=== PATIENT | female | born 1940 | race Caucasian/White ===

== ENCOUNTER → 2020-04-12 15:45 | Outpatient (CLI) | payer MEDICARE, OTHER, SELFPAY ==
--- NOTE | 2020-04-12 | DI.MRI.S_ITS ---
PROCEDURE: MR LUMBAR SPINE WO CON INDICATIONS: low back pain TECHNIQUE: Noncontrast sagittal T1 spin echo and T2 fast echo, sagittal STIR, axial T1 and T2 fast spin echo through the lumbar spine. In cases with scoliosis, additional coronal T2 fast spin echo may be performed. COMPARISON: Prior lumbar spine plain film 03/24/20. FINDINGS: Image quality: Excellent. Alignment and Curvature: There is normal bony alignment. Bone Marrow: Marrow is of normal overall signal. No acute vertebral body compression fractures. Spinal Cord: Conus medullaris terminates at the L1 level. Visualized cord demonstrates normal signal and size. Paraspinous Soft Tissues: No paravertebral masses. There is an apparent complex cyst seen involving the anterior right kidney that measures 1.6 cm, as on series 6 image 9 and on series 5 image 9. This cannot be defined as a simple cyst. T12-L1: No significant abnormality is seen. L1-L2: The disc height is well-preserved. Loss of disc signal is seen at this level. Mild to moderate disc bulge is seen. No significant neural foraminal narrowing is seen. Mild central canal narrowing is seen. L2-L3: The disc height is well-preserved. Loss of disc signal is seen at this level. Moderate disc bulge is seen, which is eccentric to the right. Mild facet joint hypertrophy is seen. Mild bilateral neural foraminal narrowing is seen. Moderate central canal narrowing is seen. L3-L4: The disc height is well-preserved. Loss of disc signal is seen at this level. Moderate disc bulge is seen, with a mild central disc protrusion. Moderate facet joint hypertrophy is seen. Associated hypertrophy of the ligamentum flavum can be seen. There is mild to moderate right-sided and at least moderate left-sided neural foraminal narrowing seen at this level. At least moderate central canal narrowing is seen, as on series 5 image 22. L4-L5: Postoperative changes are seen at this level, with bilateral pedicle screws and vertical fixation rods. A disc spacer is seen. There is associated susceptibility artifact. Moderate bilateral neural foraminal narrowing is seen. Mild central canal narrowing is seen. L5-S1: The disc height is well-preserved. Loss of disc signal is seen at this level. Mild to moderate disc bulge is seen. There is mild right-sided and moderate left-sided facet hypertrophy seen. There is mild to moderate right-sided and at least moderate left-sided neural foraminal narrowing seen. There is a mild degree of compression seen upon the exiting right L5 nerve root. Mild to moderate central canal narrowing is seen. IMPRESSION: Unremarkable L4-L5 postoperative change. Multiple levels of degenerative change are seen, which are most prominent at L5-S1. There is a complex cyst seen involving the right kidney anteriorly that measures 1.6 cm. In the absence of outside prior studies demonstrating this to be a simple cyst, further workup would be recommended, beginning with a renal ultrasound. Dictated by: Magdaleno Rodríguez M.D. on 04/12/2020 at 17:03 Approved by: Magdaleno Rodríguez M.D. on 04/12/2020 at 17:10
== END ==
PROVIDERS: PCP Family Medicine; Referring Provider Orthopaedic Surgery; Visit Provider Orthopaedic Surgery
DX: M54.5 Low back pain (principal); M47.817 Spondylosis without myelopathy or radiculopathy, lumbosacral region; N28.1 Cyst of kidney, acquired; Z98.1 Arthrodesis status
CPT/HCPCS: 72148

== ENCOUNTER → 2020-06-15 16:40 | Outpatient (CLI) | payer MEDICARE, OTHER, SELFPAY ==
--- NOTE | 2020-06-15 | DI.US.S_ITS ---
PROCEDURE: US RENAL COMPLETE INDICATIONS: CYST OF KIDNEY TECHNIQUE: Real-time scanning was performed of the kidneys and bladder, with image documentation. COMPARISON: [facility], MR, MR LUMBAR SPINE WO CON, 04/12/2020, 16:29. FINDINGS: Kidneys: Kidneys are normal in size. Right kidney measures 9.6 cm long; left kidney measures 9.3 cm long. Right renal cortical thickness is 1.1 cm; left renal cortical thickness is 1.5 cm. The kidneys are mildly echogenic. No definite hydronephrosis is seen, although there is mild pelvocaliectasis seen on the left. No shadowing stones are seen. No suspicious solid mass lesions. Bilateral renal cysts are seen, with the largest cyst seen on the right measuring up to 1.8 cm. Cysts are seen involving the left kidney, which measure up to 9 mm. Bladder: There is a suprapubic stoma. The bladder volume is 59 cc. There is apparent mild bladder wall thickening. Please correlate with known patient history. Miscellaneous: No free pelvic fluid. There is a 9 mm hepatic cyst seen involving the right lobe of the liver. The liver demonstrates increased echogenicity. IMPRESSION: Simple appearing renal cysts are seen. A 9 mm right liver cyst is also seen. Mild left-sided pelvocaliectasis, without emanuel hydronephrosis. The kidneys demonstrate increased echogenicity, which is consistent with medical renal disease. Postoperative change of the bladder. The liver demonstrates increased echogenicity. This finding is nonspecific, yet it is most commonly attributed to fatty infiltration. Dictated by: Magdaleno Rodríguez M.D. on 06/16/2020 at 8:21 Approved by: Magdaleno Rodríguez M.D. on 06/16/2020 at 8:25
== END ==
PROVIDERS: PCP Family Medicine; Referring Provider Family Medicine; Visit Provider Family Medicine
DX: N28.1 Cyst of kidney, acquired (principal); K76.89 Other specified diseases of liver
CPT/HCPCS: 76770

== ENCOUNTER → 2020-06-20 10:12 | Outpatient (CLI) | payer MEDICARE, OTHER, SELFPAY ==
--- NOTE | 2020-06-20 | DI.CT.S_ITS ---
PROCEDURE: CT ABDOMEN PELVIS W CON INDICATIONS: FATIGUE TECHNIQUE: After the administration of oral and intravenous contrast, 5 mm thick sections acquired from the diaphragms to the symphysis. 5 mm thick coronal and sagittal reformats were performed. For radiation dose reduction, the following was used: automated exposure control, adjustment of mA and/or kV according to patient size. COMPARISON: None. FINDINGS: Image quality: Excellent. ABDOMEN: Lung bases: A 5 mm pulmonary nodule is present at the left lung base (series 5/image 2). The lung bases are otherwise clear. Solid organs: Liver is normal in size and diffusely hypodense. Focal fat is noted at the falciform ligament. A low-density subcentimeter cyst is present within the right hepatic lobe which likely represents a simple hepatic cyst but is incompletely characterized. Gallbladder is unremarkable . Biliary system is non-dilated. Pancreas enhances normally. Spleen is normal in size and enhancement. No adrenal nodules. Kidneys are normal in size and enhancement, without hydronephrosis. A low-density cystic lesion is present within the midpole of the right kidney. Peritoneum and bowel: Stomach, small bowel, and colon loops are normal in caliber and wall thickness. The appendix is not visualized; however surgical clips are present in the region of the cecum in the lower quadrant suggesting prior appendectomy. No free fluid or air. Nodes and vessels: No retroperitoneal or mesenteric adenopathy. Aorta and inferior vena cava are normal in caliber. There are scattered atheromatous calcifications within the aorta. Miscellaneous: No ventral hernias. PELVIS: Genitourinary: Postoperative changes noted around the decompressed bladder. The uterus is surgically absent. The ovaries are not definitely visualized and may be surgically absent as well. Miscellaneous: No inguinal hernias or adenopathy. Bones: No suspicious bony lesions. No vertebral body compression fractures. Posterior fixation is noted at the lumbosacral junction and appears grossly intact. IMPRESSION: 1. 5 mm left lower lobe pulmonary nodule. Please see follow-up guidelines below. In a high-risk patient, 12 month follow-up is recommended. 2. Hepatic steatosis. 3. No acute intra-abdominal findings or findings to explain patient's fatigue. Fleischner Society criteria for SOLID lung nodule followup. Nodule size (mm)Low-risk patientHigh-risk patient<6 (single or multiple)No routine followup.Optional CT at 12 months. 6-8 (single or multiple)CT at 6-12 months, then optional CT at 18-24 mo.CT at 6-12 months, then CT at 18-24 months. >8 (single)CT at 3 months, PET-CT, or biopsy. Same as for low-risk pts. >8 (multiple)CT at 3-6 months, then optional CT at 18-24 mo.CT at 3-6 months, then CT at 18-24 months. Fleischner Society criteria for SUB-SOLID lung nodule followup. Solitary pure ground-glass nodules<6 mm (ground glass or part solid)No followup needed. 6 mm or larger (ground glass)CT at 6-12 months to confirm persistence, then CT every 2 years until 5 years.6 mm or larger (part solid)CT at 3-6 months to confirm persistence, then annual CT until 5 years if unchanged and solid component remains <6 mm. Multiple sub-solid nodules<6 mmCT at 3-6 months, then CT consider at 2 & 4 years for high risk patients. [address] at 3-6 months. Subsequent management based on most suspicious lesions. Recommendations do not apply to lung cancer screening, patients with immunosuppression, or patients with known primary cancer. Dictated by: Henny Lehman M.D. on 06/20/2020 at 15:54 Approved by: Henny Lehman M.D. on 06/20/2020 at 15:59
[2020-06-20 11:10] LABS: BUN Creatinine Ratio 14.1 (6-22); Blood Urea Nitrogen 18 mg/dL (7-17); Estimated Glomerular Filt Rate 40.3 mL/min (>60)
== END ==
PROVIDERS: PCP Family Medicine; Referring Provider Family Medicine; Visit Provider Family Medicine
DX: R53.83 Other fatigue (principal); R91.1 Solitary pulmonary nodule; K76.0 Fatty (change of) liver, not elsewhere classified
CPT/HCPCS: 36415; 74177; 82565; 84520; Q9967

== ENCOUNTER → 2020-07-05 08:12 | Outpatient (CLI) | payer MEDICARE, OTHER, SELFPAY ==
--- NOTE | 2020-07-05 09:18 | DI.ECHO.S_ITS ---
Echocardiogram Report + + :Name: DOMENICO ONEILL Study Date: 07/05/2020 Height: 60 in : :[facility] Weight: 155 lb : : Gender: Female BSA: 1.7 m2 : :: 1940 Age: 79 yrs BP: 174/91 mmHg: :Reason For Study: FATIGUE : :Ordering Physician: ALMAZ, : :ASHLEIGH Higginbotham Performed By: Saba Moore : :Referring: ASHLEIGH MUSE : + + Interpretation Summary The left ventricle is normal in size and wall thickness. Left ventricular systolic function is normal without focal wall motion abnormalities. The ejection fraction is estimated to be 60-65%. Diastolic parameters suggest a relaxation abnormality of the left ventricle, consistent with probable normal filling pressures. The right ventricle is normal in size and function. Pulmonary artery pressures cannot be estimated because of the lack of a measurable TR jet velocity but the IVC suggests a CVP of around 3 mmHg. Both atria are normal in size. There is no significant valvular heart disease. The aortic root is normal size. Procedure: A two-dimensional transthoracic echocardiogram with color flow and Doppler was performed. The study quality was technically adequate. There is no prior echocardiogram noted for this patient. The patient was in sinus rhythm with heart rates between 58-62 bpm during the exam. Left Ventricle: The left ventricle is normal in size and wall thickness. Left ventricular systolic function is normal without focal wall motion abnormalities. The ejection fraction is estimated to be 60-65%. Diastolic parameters suggest a relaxation abnormality of the left ventricle, consistent with probable normal filling pressures. Right Ventricle: The right ventricle is normal in size and function. Atria: Both atria are normal in size. There is no Doppler evidence for an interatrial shunt. Mitral Valve: The mitral valve is normal in structure and function. There is trace mitral regurgitation. Aortic Valve: The aortic valve is trileaflet. The aortic valve opens well. There is no aortic valve stenosis. No aortic regurgitation is present. Tricuspid Valve: The tricuspid valve is normal in structure and function. Pulmonary artery pressures cannot be estimated because of the lack of a measurable TR jet velocity but the IVC suggests a CVP of around 3 mmHg. There is trace tricuspid regurgitation. Pulmonic Valve: The pulmonic valve is not well visualized. There is no pulmonic valvular regurgitation. There is no significant valvular heart disease. Great Vessels: The aortic root is normal size. The ascending aorta is normal in size. The IVC is of normal diameter and collapses greater than 50% with a sniff. This suggests a low right atrial pressure of 3 mm Hg. Pericardium/ Pleura There is no pericardial effusion. There is no pleural effusion. MMode/2D Measurements & Calculations LVIDd: 4.3 cm LVOT diam: 2.0 cm LVIDs: 2.9 cm Ao root diam: 2.9 cm FS: 32.4 % asc Aorta Diam: 3.0 cm EPSS: 0.72 cm Ao Arch Diam (Prox Trans): 1.9 cm IVSd: 0.77 cm LVPWd: 0.91 cm LV slade. diameter/BSA (cm/m^2): 2.6 LV sys. diameter/BSA (cm/m^2): 1.7 LA A2 area: 13.9 cm2 RA long axis: 4.5 cm LA A4 area: 15.4 cm2 RA area: 14.2 cm2 LA length (vol): 4.9 cm RA vol: 38.3 ml LA vol: 37.1 ml RA : 22.9 ml/m2 LA vol index: 22.1 ml/m2 IVC diam: 0.94 cm RVD1 (basal): 2.6 cm TAPSE: 1.8 cm Doppler Measurements & Calculations Ao V2 max: 139.4 cm/sec LVOT Max Yusef: 94.8 cm/sec Ao V2 mean: 98.6 cm/sec LV V1 max P.6 mmHg Ao max P.8 mmHg LV V1 VTI: 20.0 cm Ao mean P.3 mmHg ROCAEL(I,D): 1.9 cm2 Ao V2 VTI: 33.0 cm ROCAEL(V,D): 2.1 cm2 sev ratio: 0.60 ROCAEL indexed to BSA (cm^2/m^2): 1.1 MV E max yusef: 64.8 cm/sec PA V2 max: 62.6 cm/sec MV A max yusef: 98.4 cm/sec PA V2 mean: 37.1 cm/sec MV E/A: 0.66 PA mean P.71 mmHg Med Peak E' Yusef: 4.6 cm/sec E/E' med: 14.2 Lat Peak E' Yusef: 5.3 cm/sec E/E' lat: 12.2 E/e' average: 13.2 MV dec time: 0.30 sec SV(OT): 61.3 ml Reading Physician:03:31 PM
== END ==
PROVIDERS: PCP Family Medicine; Referring Provider Family Medicine; Visit Provider Family Medicine
DX: R53.83 Other fatigue (principal)
CPT/HCPCS: 93306

== ENCOUNTER → 2020-07-26 13:29 | Outpatient (CLI) | payer MEDICARE, OTHER, SELFPAY ==
--- NOTE | 2020-07-26 13:31 | DI.MRI.S_ITS ---
PROCEDURE: MR HEAD/BRAIN WO CON INDICATIONS: Personality change, word finding difficulty TECHNIQUE: Non-contrast axial T1 spin echo, axial T2 fast spin echo, sagittal and axial FLAIR, coronal T2 fast spin echo, axial gradient echo, axial diffusion and ADC through the brain. COMPARISON: None. FINDINGS: Image quality: Excellent. CSF spaces: Ventricles appear symmetric in size and shape. Basal cisterns are patent. No extra-axial fluid collections. Brain: No intracranial bleeds or mass effects. There is cerebral volume loss for age. There are periventricular and deep white matter chronic small vessel ischemic changes. Brainstem appears normal. Diffusion-weighted images show a punctate focus of subacute or acute ischemic injury at the posterior gyral margin of a left parietal portion of the cerebrum, seen on series 11, image 67. . No chronic ischemic insults. Normal intravascular flow voids are present. Skull and face: Calvarial bone marrow is normal in signal. Orbits are normal. Sinuses: Sinuses and mastoids are clear. IMPRESSION: 1.5 mm focus of restricted diffusion causing focal elevated signal at the posterior border of a left parietal gyrus. No significant microvascular atherosclerotic change is seen within the deep white matter of each hemisphere. No evidence of prior hemorrhage or mass is present. Dictated by: Murphy Álvarez M.D. on 07/26/2020 at 14:44 Approved by: Murphy Álvarez M.D. on 07/26/2020 at 14:47
== END ==
PROVIDERS: PCP Student in an Organized Health Care Education/Training Program; Referring Provider Student in an Organized Health Care Education/Training Program; Visit Provider Student in an Organized Health Care Education/Training Program
DX: F68.8 Other specified disorders of adult personality and behavior (principal); R47.89 Other speech disturbances; Z13.820 Encounter for screening for osteoporosis; M81.0 Age-related osteoporosis without current pathological fracture; Z78.0 Asymptomatic menopausal state; E07.9 Disorder of thyroid, unspecified; N28.9 Disorder of kidney and ureter, unspecified; Z90.722 Acquired absence of ovaries, bilateral; Z91.89 Other specified personal risk factors, not elsewhere classified
CPT/HCPCS: 70551; 77080

== ENCOUNTER → 2020-08-07 10:02 | Outpatient (CLI) | payer MEDICARE, OTHER, SELFPAY ==
--- NOTE | 2020-08-07 10:03 | DI.US.S_ITS ---
PROCEDURE: US CAROTID DOPPLER BI INDICATIONS: CVA TECHNIQUE: Color and pulse Doppler interrogation was performed of both carotid systems, with image documentation and velocity measurements. COMPARISON: None. FINDINGS: Stenosis calculations are based on SRU (Society of Radiologists in Ultrasound) criteria. Right side: Brachial blood pressure: 146/83 mm Hg. Common carotid artery peak systolic velocity: 79 cm/sec. Internal carotid artery peak systolic velocity: 64 cm/sec. Internal carotid artery end diastolic velocity: 21 cm/sec. External carotid artery peak systolic velocity: 71 cm/sec. ICA/CCA peak systolic ratio: 0.8 . Gallegos scale imaging description: Mild plaque at the bifurcation. Percent internal carotid artery stenosis: Less than 50%. Vertebral artery: Flow direction is antegrade. Left side: Brachial blood pressure: 144/74 mm Hg. Common carotid artery peak systolic velocity: 100 cm/sec. Internal carotid artery peak systolic velocity: 62 cm/sec. Internal carotid artery end diastolic velocity: 16 cm/sec. External carotid artery peak systolic velocity: 69 cm/sec. ICA/CCA peak systolic ratio: 0.6. Gallegos scale imaging description: Minimal plaque at the bifurcation. Percent internal carotid artery stenosis: Less than 50%. Vertebral artery: Flow direction is antegrade. IMPRESSION: Less than 50% stenosis of the internal carotid arteries bilaterally. Dictated by: Consuelo Nieto M.D. on 08/07/2020 at 14:48 Approved by: Consuelo Nieto M.D. on 08/07/2020 at 14:50
== END ==
PROVIDERS: PCP Student in an Organized Health Care Education/Training Program; Referring Provider Student in an Organized Health Care Education/Training Program; Visit Provider Student in an Organized Health Care Education/Training Program
DX: I63.9 Cerebral infarction, unspecified (principal); I65.23 Occlusion and stenosis of bilateral carotid arteries
CPT/HCPCS: 93880

== ENCOUNTER 2020-08-17 12:58 | Outpatient (RCR) | payer MEDICARE, OTHER, SELFPAY ==
--- NOTE | 2020-08-17 14:51 | ST.OPIE ---
Visit Care Team Role Provider Type Josh Feliciano MD Attending Provider Physician Primary Care Provider Referring Provider Specialty: Internal Medicine Address: [address] [place] [address], [address], [address] Email: [email or web address] Speech-Language Pathology Initial Evaluation TELECOM COORDINATOR Adult Cognitive Linguistic Eval Start: 08/17/20 13:42 Freq: Status: Active Protocol: Document 08/17/20 13:43 LNK (Rec: 08/17/20 14:46 LNK [id number]) Adult Cognitive Linguistic Evaluation Session Time Visit Start Time 13:30 Visit Stop Time 14:15 Total Visit Minutes 45 Visit Information Visit Number [address] 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 The results of an MRI noted an infarct at the posterior border of the left parietal gyrus. No evidence of prior hemorrhage or mass was present. Immediately following her stroke, Molly experienced word-finding difficulty, which she reports has improved significantly. Currently she states that she does not have any slurring of speech, difficulty expressing her thoughts or difficulty with word finding. She was accompanied by her sister-in- law. Occupation Status employed - back to work Hearing Hearing Level Normal Vision Vision Status Impaired Informal Assessment Receptive Language Normal Yes Receptive Language Impairment(s) Comprehension of conversation Expressive Language Normal Yes Expressive Language Impairment(s) Expression of complex thoughts /ideas,Written expression Pragmatic Language Normal Yes Formal Assessment Standardized Test/Screener Type [facility] Mental Status (UMS) Administration Complete Results [facility] Naming Test Short Version: the results of the BNT indicated the pt was able to name 15/15 items on the short form. One response required a written multiple choice cue (sphinx). THe SLUMS score indicated a score of 28/30, which is considered normal.Molly answered one of four questions wrong following a short paragraph read to her. Findings/Results Language Function Within functional limits Cognitive Function Within functional limits Findings Molly Thrasher presented with speech, language and cognitive abilities WFL. She reported that she has returned to work. She also reported that she feels tired and seems to cry easily. It was explained to her that these symptoms following a stroke are not unusual. She was encouraged to talk to Dr. Vazquez if she continues to experince these symptoms. No ST is indicated at this time. Prognosis Prognosis Good Based on Family support Plan of Care Speech-Language Treatment No Patient/Caregiver Education Described results of evaluation,Patient expressed understanding of evaluation, Family/caregivers expressed understanding of evaluation
--- NOTE | 2020-08-17 15:01 | ST.OPDS ---
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 The results of an MRI noted an infarct at the posterior border of the left parietal gyrus. No evidence of prior hemorrhage or mass was present. Immediately following her stroke, Molly experienced word-finding difficulty, which she reports has improved significantly. Currently she states that she does not have any slurring of speech, difficulty expressing her thoughts or difficulty with word finding. She was accompanied by her sister-in- law. [ End ] Subjective Observations/Patient Presentation Molly Thrasher presented with speech, language and cognitive abilities WFL. She reported that she has returned to work. She also reported that she feels tired and seems to cry easily. It was explained to her that these symptoms following a stroke are not unusual. She was encouraged to talk to Dr. Vazquez if she continues to experience these symptoms. No ST is indicated at this time. [ End ] Chief Complaint(s) Language,Cognitive Assessment Progress Towards Goals Appropriate for Discharge Plan Amount of Therapy Recommended No Further Therapy Frequency of Treatment No Further Therapy Therapy Recommendations Discharge from Speech Therapy
== END 2020-11-15 08:42 ==
LOC: SP 12:58
PROVIDERS: PCP Student in an Organized Health Care Education/Training Program; Referring Provider Student in an Organized Health Care Education/Training Program; Visit Provider Student in an Organized Health Care Education/Training Program
DX: R47.89 Other speech disturbances (principal); I63.9 Cerebral infarction, unspecified
CPT/HCPCS: 92523

== ENCOUNTER → 2022-01-01 11:42 | Outpatient (CLI) | payer MEDICARE, OTHER, SELFPAY ==
[2022-01-01 14:28] LABS: BUN Creatinine Ratio 11.8 (6-22); Blood Urea Nitrogen 15 mg/dL (7-17); Calcium 9.6 mg/dL (8.4-10.2); Carbon Dioxide 23 mmol/L (22-32); Chloride 100 mmol/L (98-107); Estimated Glomerular Filt Rate 40.5 mL/min (>60); Glucose 95 mg/dL (80-110); Sodium 133 mmol/L (137-145)
[2022-01-01 14:55] LABS: HEMOLYSIS 107 (0-50)
[2022-01-01 14:56] LABS: Potassium 4.4 mmol/L (3.4-5.1)
== END ==
PROVIDERS: PCP Student in an Organized Health Care Education/Training Program; Referring Provider Student in an Organized Health Care Education/Training Program; Visit Provider Student in an Organized Health Care Education/Training Program
DX: I10 Essential (primary) hypertension (principal); E03.9 Hypothyroidism, unspecified; N18.31 Chronic kidney disease, stage 3a
CPT/HCPCS: 36415; 80048; 84443

== ENCOUNTER → 2022-01-09 13:30 | Outpatient (CLI) | payer MEDICARE, OTHER, SELFPAY ==
--- NOTE | 2022-01-09 13:31 | DI.CT.S_ITS ---
PROCEDURE: CT SINUS SCREEN WO CON INDICATIONS: Recurrent sinusitis TECHNIQUE: Noncontrast 3.0 mm axial images acquired from the frontal sinuses to the mid-sella, with coronal and sagittal reformats. For radiation dose reduction, the following was used: automated exposure control, adjustment of mA and/or kV according to patient size. COMPARISON: [facility], CT, SINUS SCREEN, 04/05/2010, 11:27. FINDINGS: Image quality: Excellent. Maxillary Sinuses: No bony remodeling or destruction. Sinuses are clear. Ethmoid Air Cells: No bony remodeling or destruction. Sinuses are clear. Sphenoid Sinuses: No bony remodeling or destruction. Sinuses are clear. Frontal Sinuses: No bony remodeling or destruction. Sinuses are clear. Ostiomeatal Complexes: Ostiomeatal complexes are patent, yet they are constitutionally narrowed. Right-sided Dorita air cells can be seen. Miscellaneous: Visualized intra-orbital contents are normal. No paulo bullosa or paradoxical turbinate curvature. No nasal septal deviation. IMPRESSION: No significant active paranasal sinus disease is seen. Constitutionally narrowed right ostiomeatal complex, with Dorita cells. Dictated by: Magdaleno Rodríguez M.D. on 01/09/2022 at 12:52 Approved by: Magdaleno Rodríguez M.D. on 01/09/2022 at 12:53
== END ==
PROVIDERS: PCP Student in an Organized Health Care Education/Training Program; Referring Provider Student in an Organized Health Care Education/Training Program; Visit Provider Student in an Organized Health Care Education/Training Program
DX: J32.9 Chronic sinusitis, unspecified (principal); R51.9 Headache, unspecified
CPT/HCPCS: 70486

== ENCOUNTER → 2022-01-23 08:23 | Outpatient (CLI) | payer MEDICARE, OTHER, SELFPAY ==
--- NOTE | 2022-01-23 08:26 | DI.NM.S_ITS ---
PROCEDURE: NM DEBORAH PERF SPECT REST & STR Rest and exercise myocardial perfusion SPECT with gated imaging and ejection fraction RADIOPHARMACEUTICAL: 25.3 mCi Tc-99m sestamibi IV at rest and 26.0 mCi Tc-99m sestamibi IV at peak exercise. A 6-dcm-mrtrrzdy was performed. INDICATIONS: Angina TECHNIQUE: Radiopharmaceutical was injected at peak stress test, and also at rest. SPECT images were obtained. SPECT myocardial perfusion images were displayed in short axis, horizontal long axis, and vertical long axis views. Gated images were reviewed using [employer] software. COMPARISON: None. CARDIAC STRESS: A modified Kemal treadmill exercise tolerance test was performed by the patient under the supervision of an attending staff. The patient exercised for 3 minutes and 31 seconds; 4.6 METS. Hemodynamic data: There is normal blood pressure and heart rate response to exercise stress. Patient achieved 116% of maximum predicted heart rate at peak exercise at at 163 bpm. Peak blood pressure 160/80. Symptoms: Patient denied chest pain during exercise. EKG: Sinus tachycardia, 1.5-[address] horizontal downsloping segment depressions inferior leads. FINDINGS: Raw data: There is good myocardial labeling by radiotracer. No significant motion artifacts. Skdx-ta-hrcfy ratio is 0.24 (normal is less than 0.38 for sestamibi tracer, and less than 0.50 for thallium tracer). Left ventricle function: Gated images demonstrate normal left ventricle wall thickening. No segmental wall motion abnormality. No transient ischemic dilation; TID is 1.53 (normal less than 1.3). The left ventricle resting end-diastolic volume is 47 mL. Left ventricle stress ejection fraction is >75%; normal values are above 45%. Myocardial perfusion: There is a small size, mild intensity reversible apical defect. IMPRESSION: 1. Abnormal stress test with evidence of apical ischemia on perfusion imaging and inferior ST segment depressions on exercise ECG. 2. Limited exercise capacity. 3. Normal blood pressure response to exercise. Results discussed with Dr. Feliciano. Dictated by: Roxana Carty D.O. on 01/24/2022 at 16:39 Approved by: Roxana Carty M.D. on 01/24/2022 at 16:59
--- NOTE | 2022-01-24 09:07 | P.PCN_ITS ---
Cardiac Stress Test Report Referral & Results Date Patient Seen: 01/24/22 Time Patient Seen: 08:45 Requesting provider: Josh Feliciano Indication: Angina Rest ECG: NSR Procedure Note: Today following both written and verbal informed consent the patient was exercised on Kemal protocol stage 1. Patient went for a total of 3 minutes 31 seconds achieving a maximum heart rate of 163 maximum systolic blood pressure of 160. This is approximately 4.6 METs. Exercise was terminated at this point because of fatigue and chest pressure Patient was also given Cardiolite through a previously started Hep-Lock IV by the nuclear supervising operator approximately 1 minute prior to the cessation of exercise. Exaggerated hemodynamic response to exercise. Marked impairment of exercise capacity (unable to report formal FA I estimate due to modified Kemal protocol). Complained of retrosternal chest pain (5/10) with peak exercise that improved with rest. [address] deviations in inferior leads that resolved slowly with rest. No other EKG changes. Impression: High probability for ischemia. Perfusion imaging pending. Cardiology consultation recommended. Please note: Actual ECG tracings can be found in the PACS system.
== END ==
PROVIDERS: PCP Student in an Organized Health Care Education/Training Program; Referring Provider Student in an Organized Health Care Education/Training Program; Visit Provider Student in an Organized Health Care Education/Training Program
DX: I20.8 Other forms of angina pectoris (principal); R94.39 Abnormal result of other cardiovascular function study
CPT/HCPCS: 78452; 93016; 93017; 93018; A9502

== ENCOUNTER → 2022-01-23 10:16 | Outpatient (CLI) | payer MEDICARE, OTHER, SELFPAY ==
[2022-01-23 12:53] LABS: COVID19 -Nasal RAPID Negative (Negative)
== END ==
PROVIDERS: PCP Student in an Organized Health Care Education/Training Program; Visit Provider Family Medicine Sleep Medicine
DX: Z20.822 Contact with and (suspected) exposure to COVID-19 (principal)
CPT/HCPCS: 87635; C9803

== ENCOUNTER → 2022-02-20 13:44 | Outpatient (CLI) | payer MEDICARE, OTHER, SELFPAY ==
[2022-02-20 14:32] LABS: Reticulocyte Count, Percent 2.2 % (1.1-2.6)
[2022-02-20 14:33] LABS: Hematocrit 31.7 % (36-46); Hemoglobin 10.3 g/dL (12.0-16.0); Mean Corpuscular HGB Conc 32.5 % (30-36); Mean Corpuscular Volume 77.1 fL (80-100); Platelet Count 288 X10^3/uL (150-400); Red Blood Cell Count 4.12 X10^6/uL (4.0-5.2); White Blood Cell Count 9.7 X10^3/uL (4.5-11.0)
[2022-02-20 14:36] LABS: Lactate Dehydrogenase 357 U/L (313-618)
[2022-02-20 14:59] LABS: HEMOLYSIS < 15 (0-50); Iron 64 ug/dL (37-170)
[2022-02-20 15:10] LABS: Percent Iron Saturation 13 % (15-50); Total Iron Binding Capacity 507 ug/dL (265-497); Transferrin 378 mg/dL (206-381)
[2022-02-20 15:11] LABS: Ferritin 9 ng/mL (11-264)
[2022-02-20 15:43] LABS: Folate 6.2 ng/mL (2.76-20.0); Vitamin B12 665 pg/mL (239-931)
[2022-02-21 10:17] LABS: Occult Blood 1 Negative (Negative); Occult Blood 2 Negative (Negative); Occult Blood 3 Negative (Negative); Sample 1 Time 1017
== END ==
PROVIDERS: PCP Student in an Organized Health Care Education/Training Program; Referring Provider Student in an Organized Health Care Education/Training Program; Visit Provider Student in an Organized Health Care Education/Training Program
DX: D64.9 Anemia, unspecified (principal); N18.32 Chronic kidney disease, stage 3b
CPT/HCPCS: 36415; 82270; 82607; 82728; 82746; 83540; 83550; 83615; 85027; 85045

== ENCOUNTER 2022-02-28 11:31 | Inpatient (IN) | payer MEDICARE, OTHER, SELFPAY ==
[2022-02-28] VITALS (17 sets, daily range): BP systolic 135–195; BP diastolic 46–79; PULSE 57–72; RESP 11–21; TEMP 36.3–36.8; O2SAT 96–100; BMI 29.7
--- NOTE | 2022-02-28 11:43 | DI.CT.S_ITS ---
PROCEDURE: CT ANGIO HEAD AND NECK INDICATIONS: severe headache visual changes TECHNIQUE: After the administration of intravenous contrast, 1 mm thick sections acquired from the aortic arch through the [place]. Post-contrast 4.5 mm thick sections then re-acquired from the foramen magnum to the vertex. 3-dimensional whuzfsh-acwxcsrtd-plcrzrsquq (MIP) and/or volume rendering reformats were acquired of the central intracranial vasculature and neck separately. For radiation dose reduction, the following was used: automated exposure control, adjustment of mA and/or kV according to patient size. COMPARISON: [facility], CT, CT STROKE, 02/28/2022, 11:49. FINDINGS: Image quality: Excellent. BRAIN: CSF spaces: Ventricles are normal in size and shape. Basal cisterns are patent. No extra-axial fluid collections. Brain: No midline shift. No intracranial bleeds or masses. Gallegos-white matter interface appears intact. Skull and face: Calvarium and facial bones appear intact, without suspicious lesions. Orbits appear normal. Sinuses: Sinuses and mastoids are clear. HEAD CT ANGIOGRAPHY: Anterior circulation: Intracranial internal carotid arteries are normal in size and flow. The flow within the paired anterior cerebral arteries is normal and symmetric. The flow within the middle cerebral arteries is normal and symmetric. The anterior communicating artery is seen. No aneurysms are seen. Posterior circulation: Visualized portions of the vertebral arteries demonstrate normal caliber, and join to form a normal appearing basilar artery. Flow within the posterior cerebral arteries is normal and symmetric. No aneurysms are seen. NECK CT ANGIOGRAPHY: Carotid system: The great vessels demonstrate a normal variant anatomy as they arise from the aortic arch. The left vertebral artery arises off the aortic arch, an incidental finding. The origins of the common carotid arteries appear patent. The common carotid arteries demonstrate normal caliber and courses. The bifurcation regions are both widely patent. The internal carotid arteries demonstrate mild origin disease without significant stenosis. Posterior circulation: The origins of the vertebral arteries both appear widely patent. The more superior extracranial portions of both vertebral arteries also demonstrate normal courses and calibers. The right vertebral artery is dominant. The left vertebral artery is somewhat diminutive. They join to form a normal appearing basilar artery. Soft tissues: Question superficial left pharyngeal mass obliterating the left puriform sinus. Reference image 91/12. Bones: No suspicious bony lesions. Visualized cervical spine appears normally aligned. Cervical spondylitic change. Likely canal stenosis at C3-C4 and C4-C5. IMPRESSION: 1. No evidence acute stroke, hemorrhage, or intracranial mass. 2. Unremarkable CTA head. No stenosis, aneurysm, occlusion, or focal filling defect. 3. Normal variant origin of the left vertebral artery off the aortic arch. 4. Mild bilateral internal carotid stenotic disease, non flow limiting. 5. Question left pharyngeal mass effacing the left piriformis sinus. 6. Cervical canal stenosis incidentally noted. Comment: Recommend direct visualization to exclude a left pharyngeal mass. Comment: Findings were discussed with Dr. Chanel on 02/28/2022 at 1221 hours Any quantitative measurements of stenosis were performed using NASCET criteria. Dictated by: Narayan Marvin M.D. on 02/28/2022 at 12:07 Approved by: Narayan Marvin M.D. on 02/28/2022 at 12:22
--- NOTE | 2022-02-28 11:43 | DI.CT.S_ITS ---
PROCEDURE: CT STROKE INDICATIONS: severe headache visual changes TECHNIQUE: Noncontrast 4.5 mm thick angled axial sections acquired from the foramen magnum to the vertex, with coronal reformats. For radiation dose reduction, the following was used: automated exposure control, adjustment of mA and/or kV according to patient size. COMPARISON: None. FINDINGS: Image quality: Excellent. CSF spaces: Basal cisterns are patent. No extra-axial fluid collections. The ventricles are symmetric in size and shape. Brain: No intracranial bleeds or masses. There is cerebral volume loss for age, with resultant ventricular and sulcal prominence. There are periventricular and deep white matter chronic small vessel ischemic changes. There is intracranial internal carotid artery atherosclerosis. Skull and face: Calvarium and visualized facial bones appear intact, without suspicious lesions. Sinuses: Visualized sinuses and mastoids are clear. IMPRESSION: 1. No acute intracranial abnormalities. 2. Cerebral volume loss and chronic microvascular ischemic changes. The result was discussed with Dr. Chanel. This study fulfills neurological imaging criteria for inclusion or exclusion of acute stroke therapies based on available published neurological guidelines. Dictated by: Tex Nichols M.D. on 02/28/2022 at 11:58 Approved by: Tex Nichols M.D. on 02/28/2022 at 12:00
[2022-02-28 11:58] LABS: Add Manual Diff / Slide Review NO; Basophils Absolute Auto 0 /uL (0-100); Basophils Percent Auto 0.5 % (0-2); Eosinophils Absolute Auto 100 /uL (0-450); Eosinophils Percent Auto 1.5 % (2-4); Hemoglobin 9.8 g/dL (12.0-16.0); Lymphocytes Absolute Auto 2500 /uL (1100-4500); Lymphocytes Percent Auto 33.1 % (25-40); Mean Corpuscular HGB Conc 32.8 % (30-36); Mean Corpuscular Hemoglobin 25.7 PG (26-34); Mean Corpuscular Volume 78.2 fL (80-100); Monocytes Absolute Auto 500 /uL (0-900); Monocytes Percent Auto 6.9 % (3-14); Neutrophils Absolute Auto 4400 /uL (1500-7000); Platelet Count 248 X10^3/uL (150-400); Red Blood Cell Count 3.83 X10^6/uL (4.0-5.2); Red Cell Distribution Width 17.2 % (11.6-14.8); White Blood Cell Count 7.6 X10^3/uL (4.5-11.0)
[2022-02-28 12:00] LABS: Prothrombin Time 11.8 SECONDS (10.1-12.7)
[2022-02-28 12:02] LABS: PTT Partial Thromboplastin Tim 33 SECONDS (26.4-36.2)
[2022-02-28 12:04] LABS: Alanine Aminotransferase 17 IU/L (<35); Albumin 4.3 g/dL (3.5-5.0); Albumin Globulin Ratio 1.3 (1.0-2.8); Alkaline Phosphatase 84 U/L (38-126); Aspartate Aminotransferase 25 IU/L (14-36); BUN Creatinine Ratio 13.6 (6-22); Bilirubin Total 0.3 mg/dL (0.2-1.3); Blood Urea Nitrogen 21 mg/dL (7-17); Carbon Dioxide 23 mmol/L (22-32); Chloride 97 mmol/L (98-107); Creatine Kinase 45 U/L (30-135); Estimated Glomerular Filt Rate 34 mL/min (>60); Globulin 3.3 g/dL (1.7-4.1); Glucose 121 mg/dL (80-110); HEMOLYSIS < 15 (0-50); Potassium 4.2 mmol/L (3.4-5.1); Sodium 130 mmol/L (137-145); Total Protein 7.6 g/dL (6.3-8.2)
--- NOTE | 2022-02-28 12:21 | ED_ITS ---
HPI - Neuro Symptoms/Deficit General Chief Complaint: Neuro Symptoms/Deficit Stated Complaint: Headaches/confusion/low motorfunction- heart cath Time Seen by Provider: 02/28/22 11:42 Source: patient Mode of arrival: Wheelchair History of Present Illness HPI Narrative: The patient is a 81-year-old female who presents as a code stroke with last known well at 7:00 p.m.. Has history of coronary artery disease with a recent heart catheterization 4 days ago. Presenting today with increasing headache difficulty speaking and right arm weakness. She actually had heart catheterization through her right arm. Since then she has had ongoing headache. She does not typically get headaches. She also self catheterize secondary to vaginal cancer is for multiple years. This morning she had difficulty using her right hand to self-catheterize. also noticed at breakfast she had difficulty feeding herself and holding silverware. She had a hard time getting appropriate words out as well. Headache also seem to be getting worse this morning. Symptoms do seem to be improving she is able to move her right arm and hand. She denies any chest pain or palpitations. No fever or chills. On Anticoagulants: Yes (plavix) Related Data Home Medications Medication Instructions Recorded Confirmed Vitamin D + Calcium 1 tab PO DAILY 08/01/21 01/01/22 aspirin 81 mg tablet,delayed 81 mg PO DAILY 08/01/21 01/01/22 release (Adult Low Dose Aspirin) cetirizine 10 mg tablet 10 mg PO DAILY PRN tab 08/01/21 01/01/22 Previous Rx's Medication Instructions Recorded meclizine 25 mg tablet 25 mg PO DAILY PRN #90 tab 05/30/21 levothyroxine 50 mcg capsule 50 mcg PO DAILY #90 cap 06/15/21 dimenhydrinate 50 mg tablet 50 mg PO Q4-6H PRN #30 tab 08/01/21 (Dramamine) ondansetron 4 mg disintegrating 4 mg PO Q8H PRN #14 tab 08/01/21 tablet triamterene 37.5 1 tab PO DAILY #90 tab 10/13/21 mg-hydrochlorothiazide 25 mg tablet clopidogrel 75 mg tablet 75 mg PO DAILY #90 tab 11/01/21 metoprolol tartrate 50 mg tablet 50 mg PO DAILY #90 tab 11/06/21 pravastatin 20 mg tablet 20 mg PO BEDTIME #90 tab 11/29/21 benzonatate 200 mg capsule 200 mg PO BEDTIME PRN #30 cap 01/01/22 pantoprazole 40 mg tablet,delayed 40 mg PO DAILY #90 tab 01/02/22 release allopurinol 100 mg tablet 100 mg PO DAILY #90 tab 02/01/22 Allergies Allergy/AdvReac Type Severity Reaction Status Date / Time amoxicillin [From Augmentin] Allergy Intermediate nausea/vomi Verified 02/28/22 11:40 ting clavulanic acid Allergy Intermediate nausea/vomi Verified 02/28/22 11:40 [From Augmentin] ting Review of Systems Review of Systems Narrative: GENERAL: Denies chills, fatigue, malaise, fever, sweats, travel HEENT: Denies sinus pain, ear pain, sore throat, difficulty swallowing, neck pain RESPIRATORY: Denies dyspnea, cough, wheezing, hemoptysis, sputum. CARDIOVASCULAR: Denies chest pain, palpitations, orthopnea, edema GASTROINTESTINAL: Denies nausea, vomiting, abdominal pain, diarrhea, constipation, melena. : Denies dysuria, frequency, incontinence, hematuria, urinary retention, flank pain. MUSCULOSKELETAL: Denies weakness, joint pain, or bony pain SKIN: No rash, no erythema, no pruritus NEUROLOGIC: See HPI PSYCHIATRIC: No concerning psychosocial issues. 12 point review of systems is negative except for those stated above and HPI Hematologic/Lymphatic On Anticoagulants: Yes (plavix) Patient History Medical History CVA (cerebral vascular accident) Obstructive sleep apnea Personality change Presbyacusia Vaginal melanoma Word finding difficulty Surgical History H/O cardiac catheterization Family History (Updated 02/28/22 @ 16:26 by Angelo Romero DO) Father CVA (cerebral vascular accident) CAD (coronary artery disease) Mother Congestive heart failure Social History household members: children Smoking Status: Never smoker alcohol intake: current Smoking Status: Never smoker alcohol intake frequency: holidays/special occasions only Substance Use Type: does not use Exam Initial Vital Signs Initial Vital Signs: Vital Signs Temperature 98.2 F 02/28/22 11:32 Pulse Rate 72 02/28/22 11:32 Respiratory Rate 15 02/28/22 11:32 Blood Pressure 195/78 H 02/28/22 11:32 Pulse Oximetry 98 02/28/22 11:32 GENERAL: Alert 81-year-old female appears uncomfortable and in pain HEENT: Head atraumatic,EOMI, pupils reactive, face symmetric, moist mucous membranes CARDIOVASCULAR: Regular rate and rhythm without murmurs, rubs or gallops. RESPIRATORY: Breath sounds equal bilaterally, no wheezes rales or rhonchi. ABDOMEN: Soft, nontender. Normoactive bowel sounds all 4 quadrants. No guarding or rebound. EXTREMITIES: Normal range of motion, no clubbing or edema. Neurovascularly intact. Peripheral pulses all intact slight contusion noted and right wrist but radial pulses felt NEUROLOGICAL: Alert and oriented x4.Normal gait and speech. Cranial nerves II through XII grossly intact. Good [id number], bilateral lower extremity weakness unable to do heel to love, strength equal bilaterally, difficulty with word finding but no slurring of speech sensation in tact to soft touch bilaterally, no visual changes, no facial droop SKIN: Warm, dry, no laceration, no petechiae, no rashes or lesions. Scores NIH Stroke Scale Level of Conciousness: Alert, keenly responsive Ask month/age: Answers both questions correctly. Open/close eyes, close hand: Performs both tasks correctly Best gaze horizontal: Normal Visual kaye: No visual loss Facial palsy: Normal symetrical movement Left arm drift: No drift for full 10 sec Right arm drift: No drift for full 10 sec Left leg drift: No drift for full 5 sec Right leg drift: No drift for full 5 sec Limb ataxia: Absent Sensory on face/arms/legs: Normal, no sensory loss Best language: Mild to moderate, slurs some words Dysarthria: Normal Extinction or inattention: No abnormality Total NIH Stroke scale score: 1 Course Orders Ordered: ED Orders 02/28/22 11:40 CBC Auto Diff [Complete Blood Count AUTO DIFF] Stat CMP [Comprehensive Metabolic Panel] Stat PT [Prothrombin Time INR] Stat PTT [Partial Thromboplastin Time] Stat Troponin & CK Cardiac Panel Stat 02/28/22 11:[address] angio head and neck Stat 02/28/22 11:45 EKG-12 Lead Stat 02/28/22 12:47 COVID19 -Nasal RAPID/Pre-Proc Stat 02/28/22 12:57 MR head/brain wo/w con Stat 03/01/22 05:00 Basic Metabolic Panel DAILY Complete Blood Count AUTO DIFF DAILY Magnesium DAILY 03/02/22 05:00 Basic Metabolic Panel DAILY Complete Blood Count AUTO DIFF DAILY Magnesium DAILY 03/03/22 05:00 Basic Metabolic Panel DAILY Complete Blood Count AUTO DIFF DAILY Magnesium DAILY Acetaminophen (Acetaminophen 325 Mg Tablet) 975 mg PO Q8HR PRN PRN Reason: Pain, Mild (1-3) Acetaminophen/Butalbital/Caffeine (Butalb/Apap/Caffeine 50/325/40 Tablet) 1 each PO Q6HR PRN PRN Reason: Headache Last Admin: 02/28/22 16:33 Dose: 1 each Documented by: MIGUEL Aspirin (Aspirin Ec 81 Mg Tablet) 81 mg PO DAILY [facility] Atorvastatin Calcium (Atorvastatin 20 Mg Tablet) 80 mg PO BEDTIME ELSY Last Admin: 02/28/22 20:08 Dose: 80 mg Documented by: IFRAH Clopidogrel Bisulfate (Clopidogrel 75 Mg Tablet) 75 mg PO DAILY [facility] Enoxaparin Sodium (Enoxaparin 30 Mg/0.3 Ml Syringe) 30 mg SUBCUT DAILY [facility] Naloxone HCl (Naloxone 0.4 Mg/Ml Vial) 0.2 mg IV Q2MIN PRN PRN Reason: Opiate Reversal Ondansetron HCl (Ondansetron 4 Mg Odt) 4 mg PO Q8HR PRN PRN Reason: Nausea And Vomiting Last Admin: 02/28/22 20:08 Dose: 4 mg Documented by: IFRAH Discontinued Medications Acetaminophen (Acetaminophen 325 Mg Tablet) 975 mg PO NOW ONE Stop: 02/28/22 14:01 Last Admin: 02/28/22 14:13 Dose: 975 mg Documented by: USHA Vital Signs Vital signs: Vital Signs - 8 hr 02/28/22 12:30 02/28/22 12:31 02/28/22 13:00 Pulse Rate 61 60 57 L Respiratory Rate 14 13 17 Blood Pressure 135/61 Pulse Oximetry 99 98 02/28/22 13:56 02/28/22 13:59 02/28/22 14:00 Pulse Rate 69 66 65 Respiratory Rate 21 14 Blood Pressure 152/74 H 157/78 H Pulse Oximetry 98 100 99 MDM - Neuro Symptoms/Deficit Lab Data Result diagrams: 02/28/22 11:40 05/05/22 11:40 Labs: Lab Results 02/28/22 02/28/22 02/28/22 Range/Units 11:40 11:40 11:40 WBC 7.6 (4.5-11.0) X10^3/uL RBC 3.83 L (4.0-5.2) X10^6/uL Hgb 9.8 L (12.0-16.0) g/dL Hct 30.0 L (36-46) % MCV 78.2 L (80-100) fL MCH 25.7 L (26-34) PG MCHC 32.8 (30-36) % RDW 17.2 H (11.6-14.8) % Plt Count 248 (150-400) X10^3/uL Neut % (Auto) 58.0 (50-75) % Lymph % (Auto) 33.1 (25-40) % [place] % (Auto) 6.9 (3-14) % Eos % (Auto) 1.5 L (2-4) % Baso % (Auto) 0.5 (0-2) % Neut # (Auto) 4400 (5269-0292) /uL Lymph # (Auto) 2500 (2365-8978) /uL [place] # (Auto) 500 (0-900) /uL Eos # (Auto) 100 (0-450) /uL Baso # (Auto) 0 (0-100) /uL PT 11.8 (10.1-12.7) SECONDS INR 1.0 (0.9-1.3) APTT 33 (26.4-36.2) SECONDS Sodium 130 L (137-145) mmol/L Potassium 4.2 (3.4-5.1) mmol/L Chloride 97 L (98-107) mmol/L Carbon Dioxide 23 (22-32) mmol/L BUN 21 H (7-17) mg/dL Creatinine 1.54 H (0.52-1.04) mg/dL Estimated GFR 34 L (>60) mL/min BUN/Creatinine Ratio 13.6 (6-22) Glucose 121 H (80-110) mg/dL Calcium 9.0 (8.4-10.2) mg/dL Total Bilirubin 0.3 (0.2-1.3) mg/dL AST 25 (14-36) IU/L ALT 17 (<35) IU/L Alkaline Phosphatase 84 (38-126) U/L Total Creatine Kinase 45 (30-135) U/L CK-MB (CK-2) TNP CK-MB (CK-2) Rel Index TNP Troponin I 0.040 H (0.01-0.034) ng/mL Total Protein 7.6 (6.3-8.2) g/dL Albumin 4.3 (3.5-5.0) g/dL Globulin 3.3 (1.7-4.1) g/dL Albumin/Globulin Ratio 1.3 (1.0-2.8) SARS-CoV-2 (PCR) (Negative) 02/28/22 Range/Units 12:47 WBC (4.5-11.0) X10^3/uL RBC (4.0-5.2) X10^6/uL Hgb (12.0-16.0) g/dL Hct (36-46) % MCV (80-100) fL MCH (26-34) PG MCHC (30-36) % RDW (11.6-14.8) % Plt Count (150-400) X10^3/uL Neut % (Auto) (50-75) % Lymph % (Auto) (25-40) % [place] % (Auto) (3-14) % Eos % (Auto) (2-4) % Baso % (Auto) (0-2) % Neut # (Auto) (8155-5919) /uL Lymph # (Auto) (9203-1261) /uL [place] # (Auto) (0-900) /uL Eos # (Auto) (0-450) /uL Baso # (Auto) (0-100) /uL PT (10.1-12.7) SECONDS INR (0.9-1.3) APTT (26.4-36.2) SECONDS Sodium (137-145) mmol/L Potassium (3.4-5.1) mmol/L Chloride (98-107) mmol/L Carbon Dioxide (22-32) mmol/L BUN (7-17) mg/dL Creatinine (0.52-1.04) mg/dL Estimated GFR (>60) mL/min BUN/Creatinine Ratio (6-22) Glucose (80-110) mg/dL Calcium (8.4-10.2) mg/dL Total Bilirubin (0.2-1.3) mg/dL AST (14-36) IU/L ALT (<35) IU/L Alkaline Phosphatase (38-126) U/L Total Creatine Kinase (30-135) U/L CK-MB (CK-2) CK-MB (CK-2) Rel Index Troponin I (0.01-0.034) ng/mL Total Protein (6.3-8.2) g/dL Albumin (3.5-5.0) g/dL Globulin (1.7-4.1) g/dL Albumin/Globulin Ratio (1.0-2.8) SARS-CoV-2 (PCR) Negative (Negative) Point of Care Testing Glucose POC [address] scan - head: Radiologist's Impression: ?Molly Thrasher MR#: [id number] : 1940 Acct:[id number] Age/Sex: 81 / F Date of Service: 02/28/22 Loc: ED Accession Number: [id number] ?? Procedure: CT Stroke Ordering Provider: Lucia Chanel D.O. PROCEDURE:? CT STROKE ? INDICATIONS:? severe headache visual changes ? TECHNIQUE:? Noncontrast 4.5 mm thick angled axial sections acquired from the foramen magnum to the vertex, with coronal reformats.? For radiation dose reduction, the following was used:? automated exposure control, adjustment of mA and/or kV according to patient size.? ? COMPARISON:? None. ? FINDINGS:? Image quality:? Excellent.? ? CSF spaces:? Basal cisterns are patent.? No extra-axial fluid collections.? The ventricles are symmetric in size and shape.? ? Brain:? No intracranial bleeds or masses.? There is cerebral volume loss for age, with resultant ventricular and sulcal prominence.? There are periventricular and deep white matter chronic small vessel ischemic changes.? There is intracranial internal carotid artery atherosclerosis.? ? Skull and face:? Calvarium and visualized facial bones appear intact, without suspicious lesions.? ? Sinuses:? Visualized sinuses and mastoids are clear.? ? IMPRESSION:? ? 1. No acute intracranial abnormalities. ? 2. Cerebral volume loss and chronic microvascular ischemic changes. ? The result was discussed with Dr. Chanel. ? This study fulfills neurological imaging criteria for inclusion or exclusion of acute stroke therapies based on available published neurological guidelines.? ? ? Dictated by: Tex Nichols M.D. on 02/28/2022 at 11:58 ? ? Approved by: Tex Nichols M.D. on 02/28/2022 at 12:00 ? CTA - brain/neck: Radiologist's Impression: Signed Patient: Molly Thrasher MR#: [id number] : 1940 Acct:[id number] Age/Sex: 81 / F Date of Service: 02/28/22 Loc: ED Accession Number: [id number] ?? Procedure: CT angio head and neck Ordering Provider: Lucia Chanel D.O. PROCEDURE:? CT ANGIO HEAD AND NECK ? INDICATIONS:? severe headache visual changes ? TECHNIQUE:? After the administration of intravenous contrast, 1 mm thick sections acquired from the aortic arch through the [place].? Post-contrast 4.5 mm thick sections then re-acquired from the foramen magnum to the vertex.? 3-dimensional tbtmogx-usgimphmb-knnpanqeiu (MIP) and/or volume rendering reformats were acquired of the central intracranial vasculature and neck separately. For radiation dose reduction, the following was used:? automated exposure control, adjustment of mA and/or kV according to patient size.? ? COMPARISON:? [facility], CT, CT STROKE, 02/28/2022, 11:49. ? FINDINGS:? Image quality:? Excellent.? ? BRAIN:? CSF spaces:? Ventricles are normal in size and shape.? Basal cisterns are patent.? No extra-axial fluid collections.? ? Brain:? No midline shift.? No intracranial bleeds or masses.? [place]-white matter interface appears intact.? ? Skull and face:? Calvarium and facial bones appear intact, without suspicious lesions.? Orbits appear normal.? ? Sinuses:? Sinuses and mastoids are clear.? ? HEAD CT ANGIOGRAPHY:? Anterior circulation:? Intracranial internal carotid arteries are normal in size and flow.? The flow within the paired anterior cerebral arteries is normal and symmetric.? The flow within the middle cerebral arteries is normal and symmetric.? The anterior communicating artery is seen.? No aneurysms are seen.? ? Posterior circulation:? Visualized portions of the vertebral arteries de monstrate normal caliber, and join to form a normal appearing basilar artery.? Flow within the posterior cerebral arteries is normal and symmetric.? No aneurysms are seen.? ? NECK CT ANGIOGRAPHY:? Carotid system:? The great vessels demonstrate a normal variant anatomy as they arise from the aortic arch.? The left vertebral artery arises off the aortic arch, an incidental finding.? The origins of the common carotid arteries appear patent.? The common carotid arteries demonstrate normal caliber and courses.? The bifurcation regions are both widely patent.? The internal carotid arteries demonstrate mild origin disease without significant stenosis. ? Posterior circulation:? The origins of the vertebral arteries both appear widely patent.? The more superior extracranial portions of both vertebral arteries also demonstrate normal courses and calibers.? The right vertebral artery is dominant.? The left vertebral artery is somewhat diminutive.? They join to form a normal appearing basilar artery.? ? Soft tissues:? Question superficial left pharyngeal mass obliterating the left puriform sinus.? Reference image 91/12. ? Bones:? No suspicious bony lesions.? Visualized cervical spine appears normally aligned.? Cervical spondylitic change.? Likely canal stenosis at C3-C4 and C4-C5. ? ? IMPRESSION:? ? 1. No evidence acute stroke, hemorrhage, or intracranial mass. ? 2. Unremarkable CTA head.? No stenosis, aneurysm, occlusion, or focal filling defect. ? 3. Normal variant origin of the left vertebral artery off the aortic arch.? ? 4. Mild bilateral internal carotid stenotic disease, non flow limiting. ? 5. Question left pharyngeal mass effacing the left piriformis sinus. ? 6. Cervical canal stenosis incidentally noted. ? Comment:? Recommend direct visualization to exclude a left pharyngeal mass. ? Comment: Findings were discussed with Dr. Chanel on? 02/28/2022 at 1221 hours ? Any quantitative measurements of stenosis were performed using NASCET criteria.? ? ? Dictated by: Narayan Marvin M.D. on 02/28/2022 at 12:07 ? ? Approved by: Narayan Marvin M.D. on 02/28/2022 at 12:22 ? MR stroke: Radiologist's Impression: tient: Molly Thrasher MR#: [id number] : 1940 Acct:[id number] Age/Sex: 81 / F Date of Service: 02/28/22 Loc: ED Accession Number: [id number] ?? Procedure: MR head/brain wo/w con Ordering Provider: Lucia Chanel D.O. PROCEDURE:? MR HEAD/BRAIN WO/W CON ? INDICATIONS:? tia right sided weakness, and speech ? TECHNIQUE:? Noncontrast axial T1 spin echo, axial T2 fast spin echo, sagittal and axial FLAIR, coronal T2 fast spin echo, axial gradient echo, axial diffusion and ADC through the brain.? After the administration of contrast, axial and coronal 3D VIBE or T1 s pin echo with fat saturation through the brain.? ? COMPARISON:? None. ? FINDINGS:? Image quality:? Excellent.? ? CSF Spaces:? Basal cisterns are patent.? No extra-axial fluid collections.? Ventricles are normal in size and shape.? ? Brain:? Small focus of restricted diffusion in the high left parietal lobe (series 11, image 68 and 67).? No other restricted diffusion.? The major intracranial vascul ar flow-related signal voids are maintained.? No unexpected intracranial susceptibility.? Mild global cerebral volume loss and chronic microvascular ischemic changes. ? Skull and face:? Calvarial marrow is normal in signal.? Orbits appear normal.? ? Sinuses:? Sinuses and mastoids appear clear.? ? IMPRESSION:? Small acute left parietal infarct. ? ? Dictated by: Oscar Edmondson M.D. on 02/28/2022 at 13:51 ? ? ECG Data Interpretation: Normal sinus rhythm rate 61 PA interval 202 QRS [address] changes T-wave inversion noted in lead 3 only no priors to compare MDM Narrative Medical decision making narrative: Patient not a tPA candidate last known well was 7:00 p.m. last evening. Also symptoms of right arm weakness are improving. But she still is having some more trouble in the emergency department. Blood pressure has come down without any intervention. MRI confirms CVA. Patient has good strong peripheral pulses in all extremities. Dr. Romero accepts patient Discharge Plan Departure Patient Disposition: Admitted as Observation Clinical Impression: CVA (cerebral vascular accident) Admit Date/Time: 02/28/22 14:12 Admit Provider: Angelo Romero
--- NOTE | 2022-02-28 12:57 | DI.MRI.S_ITS ---
PROCEDURE: MR HEAD/BRAIN WO/W CON INDICATIONS: tia right sided weakness, and speech TECHNIQUE: Noncontrast axial T1 spin echo, axial T2 fast spin echo, sagittal and axial FLAIR, coronal T2 fast spin echo, axial gradient echo, axial diffusion and ADC through the brain. After the administration of contrast, axial and coronal 3D VIBE or T1 spin echo with fat saturation through the brain. COMPARISON: None. FINDINGS: Image quality: Excellent. CSF Spaces: Basal cisterns are patent. No extra-axial fluid collections. Ventricles are normal in size and shape. Brain: Small focus of restricted diffusion in the high left parietal lobe (series 11, image 68 and 67). No other restricted diffusion. The major intracranial vascular flow-related signal voids are maintained. No unexpected intracranial susceptibility. Mild global cerebral volume loss and chronic microvascular ischemic changes. Skull and face: Calvarial marrow is normal in signal. Orbits appear normal. Sinuses: Sinuses and mastoids appear clear. IMPRESSION: Small acute left parietal infarct. Dictated by: Oscar Edmondson M.D. on 02/28/2022 at 13:51 Approved by: Oscar Edmondson M.D. on 02/28/2022 at 13:53
[2022-02-28 13:13] LABS: COVID19 -Nasal RAPID Negative (Negative)
[2022-02-28] MEDS: ACETAMINOPHEN 325 MG TABLET 975 MG PO (14:13)
--- NOTE | 2022-02-28 16:01 | PT.IIE ---
Medical History (Last Reviewed 02/28/22 @ 16:26 by Angelo Romero DO) CVA (cerebral vascular accident) Obstructive sleep apnea Personality change Presbyacusia Vaginal melanoma Word finding difficulty Physical Therapy Inpatient Evaluation/Re-Eval M1 PT/OT-IP Prior Functional Status Start: 02/28/22 16:36 Freq: NEEDED Status: Active Protocol: Document 02/28/22 16:01 AB (Rec: 02/28/22 16:54 AB [id number]) Medical Review Prior Functional Status Medical History Reviewed Yes Communication able to make needs known Mobility and Gait pt stated that she is independent with all mobilities and ambulation without AD Social History Household Members children Living Arrangements House Number of Floors (Floors) One Floor Number of Stairs To Enter/Railing? no steps to enter Home Environment Standard Height Toilet,Tub/ Shower Home Equipment Four Wheel Walker,Shower Seat without Backrest,Grab Bars In Shower Additional Social History Comment pt's son lives at the back lot on pt's house and can assist pt M2 PT-IP Current Condition Start: 02/28/22 16:36 Freq: NEEDED Status: Active Protocol: Document 02/28/22 16:01 AB (Rec: 02/28/22 16:54 AB [id number]) Physical Therapy Current Condition Current Condition Evaluation Date 02/28/22 Treatment Diagnosis L CVA; difficulty in walking Onset Date 02/28/22 M3 PT-IP Subjective Start: 02/28/22 16:36 Freq: NEEDED Status: Active Protocol: Document 02/28/22 16:01 AB (Rec: 02/28/22 16:54 [email or web address] Subjective Physical Therapy Visit Type Type Initial Evaluation Visit Start Time 16:01 Visit Stop Time 16:31 Total Visit Minutes 30 Number of PHOTOGRAPHIC TECHNICIAN Visits 0 Physical Therapy Visit Comments Patient Comments c/o feeling tired but agreed to move with PT Therapy Pain Assessment Pain When Pain Assessed At Rest Pain Present Pain Present Pain Reported Location head Intensity 6 Scale Used Numeric (0 - 10) Pain Management Techniques Modification of Treatment,Re- positioning,Timing of Activity with Medications M4 PT-IP Mobility and Gait Start: 02/28/22 16:36 Freq: NEEDED Status: Active Protocol: Document 02/28/22 16:01 AB (Rec: 02/28/22 16:54 AB [id number]) PT-Bed Mobility Assessment Supine to Sit Supine to Sit Independent Sit to Supine Sit to Supine Independent PT-Transfer Assessment Sit to and From Stand Sit to and from Stand Standby Assistance Equipment Transfer Assistive Device None,Gait Belt Orthotic/Prosthetic Devices or Brace: No Transfers Transfer Destination Toilet Transfer Technique ambulated Transfer Ability Level of Assist Standby Assistance,Contact Guard Assistance,1 Person Assistance,Use of Upper Extremities Comments Mobility Comments BP: 155/70 . completed bed mobility mod I. pt requested to use the toilet. completed sit to stand SBA and ambulated to the toilet SBA to CGA. managed hygiene care and brief without assistance. ambulated to the sink without AD SBA to CGA and able to maintain standing leaning on counter SBA. ambulated more in room without AD SBA to CGA ~ 40 ft. pt presents with shuffling gait. pt stated that she is tired. pt went back to bed. mod I with bed mobility. positioned in bed. call light and table placed within reach. Gait Assessment Gait Gait Assistance Required: Standby Assistance,Contact Guard Assist,1 Person Assist Distance (Feet) 40 Able to Maintain Weight Bearing Status Yes During Gait Assistive Devices Assistive Device None,Gait Belt Orthotic/Prosthetic Devices or Brace: No Gait Deviations General Gait Pattern Decreased Stride Length, Decreased Feet Clearance Factors Limiting Gait Function Factors Limiting Gait Function Decreased Activity Tolerance, Decreased Strength,Pain,Poor Balance PT-Balance Assessment Sitting Balance and Reactions Static Sitting Balance Ability Normal Dynamic Sitting Balance Ability Normal Standing Balance and Reactions Static Standing Balance Ability Good Dynamic Standing Balance Ability Fair Device Used without AD Comments Other Balance Tests/Deviations/Treatment standing with EC: steady : standing with perturbation: steady standing with NBOS: steady M5 PT-IP Objective Assessments Start: 02/28/22 16:36 Freq: NEEDED Status: Active Protocol: Document 02/28/22 16:01 AB (Rec: 02/28/22 16:54 AB [id number]) Orientation Orientation/Cognition Level of Alertness Alert Orientation Name,Age,Birthday,Month,Date, Year,Day of Week,Place, Situation Language Function Ability No Deficits Noted Safety Awareness Understands Safety Issues Memory Description No Deficits Noted Gross Range of Motion Lower Extremity ROM Assessment Within Functional Limits Strength Lower Extremity Strength Assessment Within Functional Limits Coordination Assessment Gross Coordination Gross Coordination WNL Sensation Assessment Sensation Gross Sensation WNL Muscle Tone Muscle Tone WNL Yes M6 PT-IP Treatment Start: 02/28/22 16:36 Freq: NEEDED Status: Active Protocol: Document 02/28/22 16:01 AB (Rec: 02/28/22 16:54 AB [id number]) Physical Therapy Treatment Education Education Provided Safety M7 PT-IP Assessment and Plan Start: 02/28/22 16:36 Freq: NEEDED Status: Active Protocol: Document 02/28/22 16:01 AB (Rec: 02/28/22 16:54 AB [id number]) PT Summary Assessment and Plan Potential Rehabilitation Potential Good Status of Condition at Evaluation Stable Summary Impairments Pain,ROM,Strength,Balance, Coordination,Sensation,Tone, Cognition,Bed Mobility, Transfers,Gait,Activity Tolerance Assessment Summary pt requiring SBA to CGA with mobility without AD. pt c/o feeling tired. will continue to assess progress. pt will have her son to assist her at home. Goals Transfer Goal Independent Gait Goal Independent Gait Distance 300 Days to Meet Goals 3 Frequency of Treatment Frequency Of Treatment Once a Day Treatment Plan Physical Therapy Treatment Plan Bed Mobility Training,Transfer Training,Gait Training, Therapeutic Exercise,Balance Retraining,Discharge Planning, Hot or Cold Pack,Neuromuscular Re-ed,Coordination Retraining Recommendations To Nursing Amount of Assist Needed 1 Person Assist Discharge Recommendations PT Discharge Recommendations Home with Assistance Transportation Needs at Discharge Private Vehicle
--- NOTE | 2022-02-28 16:14 | PM.HP.1 ---
History of Present Illness History of Present Illness Date Patient Seen: 02/28/22 Time Patient Seen: 16:14 Chief complaint: Headaches/confusion/low motorfunction- heart cath Narrative: 81 year old female with PMH of prior CVA, CAD with recent stenting on 02/25/22 at [facility], presents with word finding difficulties and right arm weakness that started this morning at approximately 10:30 a.m. patient states that since her left heart catheterization on Friday, she has been having intermittent headaches which are severe. She is mildly nauseous but has had no vomiting with these headaches. They had been doing better until it returned again this morning, at the same time she was about to eat breakfast and could not use her right hand, and was having a hard time speaking according to the . He noticed no lower extremity weakness, or facial droop. She denies any numbness, fevers, chills, palpitations. She states the right side of her vision is blurry or than the left, though it is slightly improving now. She currently still has a headache but denies any nausea or vomiting. She has had no abdominal pain, diarrhea, constipation, dysuria, or urinary frequency. She denies any lower extremity edema or rash. In the emergency room, the patient was mildly hypertensive but the remainder of her vital signs are unremarkable. Laboratory evaluation showed a stable anemia from her most recent labs with a hemoglobin of 9.8. Coagulation studies were unremarkable. Chemistries revealed a mild hyponatremia with a sodium of 130. Creatinine was 1.54, her baseline is unknown. Troponin was mildly elevated at 0.040. 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 MRI has already been performed and did show a left-sided acute infarct. Patient History Medical History CVA (cerebral vascular accident) Obstructive sleep apnea Personality change Presbyacusia Vaginal melanoma Word finding difficulty Surgical History H/O cardiac catheterization Family & Social History Family History (Updated 02/28/22 @ 16:26 by Angelo Romero DO) Father CVA (cerebral vascular accident) CAD (coronary artery disease) Mother Congestive heart failure Social History: household members children Prior Living Arrangements House Safety & Behavioral: Feels Safe in Current Yes Environment Been Physically Hurt or No Threatened By a Person Tobacco & Substance use: Smoking Status Never smoker alcohol intake current alcohol intake frequency holiday/special occasion Substance Use Type does not use Meds Home Medications and Allergies Home Medications Medication Instructions Recorded Confirmed Type meclizine 25 mg tablet 25 mg PO DAILY PRN #90 tab 05/30/21 01/01/22 Rx levothyroxine 50 mcg capsule 50 mcg PO DAILY #90 cap 06/15/21 01/01/22 Rx Vitamin D + Calcium 1 tab PO DAILY 08/01/21 01/01/22 History aspirin 81 mg tablet,delayed 81 mg PO DAILY 08/01/21 01/01/22 History release (Adult Low Dose Aspirin) cetirizine 10 mg tablet 10 mg PO DAILY PRN tab 08/01/21 01/01/22 History dimenhydrinate 50 mg tablet 50 mg PO Q4-6H PRN #30 tab 08/01/21 01/01/22 Rx (Dramamine) ondansetron 4 mg disintegrating 4 mg PO Q8H PRN #14 tab 08/01/21 01/01/22 Rx tablet triamterene 37.5 1 tab PO DAILY #90 tab 10/13/21 01/01/22 Rx mg-hydrochlorothiazide 25 mg tablet clopidogrel 75 mg tablet 75 mg PO DAILY #90 tab 11/01/21 01/01/22 Rx metoprolol tartrate 50 mg tablet 50 mg PO DAILY #90 tab 11/06/21 01/01/22 Rx pravastatin 20 mg tablet 20 mg PO BEDTIME #90 tab 11/29/21 01/01/22 Rx benzonatate 200 mg capsule 200 mg PO BEDTIME PRN #30 cap 01/01/22 01/01/22 Rx pantoprazole 40 mg tablet,delayed 40 mg PO DAILY #90 tab 01/02/22 Rx release allopurinol 100 mg tablet 100 mg PO DAILY #90 tab 02/01/22 Rx Allergies Allergy/AdvReac Type Severity Reaction Status Date / Time amoxicillin [From Augmentin] Allergy Intermediate nausea/vomi Verified 02/28/22 11:40 ting clavulanic acid Allergy Intermediate nausea/vomi Verified 02/28/22 11:40 [From Augmentin] ting Review of Systems Review of Systems Narrative: All other systems reviewed with the patient and are negative unless otherwise stated. Exam Vital Signs (past 8 hours): - 02/28/22 11:32 02/28/22 11:38 02/28/22 11:39 Temperature 98.2 F Pulse Rate 72 69 Respiratory Rate 15 Blood Pressure 195/78 H 195/79 H Pulse Oximetry 98 98 99 02/28/22 12:00 02/28/22 12:02 02/28/22 12:30 Temperature Pulse Rate 65 61 Respiratory Rate 11 L 14 Blood Pressure 152/64 H Pulse Oximetry 98 99 99 02/28/22 12:31 02/28/22 13:00 02/28/22 13:56 Temperature Pulse Rate 60 57 L 69 Respiratory Rate 13 17 Blood Pressure 135/61 Pulse Oximetry 98 98 02/28/22 13:59 02/28/22 14:00 02/28/22 14:35 Temperature 98.3 F Pulse Rate 66 65 58 L Respiratory Rate 21 14 16 Blood Pressure 152/74 H 157/78 H 146/54 H Pulse Oximetry 100 99 100 02/28/22 14:41 Temperature Pulse Rate Respiratory Rate Blood Pressure Pulse Oximetry 98 Oxygen Delivery Method Room Air Oxygen Flow Rate 0 Narrative Exam Narrative: General:? Patient is well developed and well nourished, in no distress at this time. HEENT:? Normocephalic, atraumatic, extraocular muscles intact, oral pharynx is clear and mucous membranes are moist. Neck: supple and symmetric, trachea is midline, no cervical adenopathy. Negative for JVD Chest:? Normal AP diameter and contour without kyphoscoliosis, no tachypnea, equal chest rise bilaterally. Lungs:? CTA b/l no wheezing rhonchi or rales. Cardio:?RRR no m/r/g. Radial pulses are +2 bilaterally. Abdomen: S NT ND. No CVA tenderness. Musculoskeletal:? Muscle strength and tone are equal within normal limits, no deformity. Extremities: No edema or joint effusions. No cyanosis or clubbing. Skin:? Pale,? Warm to touch,dry and intact without rashes, ulcerations or petechiae.? There is bruising on her right wrist from recent left heart catheterization. Neuro:? Alert and orientated x3,? sensation to touch intact in all extremities, no gross deficits noted of cranial nerves. She has mild word-finding difficulties, and reports right-sided blurry vision. Psych:? Patient has a well-kept appearance, appropriate affect, mental status attitude thought context and judgment are appropriate for age. Objective ECG Impression: Normal sinus rhythm without evidence of acute ischemia, as interpreted by me. Labs Result Diagrams: 02/28/22 11:40 02/28/22 11:40 Labs: Laboratory Results - last 24 hr 02/28/22 02/28/22 02/28/22 11:40 11:40 11:40 WBC 7.6 RBC 3.83 L Hgb 9.8 L Hct 30.0 L MCV 78.2 L MCH 25.7 L MCHC 32.8 RDW 17.2 H Plt Count 248 Neut % (Auto) 58.0 Lymph % (Auto) 33.1 Creek % (Auto) 6.9 Eos % (Auto) 1.5 L Baso % (Auto) 0.5 Neut # (Auto) 4400 Lymph # (Auto) 2500 Creek # (Auto) 500 Eos # (Auto) 100 Baso # (Auto) 0 PT 11.8 INR 1.0 APTT 33 Sodium 130 L Potassium 4.2 Chloride 97 L Carbon Dioxide 23 BUN 21 H Creatinine 1.54 H Estimated GFR 34 L BUN/Creatinine Ratio 13.6 Glucose 121 H Calcium 9.0 Total Bilirubin 0.3 AST 25 ALT 17 Alkaline Phosphatase 84 Total Creatine Kinase 45 CK-MB (CK-2) TNP CK-MB (CK-2) Rel Index TNP Troponin I 0.040 H Total Protein 7.6 Albumin 4.3 Globulin 3.3 Albumin/Globulin Ratio 1.3 SARS-CoV-2 (PCR) 02/28/22 12:47 WBC RBC Hgb Hct MCV MCH MCHC RDW Plt Count Neut % (Auto) Lymph % (Auto) Creek % (Auto) Eos % (Auto) Baso % (Auto) Neut # (Auto) Lymph # (Auto) Creek # (Auto) Eos # (Auto) Baso # (Auto) PT INR APTT Sodium Potassium Chloride Carbon Dioxide BUN Creatinine Estimated GFR BUN/Creatinine Ratio Glucose Calcium Total Bilirubin AST ALT Alkaline Phosphatase Total Creatine Kinase CK-MB (CK-2) CK-MB (CK-2) Rel Index Troponin I Total Protein Albumin Globulin Albumin/Globulin Ratio SARS-CoV-2 (PCR) Negative Assessment & Plan Assessment & Plan narrative: This is an 81 year old female with PMH of prior CVA, CAD with recent stenting on 02/25/22 at [facility], presents with word finding difficulties and right arm weakness that started this morning at approximately 10:30 a.m. MRI does show confirmatory acute infarct. She is admitted for further management of an acute CVA. 1. Acute CVA, present on admission - continue asa, plavix and statin. Replace home statin here with atorvastatin. - NIH 2 on admission exam for speech and vision. - allow for permissive hypertension, restart home meds tomorrow AM - treat for SBP > 180 with prn antihypertensive. - PT / OT / speech evaluations ordered - echo in 2019 showed no evidence of intraatrial shunt, EF was normal with a relaxation abnormality of the left ventricle. 2. Coronary artery disease with very recent stenting - continue asa/ plavix - continue statin - continue home beta lorin 3. Hypertension - hold home medications as noted in problem one. Okay to resume in AM. 4. GERD - continue PPI 5. Hypothyroidism - continue home levothyroxine - check tsh 6. Elevated troponin - possible elevated secondary to recent LHC or possibly from myocardial injury in setting of CVA - EKG reassuring, patient without chest pain, diaphoresis, nausea. - will check 8 hour follow up. continue to trend until down-trending. Code: Full, as discussed with the patient. Her surrogate decision maker she states is her spouse. Dispo: Admitted under inpatient status as her stay is expected to exceed 2 midnights. Suspect that she will likely discharge home depending on PT, OT and speech therapy evaluations. DVT: Lovenox daily I have utilized all available immediate resources to obtain, update, or review the patient's current medications. COVID-19 COVID-19 status: Negative Time Spent With Patient Critical Care time: I spent a total of [] minutes of critical care time on this patient's care today; this time is exclusive of procedural time. Scores NIHSS Level of Conciousness: Alert, keenly responsive Ask month/age: Answers both questions correctly. Open/close eyes, close hand: Performs both tasks correctly Best gaze horizontal: Normal Visual kaye: Partial hemianopia Facial palsy: Normal symetrical movement Left arm drift: No drift for full 10 sec Right arm drift: No drift for full 10 sec Left leg drift: No drift for full 5 sec Right leg drift: No drift for full 5 sec Limb ataxia: Absent Sensory on face/arms/legs: Normal, no sensory loss Best language: Mild to moderate, slurs some words Dysarthria: Normal Extinction or inattention: No abnormality Total NIH Stroke scale score: 2 Quality VTE Deep Vein Thrombosis/Pulmonary Embolism Present on Admission: No
[2022-02-28] MEDS: BUTALB/APAP/CAFFEINE 50/325/40 TABLET 1 EACH PO ×2 (16:33→22:05)
--- NOTE | 2022-02-28 18:17 | PC.NURSE ---
Day shift - I reported to Dr. Romero that Pt reported crampy pain, and warmth in bilateral calves. I told him I noted no swelling. Dr. romero gave no new orders.
[2022-02-28] MEDS: ONDANSETRON 4 MG ODT PO (20:08)
[2022-02-28] MEDS: ATORVASTATIN 20 MG TABLET 80 MG PO (20:08)
[2022-02-28 20:13] LABS: Troponin I 0.036 ng/mL (0.01-0.034)
[2022-02-28] MEDS: MELATONIN 3 MG TABLET PO (21:30)
--- NOTE | 2022-02-28 23:48 | PC.NURSE ---
At approx 1930, pt reports chest pain- 5/10, substernal, radiating towards back, feeling heavy. Reports associated nausea and mild SOB. Denies any numbness or tingling, any additional visual changes, headache, or dizziness. NIHSS score 2 for prior-standing vision issues and difficulty word finding, unchanged from prior NIHSS. Placed on 2L NC for comfort. Called hospitalist, ordered stat EKG and troponin draw. Gave patient 4 mg SL zofran for nausea. Pt later reported reduction of SOB, chest pain, and nausea, but reported increase in headache, focused behind eyes, throbbing, 5/10. Gave fioricet at approx 2200. Approx 1 hour later pt reports no relief in headache 5/10. Contacted provider, requested additional pain medication as well as an additional sleep aid, no orders as of writing this note.
[2022-03-01] VITALS (7 sets, daily range): BP systolic 123–144; BP diastolic 47–59; PULSE 60–65; RESP 16–18; TEMP 36.1–36.4; O2SAT 96–98
[2022-03-01] MEDS: diphenhydrAMINE 25 MG TABLET PO (00:09)
[2022-03-01] MEDS: TRAMADOL 50 MG TABLET PO (00:09)
--- NOTE | 2022-03-01 03:06 | DI.CT.S_ITS ---
PROCEDURE: CT STROKE INDICATIONS: continued headaches s/p left parietal infarct TECHNIQUE: Noncontrast 4.5 mm thick angled axial sections acquired from the foramen magnum to the vertex, with coronal reformats. For radiation dose reduction, the following was used: automated exposure control, adjustment of mA and/or kV according to patient size. COMPARISON: [facility], MR, MR HEAD/BRAIN WO/W CON, 02/28/2022, 13:08. [facility], CT, CT STROKE, 02/28/2022, 11:49. [facility], CT, CT ANGIO HEAD AND NECK, 02/28/2022, 11:49. FINDINGS: Image quality: Excellent. CSF spaces: Basal cisterns are patent. No extra-axial fluid collections. The ventricles are symmetric in size and shape. Brain: No intracranial bleeds or masses. There is cerebral volume loss for age, with resultant ventricular and sulcal prominence. There are periventricular and deep white matter chronic small vessel ischemic changes. There is intracranial internal carotid artery atherosclerosis. Skull and face: Calvarium and visualized facial bones appear intact, without suspicious lesions. Sinuses: Visualized sinuses and mastoids are clear. IMPRESSION: No acute intracranial disease process. This study fulfills neurological imaging criteria for inclusion or exclusion of acute stroke therapies based on available published neurological guidelines. Dictated by: Meggan Ricketts MD, PhD on 03/01/2022 at 7:14 Approved by: Meggan Ricketts MD, PhD on 03/01/2022 at 7:16
[2022-03-01] MEDS: SUMAtriptan 25 MG TABLET PO ×3 (04:10→12:05)
[2022-03-01 07:09] LABS: BUN Creatinine Ratio 13.9 (6-22); Blood Urea Nitrogen 20 mg/dL (7-17); Calcium 9.1 mg/dL (8.4-10.2); Carbon Dioxide 26 mmol/L (22-32); Chloride 98 mmol/L (98-107); Estimated Glomerular Filt Rate 37 mL/min (>60); Glucose 95 mg/dL (80-110); HEMOLYSIS < 15 (0-50); Magnesium 1.8 mg/dL (1.6-2.3); Potassium 4.5 mmol/L (3.4-5.1); Sodium 130 mmol/L (137-145)
[2022-03-01 07:11] LABS: Add Manual Diff / Slide Review NO; Basophils Absolute Auto 0 /uL (0-100); Basophils Percent Auto 0.5 % (0-2); Eosinophils Absolute Auto 100 /uL (0-450); Eosinophils Percent Auto 1.3 % (2-4); Hematocrit 27.9 % (36-46); Hemoglobin 9.2 g/dL (12.0-16.0); Lymphocytes Absolute Auto 1700 /uL (1100-4500); Lymphocytes Percent Auto 27.1 % (25-40); Mean Corpuscular HGB Conc 33.1 % (30-36); Mean Corpuscular Hemoglobin 25.4 PG (26-34); Mean Corpuscular Volume 76.9 fL (80-100); Monocytes Absolute Auto 400 /uL (0-900); Monocytes Percent Auto 6.9 % (3-14); Neutrophils Absolute Auto 4000 /uL (1500-7000); Neutrophils Percent Auto 64.2 % (50-75); Platelet Count 230 X10^3/uL (150-400); Red Blood Cell Count 3.63 X10^6/uL (4.0-5.2); Red Cell Distribution Width 16.9 % (11.6-14.8); White Blood Cell Count 6.3 X10^3/uL (4.5-11.0)
[2022-03-01 07:27] LABS: Hemoglobin A1C% w Est Avg Glu 6.7 % (4.0-6.0)
[2022-03-01 07:38] LABS: TSH w/ Reflex to FT4 2.51 uIU/mL (0.47-4.68)
[2022-03-01] MEDS: ENOXAPARIN 30 MG/0.3 ML SYRINGE SUBCUT (08:13)
[2022-03-01] MEDS: ASPIRIN EC 81 MG TABLET PO (08:13)
[2022-03-01] MEDS: CLOPIDOGREL 75 MG TABLET PO (08:13)
[2022-03-01] MEDS: BUTALB/APAP/CAFFEINE 50/325/40 TABLET 1 EACH PO (08:49)
[2022-03-01] MEDS: ACETAMINOPHEN 325 MG TABLET 975 MG PO (09:34)
--- NOTE | 2022-03-01 09:55 | OT.IP.EVAL ---
Current Diagnoses Cerebral infarction, unspecified (02/28/22) Past Medical History (Last Reviewed 02/28/22 @ 16:26 by Angelo Romero DO) CVA (cerebral vascular accident) H/O cardiac catheterization Obstructive sleep apnea Personality change Presbyacusia Vaginal melanoma Word finding difficulty Surgical History (Last Reviewed 02/28/22 @ 16:26 by Angelo Romero DO) H/O cardiac catheterization Occupational Therapy Inpatient Evaluation/Re-Eval M1 PT/OT-IP Prior Functional Status Start: 02/28/22 16:36 Freq: NEEDED Status: Active Protocol: Document 03/01/22 12:07 [facility] (Rec: 03/01/22 12:35 [facility] [id number]) Medical Review Prior Functional Status Medical History Reviewed Yes Communication able to make needs known Mobility and Gait pt stated that she is independent with all mobilities and ambulation without AD Activities of Daily Living and IADL's Pt states prior able to do all ADL's, IADL's and that her son assisted with finances and put her pills in an organizer for her. Social History Household Members children Living Arrangements House Number of Floors (Floors) One Floor Number of Stairs To Enter/Railing? NO steps to enter the house. Pt's son lives in back of the house. Home Environment Standard Height Toilet,Tub/ Shower Home Equipment Four Wheel Walker,Shower Seat without Backrest,Grab Bars In Shower M2 OT-IP Current Condition Start: 03/01/22 12:01 Freq: Status: Active Protocol: Document 03/01/22 12:07 [facility] (Rec: 03/01/22 12:35 [facility] [id number]) Occupational Therapy Current Condition Current Condition Evaluation Date 03/01/22 Treatment Diagnosis CVA, left partietal M3 OT- IP Subjective and Pain Start: 03/01/22 12:01 Freq: Status: Active Protocol: Document 03/01/22 12:07 [facility] (Rec: 03/01/22 12:35 [facility] [id number]) OT- Subjective Occupational Therapy Visit Type Type Initial Evaluation Visit Start Time 08:57 Visit Stop Time 09:55 Total Visit Minutes 58 Occupational Therapy Visit Comments Patient Comments Pt agreed to do OT eval. Patient/Caregiver Goals TO go home. OT Pain Assessment Pain When Pain Assessed At Rest Pain Present Pain Present Pain Reported Location head Intensity 6 Scale Used Numeric (0 - 10) M4 OT- IP ADL's Start: 03/01/22 12:01 Freq: Status: Active Protocol: Document 03/01/22 12:07 [facility] (Rec: 03/01/22 12:35 [facility] [id number]) OT [id number] Comments OT Self-Feeding Comments NOt at meal time. OT ADL-Grooming General Evaluation Grooming Ability Standby Assistance Areas Needing Assistance Retrieving/Set-up of Grooming Items Comments OT Grooming Comments Pt able to stand at the sink for grooming needs. OT ADL-Oral Care General Eval Oral Care Ability Standby Assistance Comments Oral Care Comments VC for orientation of the toothbrush as initially had the bristles facing out. OT ADL-Dressing Comments OT Dressing Comments not performed OT ADL-Toileting Comments OT Toileting Comments Pt able to get in and out of the bathroom on her own. Pt states self-caths herself but has been having trouble to do lately and then per pt able to urinate on her own. Notified nursing of pt's difficulty for self -cath and asked whether she is able really empty her bladder out or would be benefit from a bladder scan. pt insistent that she is fine. OT ADL-Bathing Comments OT Bathing Comments Pt wanting to shower at home. M5 OT- IP IADL's Start: 03/01/22 12:01 Freq: Status: Active Protocol: Document 03/01/22 12:07 [facility] (Rec: 03/01/22 12:35 [facility] [id number]) OT-Instrumental Activities of Daily Living Home Safety Awareness Awareness of Need for Assistance at Home Decreased Awareness Ability to Problem Solve Emergency Unable to Problem Solve Situations Home Safety Comments Pt has a very supportive son who will be home to [facility] with all her needs. Medication Management Medication Management Caregiver Administers Money Management Money Management Caregiver Provides Assistance Meal Preparation Meal Preparation Caregiver Provides Assist Marketing Performance Analyst Marketing Performance Analyst Caregiver Provides Assist Driving Driving Concerns Identified Regarding Safety M6 OT- IP Functional Cognition Start: 03/01/22 12:01 Freq: Status: Active Protocol: Document 03/01/22 12:07 [facility] (Rec: 03/01/22 12:35 [facility] [id number]) Cognitive Factors Limiting Selfcare Function Cognitive Ability Level of Alertness Alert,Confusional State Patient Orientation Name Attention Span Ability Capable of Focused Attention, Unable to Sustain Attention Ability to Follow Commands Able to Follow One Step Commands with Increased Time, Able to Follow One Step Commands with Repetition Memory Description Short Term Impaired,Working Impaired Safety Awareness Underestimates Need for Assistance Problem Solving Ability Unable to Identify Errors, Needs Assist to Identify Solutions Executive Function Ability Unable to Hold Focus,Unable to Switch Focus,Unable to Filter Distractions,Unable to Make Plans,Unable to Organize Plans ,Unable to Remember Details Cognitive Comments Cognitive Assessment Comments Pt having difficulty to follow directions and needing simple concrete cues to follow. Pt not able to figure out what 1 minute and 13 seconds equals in seconds and kept thinking that there are 30 seconds in a minute. Had to write down step by steps and pt still having trouble to add numbers and needing MAX A. Pt at times having word finding difficulties and insists she is fine but however frustrated and just wanting to get the OT assessment done. Pt also having a head ache and did not sleep well which may also contribute to her confusion and decreased functional cognition at this time. In addition pt did not have her reading glasses on and states that the numbers were blurry at times. Pt trying to write with the pen turned outside down and not able to figure out why if was not working even after it being pointed out to her. OT- Vision and Hearing OT- Hearing Assessment OT- Hearing Assessment WFL OT- Vision Assessment Visual Acuity Glasses For Reading Visual Attentiveness WFL Occular Pursuits Impaired Horizontal Visual Whiteside Impaired Vision Assessment Comments Right peripheral vision inconsistent and at times her eyes do not smoothly track together. It is suggested best for pt to get her eye check by a specialist. M7 OT- IP Mobility and Balance Start: 03/01/22 12:01 Freq: Status: Active Protocol: Document 03/01/22 12:07 [facility] (Rec: 03/01/22 12:35 [facility] [id number]) OT- Bed Mobility Assessment Supine to Sit Supine to Sit Assist Standby Assistance Sit to Supine Sit to Supine Assist Standby Assistance OT-Transfer Assessment Sit to and From Stand Sit to and from Stand Standby Assistance Transfers Transfer Ability Standby Assistance Technique Transfer Destination Bed,Toilet Transfer Technique Stand Step Pivot Devices Transfer Assistive Devices Gait Belt Comments Mobility Comments close SBA without a device and at times pt reaches out to surfaces for touch for balance . Pt feels that she is at her baseline for mobility needs. OT- Balance Assessment Sitting Balance and Reactions Static Sitting Balance Ability Good Dynamic Sitting Balance Ability Good Standing Balance and Reactions Static Standing Balance Ability Good Dynamic Standing Balance Ability Fair M8 OT- IP Objective Assessments Start: 03/01/22 12:01 Freq: Status: Active Protocol: Document 03/01/22 12:07 [facility] (Rec: 03/01/22 12:35 [facility] [id number]) OT Gross Range of Motion Upper Extremity Range of Motion Assessment Within Functional Limits OT- Coordination Assessment Comments Coordination Comments Decrease coordination in her hands due to arthritis and apraxia OT-Muscle Tone Assessment Muscle Tone WNL Yes OT Sensation Assessment Comments Summary Comments Pt decreased spatial awareness for RUE. M9 OT- IP Assessment and Plan Start: 03/01/22 12:01 Freq: Status: Active Protocol: Document 03/01/22 12:07 [facility] (Rec: 03/01/22 12:35 [facility] [id number]) OT Summary Assessment and Plan Potential Rehabilitation Potential Good Analytic Complexity at Evaluation Moderate Summary OT Impairments Pain,Balance,Coordination, Sensation,Functional Cognition ,Functional Mobility,Grooming, Dressing,Toileting,Bathing, Toilet Transfers,Shower Transfers,Activity Tolerance Progress Towards Goals Slow Progress due to Medical Issues,Slow Progress due to Cognition Assessment Summary Pt MOD complexity and main barriers are her CVA resulting in decreased functional cognition especially with word finding at times, trouble with visual focus, difficulty with motor planning in her hands, dyscalculia, decreased spatial orientation, and would now benefit from 24/7 assist and outpt BOSOM PRESSER and OT services. Goals Self-Feeding Goal Independent Grooming Goal Independent Dressing Goal Independent Toileting Goal Independent Bathing Goal Independent Toilet Transfer Goal Independent Shower Transfer Goal Independent Days to Meet Goals 25 Frequency of Treatment Frequency Of Treatment Once a Day Treatment Plan OT Treatment Plan ADL Training,Functional Cognition Training,Functional Mobility,Patient/Family Education,Discharge Planning Other Treatment Recommendations and Next shower Treatment Focus Discharge Recommendations OT Discharge Recommendations Home with 24/7 Assist Available,Outpatient PT Transportation Needs at Discharge Private Vehicle
[2022-03-01] MEDS: METOPROLOL IR 50 MG TABLET PO (10:29)
--- NOTE | 2022-03-01 10:52 | CM.DANOTE ---
Initial DCP Assessment Note Pt is an 81 yo female, resident of [place], arrives as code stroke; CVA confirmed via MRI and patient admitted for further management of an acute CVA. PMH includes CAD with recent heart stent placement PCP: Josh Feliciano Payer: [employer] Reviewed chart, pt discussed in multidisciplinary rounds this morning. Therapy has cleared pt for return home w/family to assist and pt has planned for home, Dr Mullins anticipates patient will be medically cleared for DC today Met w/patient and son Ronald this morning, introduced role. Patient admits she still has a headache. Brief visit, as son Ronald explains he has questions for the doctor and awaiting his arrival. Patient is indp and active at baseline, lives on the property with son and son available to assist as needed. 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 VIELKA Jacob Discharge Planning/Care Management CM Discharge Assessment Start: 03/01/22 10:49 Freq: Status: Active Protocol: Document 03/01/22 10:49 [facility] (Rec: 03/01/22 10:52 [facility] [id number]) Discharge Planning Assessment Assigned Art Department Head VIELKA Richter DPOA/Assigned Designee Name [email or web address] Maurer Contact Information [phone] Advance Directives? Yes Advance Directives on File No History Provided By Patient,Family Member,Medical Record Prior Living Arrangements House Household Members children Type of transporation used prior to Drives own vehicle admit Comment Son states family will now be providing transport Independent with ADL's Yes Is patient alert and oriented? Yes Patient/Family Preference OP PT Therapy Barriers to Discharge No Comment Home w/family, patient would like to return home today Discharge Plan Home Transportation Arrangement Family Referrals Initiated None needed
--- NOTE | 2022-03-01 11:45 | PT.IPTN ---
Current Diagnoses Cerebral infarction, unspecified (02/28/22) Physical Therapy Treatment Note M2 PT-IP Current Condition Start: 02/28/22 16:36 Freq: NEEDED Status: Active Protocol: Document 02/28/22 16:01 [facility] (Rec: 02/28/22 16:54 AB [id number]) Physical Therapy Current Condition Current Condition Evaluation Date 02/28/22 Treatment Diagnosis L CVA; difficulty in walking Onset Date 02/28/22 M3 PT-IP Subjective Start: 02/28/22 16:36 Freq: NEEDED Status: Active Protocol: Document 03/01/22 11:45 [facility] (Rec: 03/01/22 12:17 [facility] [id number]) Subjective Physical Therapy Visit Type Type Treatment Note Visit Start Time 11:45 Visit Stop Time 12:00 Total Visit Minutes 15 Number of DEICER REPAIRER Visits 0 Physical Therapy Visit Comments Patient Comments agreeable to do PT Therapy Pain Assessment Pain When Pain Assessed At Rest Pain Present Pain Present Pain Reported Location head Intensity 5 Scale Used Numeric (0 - 10) Pain Management Techniques Modification of Treatment, Timing of Activity with Medications M4 PT-IP Mobility and Gait Start: 02/28/22 16:36 Freq: NEEDED Status: Active Protocol: Document 03/01/22 11:45 [facility] (Rec: 03/01/22 12:17 AB [id number]) PT-Bed Mobility Assessment Supine to Sit Supine to Sit Independent Sit to Supine Sit to Supine Independent PT-Transfer Assessment Sit to and From Stand Sit to and from Stand Independent Equipment Transfer Assistive Device None Comments Mobility Comments completed supine to sit independent and ambulated in room without AD mod A. requested to go back to bed and completed sit to supine independent. pt continues to c/o a headache affecting mobility. informed pt regarding PT and agreed that no PT needs indicated at this time. Gait Assessment Gait Gait Assistance Required: Independent Distance (Feet) 50 Able to Maintain Weight Bearing Status Yes During Gait Assistive Devices Assistive Device None Orthotic/Prosthetic Devices or Brace: No Gait Deviations General Gait Pattern Decreased Stride Length, Decreased Feet Clearance Factors Limiting Gait Function Factors Limiting Gait Function Decreased Activity Tolerance, Pain,Poor Balance M5 PT-IP Objective Assessments Start: 02/28/22 16:36 Freq: NEEDED Status: Active Protocol: Document 02/28/22 16:01 AB (Rec: 02/28/22 16:54 AB [id number]) Orientation Orientation/Cognition Level of Alertness Alert Orientation Name,Age,Birthday,Month,Date, Year,Day of Week,Place, Situation Language Function Ability No Deficits Noted Safety Awareness Understands Safety Issues Memory Description No Deficits Noted Gross Range of Motion Lower Extremity ROM Assessment Within Functional Limits Strength Lower Extremity Strength Assessment Within Functional Limits Coordination Assessment Gross Coordination Gross Coordination WNL Sensation Assessment Sensation Gross Sensation WNL Muscle Tone Muscle Tone WNL Yes M6 PT-IP Treatment Start: 02/28/22 16:36 Freq: NEEDED Status: Active Protocol: Document 03/01/22 11:45 [facility] (Rec: 03/01/22 12:17 AB [id number]) Physical Therapy Treatment Education Education Provided Safety M7 PT-IP Assessment and Plan Start: 02/28/22 16:36 Freq: NEEDED Status: Active Protocol: Document 03/01/22 11:45 [facility] (Rec: 03/01/22 12:17 [facility] [id number]) PT Summary Assessment and Plan Potential Rehabilitation Potential Good Summary Assessment Summary pt doing well with mobility and is modified independent without AD. pt's son will be able to assist pt at home. No further PT intervention indicated at this time. Frequency of Treatment Frequency Of Treatment Discharge Recommendations To Nursing Amount of Assist Needed Standby Assistance Discharge Recommendations PT Discharge Recommendations Home with Assistance Transportation Needs at Discharge Private Vehicle
--- NOTE | 2022-03-01 14:10 | ST.IPSLE ---
Visit Care Team Role Provider Type Josh Feliciano MD Primary Care Provider Physician Specialty: Internal Medicine Address: [address] [place] [address], [address], [place], [address] Email: [email or web address] Lucia Chanel DO Emergency Provider Physician Referring Provider Specialty: Emergency Medicine Address: [address] [place] [address], [address] Email: [email or web address] Angelo Romero DO Admit Provider Physician Attending Provider Specialty: Internal Medicine Address: [address] [place] [address], [address] Email: [email or web address] Current Diagnoses Cerebral infarction, unspecified (02/28/22) Past Medical History (Last Reviewed 02/28/22 @ 16:26 by Angelo Romero DO) CVA (cerebral vascular accident) (Medical) H/O cardiac catheterization (Medical) Obstructive sleep apnea (Medical) Personality change (Medical) Presbyacusia (Medical) Vaginal melanoma (Medical) Word finding difficulty (Medical) Speech-Language Pathology Speech/Language Eval HAND MIXER Adult Cognitive Linguistic Eval Start: 03/01/22 13:59 Freq: Status: Active Protocol: Document 03/01/22 13:59 [facility] (Rec: 03/01/22 14:10 [facility] [id number]) Adult Cognitive Linguistic Evaluation Session Time Visit Start Time 12:30 Visit Stop Time 13:00 Total Visit Minutes 30 Setting Assessment Location Acute Care Visit Type Note Type Initial evaluation Next Note Type Next Note Type Treatment Note Patient Information Identification Type Name,Wristband Patient History Per H&P: 81 year old female with PMH of prior CVA, CAD with recent stenting on 02/25/[address] [facility], presents with word finding difficulties and right arm weakness that started this morning at approximately 10:30 a.m. patient states that since her left heart catheterization on Friday, she has been having intermittent headaches which are severe. She is mildly nauseous but has had no vomiting with these headaches. They had been doing better until it returned again this morning, at the same time she was about to eat breakfast and could not use her right hand, and was having a hard time speaking according to the . He noticed no lower extremity weakness, or facial droop. She denies any numbness, fevers, chills, palpitations. She states the right side of her vision is blurry or than the left, though it is slightly improving now. 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 MRI has already been performed and did show a left-sided acute infarct. Language(s) Spoken in the Home [place] Vision Vision Status Impaired Comments Right sided blurred vision Subjective Patient Report Pt reported difficulty with word finding, and reported improvement since yesterday. She stated word finding difficulty only occurs when she is reading, though added she had difficulty coming up with the word cactus when labeling pictures during this hospital stay. Difficulty with word finding when reading was described as words blurring together, making it challenging to identify the beginning and ends of words. Mental Status Alert,Responsive,Cooperative Assessment Oral Motor Examination Completed No Findings/Results Cognitive Function Mildly impaired Findings Trialed reading with a guide to separate words in an effort to reduce impact of blurry vision. Pt read sentences 1 word at a time and read an entire sentence without the guide. Reading was slowed, but WFL. Completed picture naming task and pt named 5/6 pictured items. She was unable to name the last item despite verbal and phonemic cues. Discussed strategies for improved word finding and pt indicated understanding of exercises. Pt scheduled to discharge home today and seek outpatient speech therapy for additional assistance with word finding difficulty. Cognitive Communication Deficits Self-awareness of Cognitive- Situational awareness ( Communication Deficits recognition of problem in context;in real time) Prognosis Prognosis Good Based on Cognitive status,Family support,Duration of symptoms/ severity,Time since onset Plan of Care Speech-Language Treatment Yes Patient/Caregiver Education Patient expressed agreement with goals and treatment plans ,Family/caregivers expressed agreement with goals and treatment plan,Patient requires further education/ training,Family/caregivers require further education/ training Discharge Recommendations Home,Outpatient therapy
--- NOTE | 2022-03-01 19:35 | P.DS_ITS ---
History of Present Illness History of Present Illness Date Patient Seen: 03/01/22 Chief complaint: Headaches/confusion/low motorfunction- heart cath Narrative: 81 year old female with PMH of prior CVA, CAD with recent stenting on 02/25/22 at [facility], presents with word finding difficulties and right arm weakness that started this morning at approximately 10:30 a.m. patient states that since her left heart catheterization on Friday, she has been having intermittent headaches which are severe.? She is mildly nauseous but has had no vomiting with these headaches.? They had been doing better until it returned again this morning, at the same time she was about to eat breakfast and could not use her right hand, and was having a hard time speaking according to the .? He noticed no low er extremity weakness, or facial droop.? She denies any numbness, fevers, chills, palpitations.? She states the right side of her vision is blurry or than the left, though it is slightly improving now.? She currently still has a headache but denies any nausea or vomiting.? She has had no abdominal pain, diarrhea, constipation, dysuria, or urinary frequency.? She denies any lower extremity edema or rash. In the emergency room, the patient was mildly hypertensive but the remainder of her vital signs are unremarkable.? Laboratory evaluation showed a stable anemia from her most recent labs with a hemoglobin of 9.8.? Coagulation studies were unremarkable.? Chemistries revealed a mild hyponatremia with a sodium of 130.? Creatinine was 1.54, her baseline is unknown.? Troponin was mildly elevated at 0.040.? Head CT performed in the emergency room showed no acute abnormalities, CT angiogram showed a possible pharyngeal mass, but no other acute intracranial anomalies.? MRI has already been performed and did show a left-sided acute infarct. Discharge Providers Provider Date of admission: 02/28/22 14:12 Discharge Date: 03/01/22 Primary care physician: Josh Feliciano MD Consults: 02/28/22 15:35 Consult to Physical Therapy Evaluate & Treat Comment: Physician Instructions: Evaluate and Treat 02/28/22 15:38 Consult to Occupational Therapy Evaluate & Treat Comment: Physician Instructions: Evaluate and treat Consult to Speech Therapy Evaluate & Treat Comment: Physician Instructions: Evaluate and treat Discharge provider: Boni Mullins MD Summary Hospital Course Discharge Diagnosis: 1. Acute left parietal ischemic CVA 2. Coronary artery disease status post recent stenting 3. 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 Chronic kidney disease stage III 5. Microcytic anemia unknown chronicity Hospital Course: As noted patient presented with headache, right hand weakness and aphasia. She was noted to have a right visual cut as well. The weakness has resolved. She still has mild aphasia and right visual field deficit. She was already on aspirin and Plavix from recent stent. Switched her pravastatin to atorvastatin. She will follow-up with outpatient therapy. Instructed not to drive. 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 She reports chronic problems with swallowing. Recommended to follow-up with ENT Dr. Crouch for direct visualization. Status at Discharge Cognitive/behavioral status at discharge: oriented Functional status at discharge: independent ambulation Overall status at discharge: patient is progressing back to baseline Exam Vital Signs (past 8 hours): - 03/01/22 14:00 Pulse Oximetry 96 Oxygen Delivery Method Room Air Oxygen Flow Rate 0 Narrative Exam Narrative: General: Alert NAD Neurological: Fully oriented, right visual field deficits noted, right upper extremity strength is back to normal, mild word-finding difficulties Objective Labs Result Diagrams: 03/01/22 06:28 03/01/22 06:28 Labs: Laboratory Results - last 24 hr 02/28/22 03/01/22 03/01/22 19:40 06:28 06:28 WBC RBC Hgb Hct MCV MCH MCHC RDW Plt Count Neut % (Auto) Lymph % (Auto) Craig % (Auto) Eos % (Auto) Baso % (Auto) Neut # (Auto) Lymph # (Auto) Craig # (Auto) Eos # (Auto) Baso # (Auto) Sodium Potassium Chloride Carbon Dioxide BUN Creatinine Estimated GFR BUN/Creatinine Ratio Glucose Hemoglobin A1c 6.7 H Calcium Magnesium Troponin I 0.036 H TSH 2.51 03/01/22 03/01/22 06:28 06:28 WBC 6.3 RBC 3.63 L Hgb 9.2 L Hct 27.9 L MCV 76.9 L MCH 25.4 L MCHC 33.1 RDW 16.9 H Plt Count 230 Neut % (Auto) 64.2 Lymph % (Auto) 27.1 Craig % (Auto) 6.9 Eos % (Auto) 1.3 L Baso % (Auto) 0.5 Neut # (Auto) 4000 Lymph # (Auto) 1700 Craig # (Auto) 400 Eos # (Auto) 100 Baso # (Auto) 0 Sodium 130 L Potassium 4.5 Chloride 98 Carbon Dioxide 26 BUN 20 H Creatinine 1.44 H Estimated GFR 37 L BUN/Creatinine Ratio 13.9 Glucose 95 Hemoglobin A1c Calcium 9.1 Magnesium 1.8 Troponin I [facility] Medical History CVA (cerebral vascular accident) Obstructive sleep apnea Personality change Presbyacusia Vaginal melanoma Word finding difficulty Surgical History H/O cardiac catheterization Family History (Updated 02/28/22 @ 16:26 by Angelo Romero DO) Father CVA (cerebral vascular accident) CAD (coronary artery disease) Mother Congestive heart failure Social History household members: children Smoking Status: Never smoker alcohol intake: current Discharge Plan Discharge Plan Patient Disposition: Home Provider Discharge Comment: You were diagnosed with left parietal ischemic stroke. Follow up with outpatient therapy. No driving. Neck CT showed a pharyngeal mass near the vocal cords. Follow up with Dr Crouch to get this looked at. Discharge orders & Medications Prescriptions: New atorvastatin 40 mg tablet 40 mg PO DAILY Qty: 30 0RF oxycodone 5 mg tablet 5 - 10 mg PO TID PRN (Reason: pain) Qty: 20 0RF Continued meclizine 25 mg tablet 25 mg PO DAILY PRN (Reason: dizziness or vertigo) Qty: 90 3RF levothyroxine 50 mcg capsule 50 mcg PO DAILY Qty: 90 1RF Rx Instructions: PT DUE FOR ANNUAL REVIEW PRIOR TO END OF 6 MONTH RX. PLEASE CALL TO [facility] ANK. 06/15/21 triamterene-hydrochlorothiazid 37.5-25 mg tablet 1 tab PO DAILY Qty: 90 3RF clopidogrel 75 mg tablet 75 mg PO DAILY Qty: 90 3RF metoprolol tartrate 50 mg tablet 50 mg PO DAILY Qty: 90 3RF pravastatin 20 mg tablet 20 mg PO BEDTIME Qty: 90 2RF allopurinol 100 mg tablet 100 mg PO DAILY Qty: 90 3RF cetirizine 10 mg tablet 10 mg PO DAILY PRN (Reason: allergy symptoms) 0RF aspirin [Adult Low Dose Aspirin] 81 mg tablet,delayed release (DR/EC) 81 mg PO DAILY 0RF Vitamin D + Calcium 1 tab PO DAILY 0RF Rx Instructions: Vitamin D = 1000 Calcium = 1200 ondansetron 4 mg tablet,disintegrating 4 mg PO Q8H PRN (Reason: nausea and vomiting) Qty: 14 5RF dimenhydrinate [Dramamine] 50 mg tablet 50 mg PO Q4-6H PRN (Reason: dizziness or vertigo) Qty: 30 11RF benzonatate 200 mg capsule 200 mg PO BEDTIME PRN (Reason: cough) Qty: 30 1RF Discontinued pantoprazole 40 mg tablet,delayed release (DR/EC) 40 mg PO DAILY Qty: 90 3RF Follow up/Referrals: Josh Feliciano MD [Primary Care Provider] - Brady Crouch MD [Physician] - None Diet/Activity/Treatments Diet: Regular Discharge Data Primary Care Provider: Josh Feliciano Quality VTE Deep Vein Thrombosis/Pulmonary Embolism Present on Admission: No
== END 2022-03-01 14:12 | disposition home or self-care (01) | DRG 66 ==
LOC: ED 13:00 → AC 14:24
PROVIDERS: Admitting Provider Internal Medicine; Emergency Provider Emergency Medicine; PCP Student in an Organized Health Care Education/Training Program; Referring Provider Emergency Medicine; Visit Provider Internal Medicine
DX: I63.9 Cerebral infarction, unspecified (principal); R47.01 Aphasia; H53.40 Unspecified visual field defects; R29.702 NIHSS score 2; I25.10 Atherosclerotic heart disease of native coronary artery without angina pectoris; K21.9 Gastro-esophageal reflux disease without esophagitis; E03.9 Hypothyroidism, unspecified; I12.9 Hypertensive chronic kidney disease with stage 1 through stage 4 chronic kidney disease, or unspecified chronic kidney disease; N18.30 Chronic kidney disease, stage 3 unspecified; G47.33 Obstructive sleep apnea (adult) (pediatric); R29.701 NIHSS score 1; Z95.5 Presence of coronary angioplasty implant and graft; Z20.822 Contact with and (suspected) exposure to COVID-19; Z79.01 Long term (current) use of anticoagulants
CPT/HCPCS: 36415; 70450; 70496; 70498; 70553; 80048; 80053; 82550; 82962; 83036; 83735; 84443; 84484; 85025; 85610; 85730; 87635; 92523; 93005; 93010; 94760; 97161; 97166; 97530; 99285; C9803; J1650

== ENCOUNTER → 2022-06-17 09:27 | Outpatient (CLI) | payer MEDICARE, OTHER, SELFPAY ==
[2022-02-28 14:41] VITALS: BMI 29.7
--- NOTE | 2022-06-17 | DI.US.S_ITS ---
PROCEDURE: US CAROTID DOPPLER BI INDICATIONS: TIA TECHNIQUE: Color and pulse Doppler interrogation was performed of both carotid systems, with image documentation and velocity measurements. on.. COMPARISON: Prior carotid duplex Doppler dated 08/07/2020 FINDINGS: Stenosis calculations are based on SRU (Society of Radiologists in Ultrasound) criteria. Right side: Brachial blood pressure: Not obtained Common carotid artery peak systolic velocity: 82 cm/sec. Internal carotid artery peak systolic velocity: 17 cm/sec. Internal carotid artery end diastolic velocity: 84 cm/sec. External carotid artery peak systolic velocity: 0.8 cm/sec. ICA/CCA peak systolic ratio: Mild scattered plaque. . Gallegos scale imaging description: Mild plaque. Percent internal carotid artery stenosis: Less than 50% . Vertebral artery: Flow direction is antegrade. Left side: Brachial blood pressure: 180/75 mm Hg. Common carotid artery peak systolic velocity: 103 cm/sec. Internal carotid artery peak systolic velocity: 101 cm/sec. Internal carotid artery end diastolic velocity: 20 cm/sec. External carotid artery peak systolic velocity: 71 cm/sec. ICA/CCA peak systolic ratio: 1.0 . Gallegos scale imaging description: Moderate plaque Percent internal carotid artery stenosis: Less than 50% . Vertebral artery: Flow direction is antegrade. IMPRESSION: Stable left than 50% bilateral internal carotid artery stenosis. Dictated by: Etienne ESPINOSA Interpreted: Henny Lehman MD on 06/17/2022 at 15:41 Transcribed by: ZION on 06/17/2022 at 15:44 Approved by: Henny Lehman M.D. on 06/17/2022 at 17:36
[2022-06-17 12:23] LABS: Cholesterol 108 mg/dL (140-199); HDL Cholesterol 32 mg/dL (40-60); LDL Cholesterol Calculated 35 mg/dL (<100); Triglycerides 207 mg/dL (35-150)
--- NOTE | 2022-06-17 12:45 | DI.ECHO.S_ITS ---
Interpretation Summary The ejection fraction is estimated to be 55-60%. Diastolic function is indeterminate. The right ventricle is normal in size and function. No significant valvular abnormalities. Unable to estimate PASP. Compared to the prior study dated 07/05/2020, no significant change. Procedure: A two-dimensional transthoracic echocardiogram with color flow and Doppler was performed. The study quality was technically adequate. Comparison is made with the echocardiogram of 07/05/2020. The patient was in sinus rhythm with heart rates between 60-75 bpm during the exam. Left Ventricle: The left ventricle is normal in size and wall thickness. The ejection fraction is estimated to be 55-60%. Diastolic function is indeterminate. Right Ventricle: The right ventricle is normal in size and function. Atria: The left atrial size is normal. Right atrial size is normal. There is no Doppler evidence for an interatrial shunt. Mitral Valve: The mitral valve leaflets appear borderline thickened, but open well. There is trace mitral regurgitation. Aortic Valve: The aortic valve is trileaflet. The aortic valve opens well. There is no aortic valve stenosis. There is trace aortic regurgitation. Tricuspid Valve: The tricuspid valve is normal in structure and function. There is trace tricuspid regurgitation. Pulmonic Valve: The pulmonic valve leaflets are thin and pliable; valve motion is normal. There is trace pulmonic regurgitation. Great Vessels: The aortic root is normal size. The dimensions of the ascending aorta are normal. The IVC is of normal diameter and collapses greater than 50% with a sniff. This suggests a low right atrial pressure of 3 mm Hg. Pericardium/ Pleura There is no pericardial effusion. There is no pleural effusion. MMode/2D Measurements & Calculations LVIDd: 4.5 cm LVOT diam: 2.0 cm LVIDs: 3.1 cm Ao root diam: 2.9 cm FS: 31.4 % asc Aorta Diam: 3.0 cm EPSS: 0.72 cm Ao Arch Diam (Prox Trans): 2.9 cm IVSd: 0.80 cm LVPWd: 0.84 cm LV slade. diameter/BSA (cm/m^2): 2.7 LV sys. diameter/BSA (cm/m^2): 1.9 LA A2 area: 16.7 cm2 RA long axis: 4.9 cm LA A4 area: 14.5 cm2 RA area: 12.6 cm2 LA length (vol): 5.2 cm RA vol: 27.2 ml LA vol: 39.1 ml RA : 16.6 ml/m2 LA vol index: 23.9 ml/m2 IVC diam: 1.2 cm RVD1 (basal): 2.6 cm RVD2 (mid): 2.3 cm TAPSE: 1.9 cm Doppler Measurements & Calculations Ao V2 max: 152.0 cm/sec LVOT Max Yusef: 106.6 cm/sec Ao V2 mean: 100.7 cm/sec LV V1 max P.5 mmHg Ao max P.2 mmHg LV V1 VTI: 22.4 cm Ao mean P.7 mmHg ROCAEL(I,D): 2.2 cm2 Ao V2 VTI: 30.6 cm ROCAEL(V,D): 2.1 cm2 sev ratio: 0.73 ROCAEL indexed to BSA (cm^2/m^2): 1.4 MV E max yusef: 76.8 cm/sec PA V2 max: 107.3 cm/sec MV A max yusef: 105.9 cm/sec PA V2 mean: 66.2 cm/sec MV E/A: 0.73 PA mean P.1 mmHg Med Peak E' Yusef: 4.7 cm/sec PA pr(Accel): 34.5 mmHg E/E' med: 16.2 Lat Peak E' Yusef: 6.3 cm/sec E/E' lat: 12.1 E/e' average: 14.2 MV dec time: 0.30 sec SV(LVOT): 68.3 ml Reading Physician:03:07 PM
== END ==
PROVIDERS: Family Provider Student in an Organized Health Care Education/Training Program; PCP Student in an Organized Health Care Education/Training Program; Referring Provider Internal Medicine Cardiovascular Disease; Visit Provider Internal Medicine Cardiovascular Disease
DX: I65.23 Occlusion and stenosis of bilateral carotid arteries (principal); R07.9 Chest pain, unspecified; E78.5 Hyperlipidemia, unspecified; M25.562 Pain in left knee; Z86.73 Personal history of transient ischemic attack (TIA), and cerebral infarction without residual deficits
CPT/HCPCS: 36415; 80061; 93306; 93880

== ENCOUNTER → 2022-06-27 16:16 | Outpatient (CLI) | payer MEDICARE, OTHER, SELFPAY ==
[2022-02-28 14:41] VITALS: BMI 29.7
[2022-06-27 17:43] LABS: Hematocrit 33.9 % (36-46); Hemoglobin 11.4 g/dL (12.0-16.0); Mean Corpuscular HGB Conc 33.7 % (30-36); Mean Corpuscular Hemoglobin 28.2 PG (26-34); Mean Corpuscular Volume 83.7 fL (80-100); Platelet Count 270 X10^3/uL (150-400); Red Blood Cell Count 4.05 X10^6/uL (4.0-5.2); Red Cell Distribution Width 16.6 % (11.6-14.8); White Blood Cell Count 8.8 X10^3/uL (4.5-11.0)
[2022-06-27 17:45] LABS: Reticulocyte Count, Percent 2.1 % (1.1-2.6)
[2022-06-27 18:01] LABS: HEMOLYSIS < 15 (0-50); Iron 39 ug/dL (37-170)
[2022-06-27 18:03] LABS: Lactate Dehydrogenase 317 U/L (313-618)
[2022-06-27 18:15] LABS: Percent Iron Saturation 12 % (15-50); Total Iron Binding Capacity 339 ug/dL (265-497); Transferrin 243 mg/dL (206-381)
[2022-06-27 18:39] LABS: Ferritin 34 ng/mL (11-264)
== END ==
PROVIDERS: Family Provider Student in an Organized Health Care Education/Training Program; PCP Student in an Organized Health Care Education/Training Program; Referring Provider Student in an Organized Health Care Education/Training Program; Visit Provider Student in an Organized Health Care Education/Training Program
DX: D50.9 Iron deficiency anemia, unspecified (principal); N18.32 Chronic kidney disease, stage 3b
CPT/HCPCS: 36415; 82728; 83540; 83550; 83615; 85027; 85045

== ENCOUNTER 2022-07-18 10:15 | Outpatient (RCR) | payer MEDICARE, OTHER, SELFPAY ==
[2022-02-28 14:41] VITALS: BMI 29.7
--- OUTSIDE RECORDS SUMMARY | 2022-04-11 10:42 | XMS_ITS | Referral Summary ---
:1940 Author Organization [address] [address] Care Team Providers Name Role Phone Josh Feliciano MD Primary Care Provider Reason for Referral (Routine) - Authorized Specialty Diagnoses / Procedures Referred By Contact Refer red To Contact Cardiac Rehabilitation Diagnoses Stented coronary artery Roxana Carty, [facility] [address] [place] [id number] Referral ID Status Reason Start Date Expiration Date Visits V isits Requested Authorized [id number] Authorized 04/01/2022 03/27/2023 1 1 Encounter Details Date Type Department Care Team Description 04/01/2022 Orders Only [facility] Asia Lott Stente d coronary Clinics Cardiology MATERIAL INSPECTOR artery (Primary Dx) [address], [address] [place] [phone] Allergies No known active allergiesdocumented as of this encounter (statuses as of 04/01/2022) Medications Medication Sig Dispensed Refills Start Date End Date Status allopurinol Take 100 mg by 0 Act laurel (ZYLOPRIM) 100 mg mouth daily tablet pantoprazole Take 40 mg by mouth 0 Active (PROTONIX) 40 mg EC daily tablet triamterene-hydrochlo Take 1 tablet by 0 04/24/2020 Active rothiazid mouth once daily (MAXZIDE-25) 37.5-25 mg acetaminophen-codeine 0 08/05/2019 Active (TYLENOL #3) 300-30 mg aspirin 81 mg EC Take by mouth 0 Active tablet cetirizine (ZyrTEC) 0 02/19/2019 Active 10 mg tablet colchicine 0.6 mg 0 11/24/2019 A ctive tablet diazePAM (VALIUM) 10 TAKE 1 2 TO 1 (ONE 0 06/01/2020 Active mg tablet HALF TO ONE) TABLET BY MOUTH EVERY 12 HOURS NEEDED FOR VERTIGO OR ANXIETY (NO DRIVING AFTER TAKING) fluticasone USE 1 SPRAY IN EACH 0 11/24/2019 Active propionate (FLONASE) NOSTRIL TWICE DAILY 50 mcg/actuation nasal spray levothyroxine TAKE 1 TABLET BY 0 04/19/2020 Active (SYNTHROID) 50 mcg MOUTH ONCE DAILY tablet EXCEPT SUNDAYS FOR THYROID REPLACEMENT clopidogreL (PLAVIX) Take 75 mg by mouth 0 2 Active 75 mg tablet daily calcium Take 1 tablet by 0 Act laurel citrate-vitamin D3 mouth daily 500 mg-12.5 mcg /5 gram powder metoprolol tartrate Take 50 mg by mouth 0 Active (LOPRESSOR) 50 mg daily tablet atorvastatin 0 03/01/2022 Active (LIPITOR) 40 mg tablet documented as of this encounter (statuses as of 04/01/2022) Active Problems No known active problemsdocumented as of this encounter (statuses as of 04/01/2022) Social History Tobacco Use Types Packs/Day Years Used Date Never Smoker Smokeless Tobacco: Never Used Alcohol Use Standard Drinks/Week Comments Never 0 (1 standard drink = 0.6 oz pure alcoho l) Alcohol Habits Answer Date Recorded How often do you have a drink containing alcohol? Never 06/27/2020 How many drinks containing alcohol do you have on a typical Not asked day when you are drinking? How often do you have six or more drinks on one occasion? No t asked Comment: Not asked Sex Assigned at Date Recorded Not on file Job Start Date Occupation Industry Not on file Not on file Not on file documented as of this encounter Plan of Treatment Upcoming Encounters Date Type Specialty Care Team Description 06/21/2022 Office Visit Cardiology Roxana Carty, [address] [place] [address] (Wo rk) Scheduled Referrals Name Type Priority Associated Order Schedule Diagnoses XTRNL Referral to Outpatient Referral Routine Stented coronary Ordered: Cardiac Rehabilitation artery 04/01 documented as of this encounter Medical Devices Implanted Type Area Inside Sales Executive Device Identifier Shelf Exp iration Model / Date Serial / L ot Stent Xience Skypoint 2.25*15 - [id number] [place] [id number] / Implanted: Qty: 1 on 02/25/2022 at [facility] / documented as of this encounter Visit Diagnoses Diagnosis Stented coronary artery - Primary Postsurgical percutaneous transluminal c oronary angioplasty status documented in this encounter Insurance Payer Benefit Plan / Subscriber ID Effective Dates Phone Addre ss Type Group MEDICARE MEDICARE PART [id number] 2006-Presen [phone] [address] [place] [address] SUPP FOR [id number] 2018-Prese [phone] [phone] [place] [address] documented as of this encounter Advance Directives Latest Code Status on File Code Status Date Activated Date Inactivated Comments Full Code 02/25/2022 4:05 PM 02/26/2022 2:38 AM Care Teams Senior Label Specialist Relationship Specialty Start Date End Date Josh Feliciano MD PCP - General Family Medicine 01/30/[address] [place] [id number] documented as of this encounter
== END 2022-07-18 15:15 ==
LOC: CAR 10:15
PROVIDERS: Family Provider Student in an Organized Health Care Education/Training Program; PCP Student in an Organized Health Care Education/Training Program; Referring Provider Internal Medicine Cardiovascular Disease; Visit Provider Internal Medicine Cardiovascular Disease
DX: Z95.5 Presence of coronary angioplasty implant and graft (principal)
CPT/HCPCS: 93798

== ENCOUNTER 2022-08-14 07:57 | Observation (INO) | payer MEDICARE, OTHER, SELFPAY ==
[2022-02-28 14:41] VITALS: BMI 29.7
[2022-08-14] VITALS (22 sets, daily range): BP systolic 113–172; BP diastolic 47–70; PULSE 53–68; RESP 16–48; TEMP 36.3–36.9; O2SAT 95–100; BMI 29.2
--- NOTE | 2022-08-14 08:10 | DI.RAD.S_ITS ---
PROCEDURE: XR CHEST 1V INDICATIONS: chest pain TECHNIQUE: One view of the chest was acquired. COMPARISON: None. FINDINGS: Surgical changes and devices: None. Lungs and pleura: Lungs are clear. No pleural effusions or pneumothorax. Mediastinum: Mediastinal contours appear normal. Heart size is mildly enlarged. Bones and chest wall: No suspicious bony lesions. Overlying soft tissues appear unremarkable. IMPRESSION: No acute pulmonary process. Dictated by: Consuelo Nieto M.D. on 08/14/2022 at 8:38 Approved by: Consuelo Nieto M.D. on 08/14/2022 at 8:38
--- NOTE | 2022-08-14 08:32 | ED.CHESTPAIN ---
HPI - Chest Pain General Chief Complaint: Chest Pain Stated Complaint: fatigue, chest pain, SOB Time Seen by Provider: 08/14/22 08:10 Source: patient and family Mode of arrival: Family Vehicle Limitations: no limitations History of Present Illness HPI narrative: Patient is a 81-year-old female with history of known coronary artery disease stent and CVA. She had a stent placed 02/25/2022 3 days later on February 28 she presented with a CVA and right-sided facets. She presents today with 3 days of ongoing shortness of breath with exertion fatigue and some mild chest discomfort. She says she feels like she has mostly recovered from her stroke rehab she took the initiative upon herself to do rehab herself because she could not get into stroke rehab. She says she did start going in [place] for the past couple of weeks and has been doing really well until 3 days ago. She denies any fever or chills. Her daughter in-law was diagnosed with COVID 1 month ago she has had all of her vaccines. She denies any abdominal pain nausea or vomiting or any other symptoms. Records report that she does have an occlusion LAD 80% from her previous heart catheterization in February 2022 Related Data Home Medications Medication Instructions Recorded Confirmed Vitamin D + Calcium 1 tab PO DAILY 08/01/21 08/14/22 aspirin 81 mg tablet,delayed 81 mg PO DAILY 08/01/21 08/14/22 release (Adult Low Dose Aspirin) metoprolol succinate 50 mg 50 mg PO DAILY 06/27/22 08/14/22 tablet,extended release 24 hr rosuvastatin 40 mg tablet 40 mg PO DAILY 06/27/22 08/14/22 Previous Rx's Medication Instructions Recorded triamterene 37.5 1 tab PO DAILY #90 tabs 10/13/21 mg-hydrochlorothiazide 25 mg tablet clopidogrel 75 mg tablet 75 mg PO DAILY #90 tabs 11/01/21 allopurinol 100 mg tablet 100 mg PO DAILY #90 tabs 02/01/22 pantoprazole 40 mg tablet,delayed 40 mg PO DAILY #14 tabs 07/09/22 release Allergies Allergy/AdvReac Type Severity Reaction Status Date / Time amoxicillin [From Augmentin] Allergy Intermediate nausea/vomi Verified 06/27/22 15:27 ting clavulanic acid Allergy Intermediate nausea/vomi Verified 06/27/22 15:27 [From Augmentin] ting Review of Systems Review of Systems Narrative: GENERAL: Denies chills, fatigue, malaise, fever, sweats, travel HEENT: Denies sinus pain, ear pain, sore throat, difficulty swallowing, neck pain RESPIRATORY: Denies dyspnea, cough, wheezing, hemoptysis, sputum. CARDIOVASCULAR: See HPI GASTROINTESTINAL: Denies nausea, vomiting, abdominal pain, diarrhea, constipation, melena. : Denies dysuria, frequency, incontinence, hematuria, urinary retention, flank pain. MUSCULOSKELETAL: Denies weakness, joint pain, or bony pain SKIN: No rash, no erythema, no pruritus NEUROLOGIC: Denies weakness, dizziness, headache, numbness, change in speech, confusion PSYCHIATRIC: No concerning psychosocial issues. 12 point review of systems is negative except for those stated above and HPI Patient History Medical History CVA (cerebral vascular accident) Obstructive sleep apnea Personality change Presbyacusia Vaginal melanoma Word finding difficulty Surgical History H/O cardiac catheterization Family History Father CVA (cerebral vascular accident) CAD (coronary artery disease) Mother Congestive heart failure Social History household members: children Smoking Status: Never smoker alcohol intake: current Smoking Status: Never smoker alcohol intake frequency: holidays/special occasions only Substance Use Type: does not use Exam Initial Vital Signs Initial Vital Signs: Vital Signs Temperature 98.2 F 08/14/22 08:12 Pulse Rate 63 08/14/22 08:12 Respiratory Rate 18 08/14/22 08:12 Blood Pressure 172/70 H 08/14/22 08:12 Pulse Oximetry 98 08/14/22 08:12 Oxygen Delivery Method 08/14/22 08:12 GENERAL: Alert pleasant 81-year-old female and in no acute distress. HEENT: Head atraumatic,EOMI, pupils reactive, face symmetric, moist mucous membranes CARDIOVASCULAR: Regular rate and rhythm without murmurs, rubs or gallops. RESPIRATORY: Breath sounds equal bilaterally, no wheezes rales or rhonchi. ABDOMEN: Soft, nontender. Normoactive bowel sounds all 4 quadrants. No guarding or rebound. EXTREMITIES: Normal range of motion, no clubbing or edema. Neurovascularly intact NEUROLOGICAL: Alert and oriented x4.Normal gait and speech. SKIN: Warm, dry, no laceration, no petechiae, no rashes or lesions. Course Orders Ordered: ED Orders 08/14/22 11:02 Trop I [Troponin I] Stat 08/14/22 11:20 COVID19 -Nasal RAPID/Pre-Proc Stat Allopurinol (Allopurinol 100 Mg Tablet) 100 mg PO DAILY [facility] Aspirin (Aspirin Ec 81 Mg Tablet) 81 mg PO DAILY [facility] Atorvastatin Calcium (Atorvastatin 20 Mg Tablet) 80 mg PO DAILY [facility] Benzonatate (Benzonatate 100 Mg Capsule) 200 mg PO BEDTIME PRN PRN Reason: cough Calcium Carbonate/Cholecalciferol (Calcium Carb/Vit D3 500/200 Tablet) 1 each PO DAILY [facility] Clopidogrel Bisulfate (Clopidogrel 75 Mg Tablet) 75 mg PO DAILY [facility] Colchicine (Colchicine 0.6 Mg Tablet) 0.6 mg PO DAILY [facility] Levothyroxine Sodium (Levothyroxine 50 Mcg Tablet) 50 mcg PO DAILY@0600 [facility] Loratadine (Loratadine 10 Mg Tablet) 10 mg PO DAILY PRN PRN Reason: allergy symptoms Meclizine HCl (Meclizine Hcl 12.5 Mg Tablet) 25 mg PO DAILY PRN PRN Reason: dizziness or vertigo Metoprolol Succinate (Metoprolol Er 50 Mg Tablet) 50 mg PO DAILY [facility] Dimenhydrinate [ (Dramamine] 50 Mg Tab) 50 mg PO Q4H PRN PRN Reason: dizziness or vertigo Ondansetron HCl (Ondansetron 4 Mg Odt) 4 mg PO Q8H PRN PRN Reason: nausea and vomiting Oxycodone HCl (Oxycodone Ir 5 Mg Tablet) 5 mg PO TID PRN PRN Reason: pain Last Admin: 08/14/22 16:24 Dose: 5 mg Documented By: Pantoprazole Sodium (Pantoprazole Dr 40 Mg Tablet) 40 mg PO DAILY [facility] Triamterene/Hydrochlorothiazide (Triamterene/Hctz 37.5/25 Capsule) 1 cap PO DAILY [facility] Discontinued Medications Aspirin (Aspirin 81 Mg Chew Tab) 324 mg PO NOW ONE Stop: 08/14/22 08:11 Last Admin: 08/14/22 08:40 Dose: 324 mg Documented By: GIBSON Vital Signs Vital signs: Vital Signs - 8 hr 08/14/22 11:30 08/14/22 11:30 08/14/22 11:45 Pulse Rate 53 L 55 L Respiratory Rate 18 19 Blood Pressure 137/63 Pulse Oximetry 99 97 08/14/22 11:45 08/14/22 12:00 08/14/22 12:00 Pulse Rate 56 L Respiratory Rate 18 Blood Pressure 125/60 126/60 Pulse Oximetry 97 08/14/22 12:15 08/14/22 12:15 08/14/22 12:30 Pulse Rate 55 L Respiratory Rate 17 Blood Pressure 125/58 L 122/61 Pulse Oximetry 96 08/14/22 12:30 08/14/22 12:45 08/14/22 12:45 Pulse Rate 62 61 Respiratory Rate 24 20 Blood Pressure 122/57 L Pulse Oximetry 98 99 MDM - Chest Pain Lab Data Result diagrams: 08/14/22 08:45 08/14/22 08:45 Labs: Lab Results 08/14/22 08/14/22 08/14/22 Range/Units 08:45 08:45 08:45 WBC 7.2 (4.5-11.0) X10^3/uL RBC 4.00 (4.0-5.2) X10^6/uL Hgb 11.6 L (12.0-16.0) g/dL Hct 34.9 L (36-46) % MCV 87.3 (80-100) fL MCH 29.0 (26-34) PG MCHC 33.2 (30-36) % RDW 16.3 H (11.6-14.8) % Plt Count 203 (150-400) X10^3/uL Neut % (Auto) 53.9 (50-75) % Lymph % (Auto) 35.2 (25-40) % [place] % (Auto) 8.4 (3-14) % Eos % (Auto) 1.8 L (2-4) % Baso % (Auto) 0.7 (0-2) % Neut # (Auto) 3900 (3084-2061) /uL Lymph # (Auto) 2500 (4446-4907) /uL [place] # (Auto) 600 (0-900) /uL Eos # (Auto) 100 (0-450) /uL Baso # (Auto) 0 (0-100) /uL Sodium 138 (137-145) mmol/L Potassium 3.6 (3.4-5.1) mmol/L Chloride 99 (98-107) mmol/L Carbon Dioxide 27 (22-32) mmol/L BUN 19 H (7-17) mg/dL Creatinine 1.70 H (0.52-1.04) mg/dL Estimated GFR 30 L (>60) mL/min BUN/Creatinine Ratio 11.2 (6-22) Glucose 143 H (80-110) mg/dL Calcium 9.3 (8.4-10.2) mg/dL Total Bilirubin 0.7 (0.2-1.3) mg/dL AST 26 (14-36) IU/L ALT 14 (<35) IU/L Alkaline Phosphatase 101 (38-126) U/L Total Creatine Kinase 52 (30-135) U/L CK-MB (CK-2) TNP CK-MB (CK-2) Rel Index TNP Troponin I < 0.012 (0.01-0.034) ng/mL NT-Pro-B Natriuret Pep 57 (<450) pg/mL Total Protein 7.6 (6.3-8.2) g/dL Albumin 4.2 (3.5-5.0) g/dL Globulin 3.4 (1.7-4.1) g/dL Albumin/Globulin Ratio 1.2 (1.0-2.8) Lipase 143 (23-300) U/L SARS-CoV-2 (PCR) (Negative) 08/14/22 08/14/22 Range/Units 11:02 11:20 WBC (4.5-11.0) X10^3/uL RBC (4.0-5.2) X10^6/uL Hgb (12.0-16.0) g/dL Hct (36-46) % MCV (80-100) fL MCH (26-34) PG MCHC (30-36) % RDW (11.6-14.8) % Plt Count (150-400) X10^3/uL Neut % (Auto) (50-75) % Lymph % (Auto) (25-40) % [place] % (Auto) (3-14) % Eos % (Auto) (2-4) % Baso % (Auto) (0-2) % Neut # (Auto) (5037-0727) /uL Lymph # (Auto) (3949-6605) /uL [place] # (Auto) (0-900) /uL Eos # (Auto) (0-450) /uL Baso # (Auto) (0-100) /uL Sodium (137-145) mmol/L Potassium (3.4-5.1) mmol/L Chloride (98-107) mmol/L Carbon Dioxide (22-32) mmol/L BUN (7-17) mg/dL Creatinine (0.52-1.04) mg/dL Estimated GFR (>60) mL/min BUN/Creatinine Ratio (6-22) Glucose (80-110) mg/dL Calcium (8.4-10.2) mg/dL Total Bilirubin (0.2-1.3) mg/dL AST (14-36) IU/L ALT (<35) IU/L Alkaline Phosphatase (38-126) U/L Total Creatine Kinase (30-135) U/L CK-MB (CK-2) CK-MB (CK-2) Rel Index Troponin I < 0.012 (0.01-0.034) ng/mL NT-Pro-B Natriuret Pep (<450) pg/mL Total Protein (6.3-8.2) g/dL Albumin (3.5-5.0) g/dL Globulin (1.7-4.1) g/dL Albumin/Globulin Ratio (1.0-2.8) Lipase (23-300) U/L SARS-CoV-2 (PCR) Negative (Negative) Imaging Data Chest x-ray: Radiologist's Impression: Molly brown MR#: [id number] : 1940 Acct:[id number] Age/Sex: 81 / F Date of Service: 08/14/22 Loc: Accession Number: [id number] ?? Procedure: XR chest 1V Ordering Provider: Lucia Chanel D.O. PROCEDURE:? XR CHEST 1V ? INDICATIONS:? chest pain ? TECHNIQUE:? One view of the chest was acquired.? ? COMPARISON:? None. ? FINDINGS:? ? Surgical changes and devices:? None.? ? Lungs and pleura:? Lungs are clear.? No pleural effusions or pneumothorax.? ? Mediastinum:? Mediastinal contours appear normal.? Heart size is mildly enlarged. ? Bones and chest wall:? No suspicious bony lesions.? Overlying soft tissues appear unremarkable.? ? IMPRESSION:? No acute pulmonary process. ? ? Dictated by: Consuelo Nieto M.D. on 08/14/2022 at 8:38 ? ? ECG Data Interpretation: Normal sinus rhythm rate 59 NE interval 208 QRS [address] changes T-wave inversion noted in V2--similar to prior MDM Narrative Medical decision making narrative: 81-year-old female has known coronary artery disease in LAD is a occlusion of 80% at remains not stented presenting today with chest discomfort with exertion for the last 3 days. Certainly sinus symptoms are concerning for or worsening occlusion she has 2- troponins and negative EKG. The pain is similar to her previous PA Dr. Wallace cardiology has been updated on patient's symptoms test resolve states that patient should be admitted for stress test if continuing to have symptoms. No need for transfer at this time for heart catheterization. Dr. Fernandes accepts patient Discharge Plan Departure Patient Disposition: Admitted as Observation Clinical Impression: Chest pain Admit Date/Time: 08/14/22 12:58 Admit Provider: Caro Trotter
--- NOTE | 2022-08-14 08:35 | PC.NURSE ---
C/O left side CP x 4days, pain varies 12/06 - 04/05. Hx of stent, hx of stroke, currently in cardiac rehab in [place]. Followed by Dr. Medina (sp) cardiology, Bk. States SOB, 98% on monitor. Son at the bedside. States she is feeling excessively tired, recently.
[2022-08-14] MEDS: ASPIRIN 81 MG CHEW TAB 324 MG PO (08:40)
[2022-08-14 09:11] LABS: Add Manual Diff / Slide Review NO; Basophils Absolute Auto 0 /uL (0-100); Basophils Percent Auto 0.7 % (0-2); Eosinophils Absolute Auto 100 /uL (0-450); Eosinophils Percent Auto 1.8 % (2-4); Hematocrit 34.9 % (36-46); Hemoglobin 11.6 g/dL (12.0-16.0); Lymphocytes Absolute Auto 2500 /uL (1100-4500); Lymphocytes Percent Auto 35.2 % (25-40); Mean Corpuscular HGB Conc 33.2 % (30-36); Mean Corpuscular Volume 87.3 fL (80-100); Monocytes Absolute Auto 600 /uL (0-900); Monocytes Percent Auto 8.4 % (3-14); Neutrophils Absolute Auto 3900 /uL (1500-7000); Neutrophils Percent Auto 53.9 % (50-75); Platelet Count 203 X10^3/uL (150-400); Red Cell Distribution Width 16.3 % (11.6-14.8); White Blood Cell Count 7.2 X10^3/uL (4.5-11.0)
[2022-08-14 09:23] LABS: Alanine Aminotransferase 14 IU/L (<35); Albumin 4.2 g/dL (3.5-5.0); Albumin Globulin Ratio 1.2 (1.0-2.8); Alkaline Phosphatase 101 U/L (38-126); Aspartate Aminotransferase 26 IU/L (14-36); BUN Creatinine Ratio 11.2 (6-22); Bilirubin Total 0.7 mg/dL (0.2-1.3); Blood Urea Nitrogen 19 mg/dL (7-17); Calcium 9.3 mg/dL (8.4-10.2); Carbon Dioxide 27 mmol/L (22-32); Chloride 99 mmol/L (98-107); Creatine Kinase 52 U/L (30-135); Estimated Glomerular Filt Rate 30 mL/min (>60); Globulin 3.4 g/dL (1.7-4.1); Glucose 143 mg/dL (80-110); HEMOLYSIS < 15 (0-50); Lipase 143 U/L (23-300); Potassium 3.6 mmol/L (3.4-5.1); Sodium 138 mmol/L (137-145); Total Protein 7.6 g/dL (6.3-8.2)
[2022-08-14 09:32] LABS: NT-proBNP (BNP-Adult 18+) 57 pg/mL (<450)
[2022-08-14 09:35] LABS: Troponin I < 0.012 ng/mL (0.01-0.034)
[2022-08-14 11:43] LABS: COVID19 -Nasal RAPID Negative (Negative)
[2022-08-14 12:01] LABS: Troponin I < 0.012 ng/mL (0.01-0.034)
[2022-08-14] MEDS: OXYCODONE IR 5 MG TABLET PO (16:24)
--- NOTE | 2022-08-14 17:56 | PC.NURSE ---
Day shift: Pt with no c/o of chest pain at this time. IV start attempted 8 times per ED RN report. Pt refuses to have another IV attempt at this time. Midline ordered by . ETA for midline placement from outside company is 4 hours from now (approx 2200). MD aware and lost charge card clerk aware as well.
--- NOTE | 2022-08-14 19:52 | P.HP_ITS ---
History of Present Illness History of Present Illness Date Patient Seen: 08/14/22 Chief complaint: fatigue, chest pain, SOB Narrative: Patient is a 81-year-old female with history of known coronary artery disease stent and CVA.? She had a stent placed 02/25/2022 3 days later on February 28 she presented with a CVA and right-sided facets.? She presents today with 3 days of ongoing shortness of breath with exertion fatigue and some mild chest discomfort.? She says she feels like she has mostly recovered from her stroke rehab she took the initiative upon herself to do rehab herself because she could not get into stroke rehab.? She says she did start going in [place] for the past couple of weeks and has been doing really well until 3 days ago.? She denies any fever or chills.? Her daughter in-law was diagnosed with COVID 1 month ago she has had all of her vaccines.? She denies any abdominal pain nausea or vomiting or any other symptoms. Records report that she does have an occlusion LAD 80% from her previous heart catheterization in February 2022. I saw the patient upstairs in the medical floor for full details. Patient describes her symptoms very well. Her chest pain started 3 days ago specifically associated with exertion. She describes she has onset of chest pain when she is trying to take the garage cans are doing the dishes and she had to stop to get some rest to relieve the chest pain. The chest pain is midsternal, 6/10, radiating to the back, sometimes to neck, relieves with rest, associated with some shortness of breath. Patient did not try nitro for this pain. She tried to get an appointment with the Cardiology but was requested to go to the ER for further evaluation. Patient denies any paroxysmal nocturnal dyspnea, pedal edema, orthopnea, palpitations. Denies any headaches, fevers, chills, cough. Patient History Medical History CVA (cerebral vascular accident) Obstructive sleep apnea Personality change Presbyacusia Vaginal melanoma Word finding difficulty Surgical History H/O cardiac catheterization Family & Social History Family History Father CVA (cerebral vascular accident) CAD (coronary artery disease) Mother Congestive heart failure Social History: household members children Prior Living Arrangements House Safety & Behavioral: Feels Safe in Current Yes Environment Been Physically Hurt or No Threatened By a Person Tobacco & Substance use: Smoking Status Never smoker alcohol intake current alcohol intake frequency holiday/special occasion Substance Use Type does not use Comment: Patient's son García is the primary millinery salesperson, lives with her. Meds Home Medications and Allergies Home Medications Medication Instructions Recorded Confirmed Type Vitamin D + Calcium 1 tab PO DAILY 08/01/21 08/14/22 History aspirin 81 mg tablet,delayed 81 mg PO DAILY 08/01/21 08/14/22 History release (Adult Low Dose Aspirin) triamterene 37.5 1 tab PO DAILY #90 tabs 10/13/21 08/14/22 Rx mg-hydrochlorothiazide 25 mg tablet clopidogrel 75 mg tablet 75 mg PO DAILY #90 tabs 11/01/21 08/14/22 Rx allopurinol 100 mg tablet 100 mg PO DAILY #90 tabs 02/01/22 08/14/22 Rx metoprolol succinate 50 mg 50 mg PO DAILY 06/27/22 08/14/22 History tablet,extended release 24 hr rosuvastatin 40 mg tablet 40 mg PO DAILY 06/27/22 08/14/22 History pantoprazole 40 mg tablet,delayed 40 mg PO DAILY #14 tabs 07/09/22 08/14/22 Rx release Allergies Allergy/AdvReac Type Severity Reaction Status Date / Time amoxicillin [From Augmentin] Allergy Intermediate nausea/vomi Verified 06/27/22 15:27 ting clavulanic acid Allergy Intermediate nausea/vomi Verified 06/27/22 15:27 [From Augmentin] ting Review of Systems Review of Systems Narrative: All other systems reviewed, negative other than as mentioned above in HPI. Exam Vital Signs (past 8 hours): - 08/14/22 12:00 08/14/22 12:00 08/14/22 12:15 Temperature Pulse Rate 56 L 55 L Respiratory Rate 18 17 Blood Pressure 126/60 Pulse Oximetry 97 96 Oxygen Delivery Method 08/14/22 12:15 08/14/22 12:30 08/14/22 12:30 Temperature Pulse Rate 62 Respiratory Rate 24 Blood Pressure 125/58 L 122/61 Pulse Oximetry 98 Oxygen Delivery Method 08/14/22 12:45 08/14/22 12:45 08/14/22 13:00 Temperature Pulse Rate 61 63 Respiratory Rate 20 16 Blood Pressure 122/57 L Pulse Oximetry 99 100 Oxygen Delivery Method 08/14/22 13:31 08/14/22 18:33 Temperature 98.5 F Pulse Rate 58 L 64 Respiratory Rate 20 16 Blood Pressure 132/61 128/51 L Pulse Oximetry 99 98 Oxygen Delivery Method Room Air Oxygen Delivery Method Room Air Narrative Exam Narrative: Pleasant elderly female lying comfortably in the bed, cardiovascular exam within normal limits. She does have a small ulceration of the left foot, healing, secondary to biopsy. Bilateral pitting pedal edema noted. Air entry of the lungs seems to be within normal limits. I did not appreciate any murmurs. Cardiovascular, constitutional, HEENT, respiratory, GI, , neuro, psych, skin exam within normal limits. Patient does have an ostomy of right lower quadrant for her urinary draining and she does intermittent catheter from there. Site looks clean. Objective Labs Result Diagrams: 08/14/22 08:45 08/14/22 08:45 Labs: Laboratory Results - last 24 hr 08/14/22 08/14/22 08/14/22 08:45 08:45 08:45 WBC 7.2 RBC 4.00 Hgb 11.6 L Hct 34.9 L MCV 87.3 MCH 29.0 MCHC 33.2 RDW 16.3 H Plt Count 203 Neut % (Auto) 53.9 Lymph % (Auto) 35.2 [place] % (Auto) 8.4 Eos % (Auto) 1.8 L Baso % (Auto) 0.7 Neut # (Auto) 3900 Lymph # (Auto) 2500 [place] # (Auto) 600 Eos # (Auto) 100 Baso # (Auto) 0 Sodium 138 Potassium 3.6 Chloride 99 Carbon Dioxide 27 BUN 19 H Creatinine 1.70 H Estimated GFR 30 L BUN/Creatinine Ratio 11.2 Glucose 143 H Calcium 9.3 Total Bilirubin 0.7 AST 26 ALT 14 Alkaline Phosphatase 101 Total Creatine Kinase 52 CK-MB (CK-2) TNP CK-MB (CK-2) Rel Index TNP Troponin I < 0.012 NT-Pro-B Natriuret Pep 57 Total Protein 7.6 Albumin 4.2 Globulin 3.4 Albumin/Globulin Ratio 1.2 Lipase 143 SARS-CoV-2 (PCR) 08/14/22 08/14/22 11:02 11:20 WBC RBC Hgb Hct MCV MCH MCHC RDW Plt Count Neut % (Auto) Lymph % (Auto) [place] % (Auto) Eos % (Auto) Baso % (Auto) Neut # (Auto) Lymph # (Auto) [place] # (Auto) Eos # (Auto) Baso # (Auto) Sodium Potassium Chloride Carbon Dioxide BUN Creatinine Estimated GFR BUN/Creatinine Ratio Glucose Calcium Total Bilirubin AST ALT Alkaline Phosphatase Total Creatine Kinase CK-MB (CK-2) CK-MB (CK-2) Rel Index Troponin I < 0.012 NT-Pro-B Natriuret Pep Total Protein Albumin Globulin Albumin/Globulin Ratio Lipase SARS-CoV-2 (PCR) Negative Assessment & Plan Assessment and plan (1) Chest pain: Status: Acute Assessment & Plan narrative: Exertional chest pain -patient initially admitted for further evaluation and possibly a stress test. I called [facility] cardiology group, discussed with Dr. Auguste regarding patient exertional chest pain -no stress test at this time, patient will be evaluated by Dr. Robert tomorrow morning for further recommendations. She will be on telemetry, continue home medications, troponin check in the morning and EKG Coronary artery disease status post stent -continue to monitor, continue antiplatelet therapy Benign essential hypertension -continue home medications DVT and GI prophylaxis reviewed, patient is full code, care plan extensively discussed with the patient and son Darryl on phone, answered all questions Follow up on Cardiology recommendations for further intervention. Time Spent With Patient Critical Care time: I spent a total of [] minutes of critical care time on this patient's care tod ay; this time is exclusive of procedural time. Quality VTE Deep Vein Thrombosis/Pulmonary Embolism Present on Admission: No
[2022-08-15 03:00] VITALS: BP 116/44; PULSE 60; RESP 18; TEMP 36.7; O2SAT 98
[2022-08-15 05:12] LABS: Add Manual Diff / Slide Review NO; Basophils Absolute Auto 0 /uL (0-100); Basophils Percent Auto 0.5 % (0-2); Eosinophils Absolute Auto 100 /uL (0-450); Eosinophils Percent Auto 1.2 % (2-4); Hematocrit 31.7 % (36-46); Hemoglobin 10.8 g/dL (12.0-16.0); Lymphocytes Absolute Auto 2600 /uL (1100-4500); Mean Corpuscular Hemoglobin 29.5 PG (26-34); Mean Corpuscular Volume 86.8 fL (80-100); Monocytes Absolute Auto 500 /uL (0-900); Monocytes Percent Auto 7.4 % (3-14); Neutrophils Absolute Auto 4000 /uL (1500-7000); Neutrophils Percent Auto 54.9 % (50-75); Platelet Count 189 X10^3/uL (150-400); Red Blood Cell Count 3.66 X10^6/uL (4.0-5.2); Red Cell Distribution Width 16.6 % (11.6-14.8); White Blood Cell Count 7.3 X10^3/uL (4.5-11.0)
[2022-08-15 05:36] LABS: Alanine Aminotransferase 17 IU/L (<35); Albumin 3.8 g/dL (3.5-5.0); Albumin Globulin Ratio 1.2 (1.0-2.8); Alkaline Phosphatase 88 U/L (38-126); Aspartate Aminotransferase 26 IU/L (14-36); Bilirubin Total 0.6 mg/dL (0.2-1.3); Blood Urea Nitrogen 22 mg/dL (7-17); Carbon Dioxide 27 mmol/L (22-32); Chloride 97 mmol/L (98-107); Estimated Glomerular Filt Rate 36 mL/min (>60); Globulin 3.2 g/dL (1.7-4.1); Glucose 122 mg/dL (80-110); HEMOLYSIS < 15 (0-50); Potassium 3.8 mmol/L (3.4-5.1); Sodium 136 mmol/L (137-145)
[2022-08-15 05:47] LABS: Troponin I < 0.012 ng/mL (0.01-0.034)
[2022-08-15] MEDS: LEVOTHYROXINE 50 MCG TABLET PO (06:23)
[2022-08-15] MEDS: ONDANSETRON 4 MG ODT PO (08:15)
[2022-08-15 08:43] VITALS: BP 134/47; PULSE 58; RESP 18; TEMP 36.6; O2SAT 94
[2022-08-15] MEDS: ASPIRIN EC 81 MG TABLET PO (08:46)
[2022-08-15] MEDS: ATORVASTATIN 20 MG TABLET 80 MG PO (08:46)
[2022-08-15] MEDS: PANTOPRAZOLE DR 40 MG TABLET PO (08:46)
[2022-08-15] MEDS: allopurinoL 100 MG TABLET PO (08:46)
[2022-08-15] MEDS: CLOPIDOGREL 75 MG TABLET PO (08:46)
[2022-08-15] MEDS: CALCIUM CARB/VIT D3 500/200 TABLET 1 EACH PO (08:46)
[2022-08-15 08:47] VITALS: BP 134/47; PULSE 60
--- NOTE | 2022-08-15 10:16 | P.PN_ITS ---
Subjective Subjective Interval history: Patient is a 81-year-old female with history of known coronary artery disease stent and CVA.? She had a stent placed 02/25/2022 3 days later on February 28 she presented with a CVA .? She presents today with 3 days of ongoing shortness of breath with exertion fatigue and some mild chest discomfort. Chest discomfort currently is a sense of pressure and pain mostly along the left sternal border and is tender to touch. She says it is somewhat there all the time and is worse when she does activity. If she gets up and does anything she has associated shortness of breath. Stress test has not been scheduled due to recent stress test and discussion with the patient, Dr. Crews last evening who was the hospitalist who admitted the patient and Cardiology at [facility], Dr. Auguste. Patient herself indicated it was not her who decided to not have a stress test. Findings most things exhausting. Just changing her ostomy/managing her ostomy today made the patient exhausted and she just wanted to lie down. Exam Vital Signs (past 8 hours): - 08/15/22 03:00 08/15/22 08:43 08/15/22 08:47 Temperature 98.0 F 98 F Pulse Rate 60 58 L 60 Respiratory Rate 18 18 Blood Pressure 116/44 L 134/47 L 134/47 L Pulse Oximetry 98 94 Oxygen Flow Rate 0 0 Oxygen Delivery Method Room Air Oxygen Flow Rate 0 Narrative Exam Narrative: General: Patient does not appear in acute medical distress. Cardiovascular: Heart sounds S1 and S2. Respiratory: Adequate air entry throughout the lung kaye. Chest: Costochondral junction on the left lateral aspect of the sternum has tenderness. Abdomen: Patient does have an ostomy of right lower quadrant for her urinary draining and she does intermittent catheter from there.? Site looks clean Objective ECG Impression: EKG done this morning: Heart rate 59 QT 496 QTC 491. No irregular beats or any ST elevation or depression. Labs Result Diagrams: 08/15/22 04:55 08/15/22 04:55 Labs: Laboratory Results - last 24 hr 08/14/22 08/14/22 08/15/22 11:02 11:20 04:55 WBC 7.3 RBC 3.66 L Hgb 10.8 L Hct 31.7 L MCV 86.8 MCH 29.5 MCHC 34.0 RDW 16.6 H Plt Count 189 Neut % (Auto) 54.9 Lymph % (Auto) 36.0 [place] % (Auto) 7.4 Eos % (Auto) 1.2 L Baso % (Auto) 0.5 Neut # (Auto) 4000 Lymph # (Auto) 2600 [place] # (Auto) 500 Eos # (Auto) 100 Baso # (Auto) 0 Sodium Potassium Chloride Carbon Dioxide BUN Creatinine Estimated GFR BUN/Creatinine Ratio Glucose Calcium Total Bilirubin AST ALT Alkaline Phosphatase Troponin I < 0.012 Total Protein Albumin Globulin Albumin/Globulin Ratio SARS-CoV-2 (PCR) Negative 08/15/22 04:55 WBC RBC Hgb Hct MCV MCH MCHC RDW Plt Count Neut % (Auto) Lymph % (Auto) [place] % (Auto) Eos % (Auto) Baso % (Auto) Neut # (Auto) Lymph # (Auto) [place] # (Auto) Eos # (Auto) Baso # (Auto) Sodium 136 L Potassium 3.8 Chloride 97 L Carbon Dioxide 27 BUN 22 H Creatinine 1.47 H Estimated GFR 36 L BUN/Creatinine Ratio 15.0 Glucose 122 H Calcium 9.0 Total Bilirubin 0.6 AST 26 ALT 17 Alkaline Phosphatase 88 Troponin I < 0.012 Total Protein 7.0 Albumin 3.8 Globulin 3.2 Albumin/Globulin Ratio 1.2 SARS-CoV-2 (PCR) [facility] Medical History CVA (cerebral vascular accident) Obstructive sleep apnea Personality change Presbyacusia Vaginal melanoma Word finding difficulty Surgical History H/O cardiac catheterization Family History Father CVA (cerebral vascular accident) CAD (coronary artery disease) Mother Congestive heart failure Social History household members: children Smoking Status: Never smoker alcohol intake: current Assessment & Plan Assessment & Plan narrative: 1. Chest pain. Proceeding with stress test at this time. Concern chest pain may be constant chondritis. Troponins have been normal x2. EKG shows no ischemic changes. Telemetry thus far has been unremarkable. We will initiate Solu-Medrol 125 mg IV dose for costochondritis and follow the patient through response. We will discuss further with Dr. Winn at [facility] today. 2. History of Coronary artery disease status post stent -continue to monitor, continue antiplatelet therapy. 3. Benign essential hypertension -continue home medications 4. History of CVA. 5. History of obstructive sleep apnea. Code status: Full code DVT prophylaxis: ASA and clopidogrel GI prophylaxis: Pantoprazole Substitute decision maker: Patient's son Darryl Time Spent With Patient Critical Care time: I spent a total of [] minutes of critical care time on this patient's care today; this time is exclusive of procedural time. Quality VTE Deep Vein Thrombosis/Pulmonary Embolism Present on Admission: No
[2022-08-15] MEDS: methylPREDNISolone 125 MG/2 ML VIAL IV (10:28)
--- NOTE | 2022-08-15 10:31 | CM.DANOTE ---
Initial Discharge Assessment Note: Case reviewed, met with patient and son Ronald. Introduced self and role. Payer: Medicare and [employer] PCP: Dr Josh Feliciano 81 year old admitted yesterday with fatigue, chest pain and sob. History of CAD with stent and CVA. Midline was placed. She has been started on Solumedrol. Patient lives in [place] with her son Ronald and his family who assist her as needed. She is independent at her baseline. She desires to return home on dc. Plan: When medically cleared, dc home with family. J Discharge Planning/Care Management Advanced directive, confirm from FAMILY Start: 08/14/22 14:46 Freq: Q24H Status: Active Protocol: Document 08/14/22 14:46 MS (Rec: 08/14/22 14:47 MS [id number]) Advance Directive, confirm on record Time 14:47 Person contacted Pt Copy received No CM Discharge Assessment Start: 08/15/22 10:26 Freq: Status: Active Protocol: Document 08/15/22 10:26 (Rec: 08/15/22 10:31 [id number]) Discharge Planning Assessment Assigned [employer] Mirna Campa RN/DCP Advance Directives? Yes Advance Directives on File No History Provided By Patient,Family Member,Medical Record Prior Living Arrangements House Household Members children Comment Son Ronald Type of transporation used prior to Relies on Others admit Independent with ADL's Yes Is patient alert and oriented? Yes Needs Assistance With Home Chores / Shopping Caregiver for Another No Patient/Family Preference OP PT Therapy Barriers to Discharge No Comment Home w/family, patient would like to return home today Discharge Plan Home Transportation Arrangement Family Referrals Initiated None needed Whiteboard Updated in Patient Room with Yes name and ext. # of [employer] Review Status In Process Next Review Type Continued Stay Review
[2022-08-15 12:00] VITALS: BP 135/48; PULSE 75; RESP 18; TEMP 36.6; O2SAT 93
--- NOTE | 2022-08-15 12:14 | DI.ECHO.S_ITS ---
[place] [facility]---------+ [facility] +---------+ : : [address] : : : : [id number] : : : : Phone: [phone]+ Echocardiogram Report + + :Name: DOMENICO ONEILL Study Date: 08/15/2022 Height: 60 in : :[facility] ReadingLocation: Weight: 150 lb : : Gender: Female BSA: 1.7 m2 : :: 1940 Age: 81 yrs BP: 118/47 mmHg: :Reason For Study: WALL MOTION : :Ordering Physician: KIKO, : :RACHEL LANDA Performed By: Saba Moore : :Referring: RACHEL HOOVER MD : + + Interpretation Summary Normal sinus rhythm. Normal LV size and wall thickness. Normal wall motion and left ventricular systolic function. Ejection fraction is 60-65%. No significant valvular abnormalities. Normal chamber sizes. Compared to prior study obtained June 17, 2022 no changes have occurred. Procedure: The study quality was technically adequate. A two-dimensional transthoracic echocardiogram with color flow and Doppler was performed in limited views only to assess wall motion.. Comparison is made with the echocardiogram of 06/17/2022. The patient was in sinus rhythm with heart rates between 72-75 bpm during the exam. Left Ventricle: The left ventricle is normal in size and wall thickness. The ejection fraction is estimated to be 60-65%. Atria: The left atrial size is normal. Right atrial size is normal. Pericardium/ Pleura There is no pericardial effusion. There is no pleural effusion. MMode/2D Measurements & Calculations LVIDd: 4.5 cm LA A2 area: 13.9 cm2 LVIDs: 3.0 cm LA A4 area: 13.6 cm2 FS: 34.5 % LA length (vol): 5.0 cm EPSS: 0.72 cm LA vol: 32.0 ml IVSd: 0.89 cm LA vol index: 19.4 ml/m2 LVPWd: 0.63 cm LV slade. diameter/BSA (cm/m^2): 2.8 LV sys. diameter/BSA (cm/m^2): 1.8 RA long axis: 4.9 cm RA area: 13.1 cm2 RA vol: 30.0 ml RA : 18.1 ml/m2 IVC diam: 1.1 cm Electronically signed by: Deepa Bardley M.D. on Reading Physician:08/15/2022 03:36 PM
[2022-08-15] MEDS: predniSONE 20 MG TABLET 40 MG PO (13:40)
[2022-08-15] MEDS: SENNOSIDES 8.6 MG TABLET 17.2 MG PO (13:40)
[2022-08-15 16:35] VITALS: BP 105/55; PULSE 85; RESP 16; TEMP 36.6; O2SAT 93
--- NOTE | 2022-08-15 17:40 | PM.DS.1 ---
History of Present Illness History of Present Illness Chief complaint: fatigue, chest pain, SOB Discharge Providers Provider Date of admission: 08/14/22 12:58 Discharge Date: 08/15/22 Primary care physician: Josh Feliciano MD Discharge provider: Caro Trotter MD Summary Hospital Course Discharge Diagnosis: Most responsible diagnosis for length of hospital stay: Chest wall pain consistent with costochondritis Pre admit diagnoses: Chest pain Shortness of breath on exertion Costochondritis Post admit diagnoses: Insertion of midline IV access Secondary diagnoses: CVA (cerebral vascular accident) Obstructive sleep apnea Personality change Presbyacusia Vaginal melanoma Word finding difficulty History of cardiac catheterization Hospital Course: Patient is a 81-year-old female with history of known coronary artery disease stent and CVA.? She had a stent placed 02/25/2022 3 days later on February 28 she presented with a CVA and right-sided facets.? She presented with 3 days of ongoing shortness of breath with exertion fatigue and some mild chest discomfort.? She says she feels like she has mostly recovered from her stroke rehab she took the initiative upon herself to do rehab herself because she could not get into stroke rehab.? She says she did start going in [place] for the past couple of weeks and has been doing really well until 3 days ago. Initially was thought that the patient would require a cardiac stress test and a midline was placed due to the fact that IV access was difficult on the patient. However on examination the next day it was readily apparent that the patient's pain was actually chest wall pain in the costochondral junctions of the anterior chest left greater than right. This was discussed with Dr. Winn, plant manager and he recommended a limited echo to ensure that wall function was unchanged. This was confirmed her echo was unchanged from previous echo. Patient initially was treated with methylprednisolone 125 mg intravenously and then subsequently initiating a 5 day course of prednisone 40 mg daily. Instructions to the patient are to closely watch her symptoms and if they gradually decreased with the ongoing prednisone treatment and Tylenol as needed treatment as well as intermittent heat to the chest wall, and no further cardiac follow-up is necessary for this episode of symptoms. Patient was instructed to follow up with her primary care provider. Status at Discharge Cognitive/behavioral status at discharge: at baseline, oriented Functional status at discharge: independent ambulation Overall status at discharge: patient is progressing back to baseline Time Spent with Patient Time spent: Greater than 30 minutes Exam Vital Signs (past 8 hours): - 08/15/22 12:00 08/15/22 16:35 Temperature 97.9 F 97.9 F Pulse Rate 75 85 Respiratory Rate 18 16 Blood Pressure 135/48 L 105/55 L Pulse Oximetry 93 93 Oxygen Flow Rate 0 Oxygen Delivery Method Room Air Oxygen Flow Rate 0 Narrative Exam Narrative: General:? Patient does not appear in acute medical distress. Cardiovascular:? Heart sounds S1 and S2. Respiratory:? Adequate air entry throughout the lung kaye. Chest:? Costochondral junction on the left lateral aspect of the sternum has tenderness and similar to a lesser extent on the right side. Abdomen:? Patient does have an ostomy of right lower quadrant for her urinary draining and she does intermittent catheter from there.? Site looks clean Objective Labs Result Diagrams: 08/15/22 04:55 08/15/22 04:55 Labs: Laboratory Results - last 24 hr 08/15/22 08/15/22 04:55 04:55 WBC 7.3 RBC 3.66 L Hgb 10.8 L Hct 31.7 L MCV 86.8 MCH 29.5 MCHC 34.0 RDW 16.6 H Plt Count 189 Neut % (Auto) 54.9 Lymph % (Auto) 36.0 [place] % (Auto) 7.4 Eos % (Auto) 1.2 L Baso % (Auto) 0.5 Neut # (Auto) 4000 Lymph # (Auto) 2600 [place] # (Auto) 500 Eos # (Auto) 100 Baso # (Auto) 0 Sodium 136 L Potassium 3.8 Chloride 97 L Carbon Dioxide 27 BUN 22 H Creatinine 1.47 H Estimated GFR 36 L BUN/Creatinine Ratio 15.0 Glucose 122 H Calcium 9.0 Total Bilirubin 0.6 AST 26 ALT 17 Alkaline Phosphatase 88 Troponin I < 0.012 Total Protein 7.0 Albumin 3.8 Globulin 3.2 Albumin/Globulin Ratio 1.2 [facility] Medical History CVA (cerebral vascular accident) Obstructive sleep apnea Personality change Presbyacusia Vaginal melanoma Word finding difficulty Surgical History H/O cardiac catheterization Family History Father CVA (cerebral vascular accident) CAD (coronary artery disease) Mother Congestive heart failure Social History household members: children Smoking Status: Never smoker alcohol intake: current Discharge Plan Discharge Plan Patient Disposition: Home Discharge orders & Medications Prescriptions: New sennosides [senna] 8.6 mg Tablet 17.2 mg PO DAILY Qty: 30 0RF prednisone 20 mg Tablet 40 mg PO DAILY Qty: 4 0RF Continued triamterene-hydrochlorothiazid 37.5-25 mg tablet 1 tab PO DAILY Qty: 90 3RF clopidogrel 75 mg tablet 75 mg PO DAILY Qty: 90 3RF allopurinol 100 mg tablet 100 mg PO DAILY Qty: 90 3RF pantoprazole 40 mg tablet,delayed release (DR/EC) 40 mg PO DAILY Qty: 14 0RF aspirin [Adult Low Dose Aspirin] 81 mg tablet,delayed release (DR/EC) 81 mg PO DAILY Vitamin D + Calcium 1 tab PO DAILY Rx Instructions: Vitamin D = 1000 Calcium = 1200 metoprolol succinate 50 mg tablet extended release 24 hr 50 mg PO DAILY rosuvastatin 40 mg tablet 40 mg PO DAILY Follow up/Referrals: Josh Feliciano MD [Primary Care Provider] - Visit Report/Discharge Packet Instructions: DI for Costochondritis, DI for Chest Pain, Prednisone Discharge Data Primary Care Provider: Josh Feliciano Attending Provider: Caro Trotter VTE Deep Vein Thrombosis/Pulmonary Embolism Present on Admission: No
--- NOTE | 2022-08-15 18:26 | PC.NURSE ---
Pt dressed and ready for d/c home. Pt midline removed and no tele. Pt denied having meds held at the hospital pharmacy and no items held in the safe. Provided pt and son with d/c instructions and answered all questions. Provided education about prednisone, costochondritis, chest pain, and stroke s/s. Pt taken out via wheel chair by SALES DEPARTMENT SUPERVISOR with all belongings.
== END 2022-08-15 18:30 | disposition home or self-care (01) ==
LOC: ED 12:58 → AC 12:59
PROVIDERS: Family Medicine; Admitting Provider Neuromusculoskeletal Medicine, Sports Medicine; Emergency Provider Emergency Medicine; Family Provider Student in an Organized Health Care Education/Training Program; PCP Student in an Organized Health Care Education/Training Program; Referring Provider Emergency Medicine; Visit Provider Neuromusculoskeletal Medicine, Sports Medicine
DX: R07.9 Chest pain, unspecified (principal); I25.10 Atherosclerotic heart disease of native coronary artery without angina pectoris; G47.33 Obstructive sleep apnea (adult) (pediatric); Z79.01 Long term (current) use of anticoagulants; I10 Essential (primary) hypertension; Z20.822 Contact with and (suspected) exposure to COVID-19; I69.398 Other sequelae of cerebral infarction
CPT/HCPCS: 36415; 36592; 71045; 80053; 82550; 83690; 83880; 84484; 85025; 87635; 93005; 93010; 93307; 96374; 99284; C9803; G0378; J2930

== ENCOUNTER → 2022-12-03 09:45 | Outpatient (CLI) | payer MEDICARE, OTHER, SELFPAY ==
[2022-08-14 13:32] VITALS: BMI 29.2
[2022-12-03 10:55] LABS: Add Manual Diff / Slide Review NO; Basophils Absolute Auto 100 /uL (0-100); Basophils Percent Auto 0.8 % (0-2); Eosinophils Absolute Auto 100 /uL (0-450); Eosinophils Percent Auto 1.1 % (2-4); Lymphocytes Absolute Auto 2800 /uL (1100-4500); Lymphocytes Percent Auto 37.9 % (25-40); Mean Corpuscular HGB Conc 33.5 % (30-36); Mean Corpuscular Hemoglobin 30.2 PG (26-34); Mean Corpuscular Volume 90.2 fL (80-100); Monocytes Absolute Auto 500 /uL (0-900); Monocytes Percent Auto 7.1 % (3-14); Neutrophils Absolute Auto 3900 /uL (1500-7000); Neutrophils Percent Auto 53.1 % (50-75); Platelet Count 233 X10^3/uL (150-400); Red Blood Cell Count 3.66 X10^6/uL (4.0-5.2); Red Cell Distribution Width 14.8 % (11.6-14.8); White Blood Cell Count 7.3 X10^3/uL (4.5-11.0)
[2022-12-03 11:07] LABS: Alanine Aminotransferase 19 IU/L (<35); Albumin 4.4 g/dL (3.5-5.0); Albumin Globulin Ratio 1.3 (1.0-2.8); Alkaline Phosphatase 121 U/L (38-126); Aspartate Aminotransferase 27 IU/L (14-36); BUN Creatinine Ratio 8.8 (6-22); Bilirubin Total 0.7 mg/dL (0.2-1.3); Blood Urea Nitrogen 19 mg/dL (7-17); Calcium 9.5 mg/dL (8.4-10.2); Carbon Dioxide 28 mmol/L (22-32); Chloride 96 mmol/L (98-107); Cholesterol 99 mg/dL (140-199); Estimated Glomerular Filt Rate 23 mL/min (>60); Globulin 3.3 g/dL (1.7-4.1); Glucose 128 mg/dL (80-110); HDL Cholesterol 36 mg/dL (40-60); HEMOLYSIS < 15 (0-50); LDL Cholesterol Calculated 23 mg/dL (<100); Potassium 3.4 mmol/L (3.4-5.1); Sodium 137 mmol/L (137-145); Total Protein 7.7 g/dL (6.3-8.2); Triglycerides 201 mg/dL (35-150)
[2022-12-03 11:41] LABS: TSH w/ Reflex to FT4 5.45 uIU/mL (0.47-4.68)
== END ==
PROVIDERS: Family Provider Student in an Organized Health Care Education/Training Program; PCP Student in an Organized Health Care Education/Training Program; Referring Provider Internal Medicine Cardiovascular Disease; Visit Provider Internal Medicine Cardiovascular Disease
DX: E78.5 Hyperlipidemia, unspecified (principal); I10 Essential (primary) hypertension
CPT/HCPCS: 36415; 80053; 80061; 84443; 85025

== ENCOUNTER → 2022-12-19 10:23 | Outpatient (CLI) | payer MEDICARE, OTHER, SELFPAY ==
[2022-08-14 13:32] VITALS: BMI 29.2
[2022-12-19 12:02] LABS: BUN Creatinine Ratio 7.7 (6-22); Blood Urea Nitrogen 14 mg/dL (7-17); Calcium 8.7 mg/dL (8.4-10.2); Carbon Dioxide 25 mmol/L (22-32); Chloride 106 mmol/L (98-107); Estimated Glomerular Filt Rate 28 mL/min (>60); Glucose 195 mg/dL (80-110); HEMOLYSIS < 15 (0-50); Potassium 3.6 mmol/L (3.4-5.1); Sodium 140 mmol/L (137-145)
[2022-12-19 12:19] LABS: Free T4, Direct Thyroxine 0.75 ng/dL (0.78-2.19)
[2022-12-19 12:33] LABS: Thyroid Stimulating Hormone 1.86 uIU/mL (0.47-4.68)
[2022-12-21 03:23] LABS: Cystatin C 1.52 mg/L (0.87-1.12)
== END ==
PROVIDERS: Internal Medicine Cardiovascular Disease; Family Provider Student in an Organized Health Care Education/Training Program; PCP Student in an Organized Health Care Education/Training Program; Referring Provider Student in an Organized Health Care Education/Training Program; Visit Provider Student in an Organized Health Care Education/Training Program
DX: N17.9 Acute kidney failure, unspecified (principal); E03.9 Hypothyroidism, unspecified
CPT/HCPCS: 36415; 80048; 82610; 84439; 84443

== ENCOUNTER → 2023-01-14 13:30 | Outpatient (CLI) | payer MEDICARE, OTHER, SELFPAY ==
[2022-08-14 13:32] VITALS: BMI 29.2
--- NOTE | 2023-01-14 13:31 | DI.RAD.S_ITS ---
Bone Density Report Name: DOMENICO ONEILL Age: 82 Sex: Female Ethnicity: White Date of : 1940 Indication: osteopenia; Referring Provider: MARY CID Study: Bone densitometry was performed. Exam Date: January 14, 2023 Accession number: [id number] Bone Density: Region BMD T-score Z-score Classification AP Spine(L1, L2, L3) 0.915 -0.9 1.7 Normal Femoral Neck (Left) 0.531 -2.9 -0.5 Osteoporosis Total Hip (Left) 0.656 -2.3 -0.2 Osteopenia Femoral Neck (Right) 0.553 -2.7 -0.3 Osteoporosis Total Hip (Right) 0.684 -2.1 0.0 Osteopenia Total Hip Mean 0.670 -2.2 -0.1 Osteopenia World Health Organization criteria for BMD impression classify patients as: Normal (T-score at or above -1.0), Osteopenia (T-score between -1.0 and -2.5), or Osteoporosis (T-score at or below -2.5). 10-year Fracture Risk: FRAX not reported because: Some T-score for Spine Total or Hip Total or Femoral Neck at or below -2.5 Previous Exams: -- Region Exam Age BMD T-score BMD Change BMD Change Date g/cm2 vs Baseline vs Previous -- AP Spine (L1-L3) 01/14/2023 82 0.915 -0.9 -0.074 (-7.5%)# -0.074 (-7.5%)# 07/26/2020 79 0.989 -0.3 Total Hip(Left) 01/14/2023 82 0.656 -2.3 -0.017 (-2.5%)# -0.017 (-2.5%)# 07/26/2020 79 0.672 -2.2 Total Hip(Right) 01/14/2023 82 0.684 -2.1 -0.020 (-2.8%)# -0.020 (-2.8%)# 07/26/2020 79 0.704 -1.9 -- *Denotes significance at 95% confidence level, LSC for AP Spine = 0.022 g/cm2, LSC for Total Hip = 0.027 g/cm2 # Denotes dissimilar scan types or analysis methods Impression: The patient has osteoporosis, based on the Left Femoral Neck T-score. No significant bone loss was observed. Discussion: INCREASED RISK OF FRACTURE. BONE DENSITY IS UNDESIRABLY LOW AT ONE OR MORE SKELETAL SITES, CONSISTENT WITH POSTMENOPAUSAL OSTEOPOROSIS. This patient's lowest T-score meets the World Health Organization's (WHO) criteria for osteoporosis at one or more sites (T-score -2.5 or below). In untreated patients, the risk of osteoporotic fracture increases approximately two-fold for each 1.0 SD decrease in T-score. Low bone density is not the only risk factor for fracture; also consider factors such as patient's age, frailty or poor health, risk of falling, risk of injury, previous osteoporotic fracture, family history of osteoporosis, cigarette smoking, low body weight, etc. Not everyone with low bone mineral density has osteoporosis; osteomalacia and other metabolic bone disorders should also be considered. Patients who have osteoporosis should be evaluated for specific diseases and conditions (secondary causes) that may cause or contribute to bone loss. The [place] Association [employer] Clinical Endocrinologists (AACE) and National Osteoporosis Foundation (NOF) recommend pharmacologic intervention for all postmenopausal women whose T-score is in this range. The patient should follow a healthful lifestyle (good nutrition with adequate calcium and vitamin D, and appropriate weight-bearing exercise). Follow-Up: Consider a repeat BMD and Vertebral Fracture Assessment (VFA) exam in 2 years or sooner if medically necessary, to reassess this patient's status. Reported by: KRYSTLE PACHECO M.D. on 01/14/2023 1:52:00 PM.
== END ==
PROVIDERS: Family Provider Student in an Organized Health Care Education/Training Program; PCP Student in an Organized Health Care Education/Training Program; Referring Provider Student in an Organized Health Care Education/Training Program; Visit Provider Student in an Organized Health Care Education/Training Program
DX: Z78.0 Asymptomatic menopausal state (principal); M81.0 Age-related osteoporosis without current pathological fracture; Z90.710 Acquired absence of both cervix and uterus
CPT/HCPCS: 77080

== ENCOUNTER 2023-01-23 12:30 | Observation (INO) | payer MEDICARE, OTHER, SELFPAY ==
[2022-08-14 13:32] VITALS: BMI 29.2
[2023-01-23] VITALS (16 sets, daily range): BP systolic 113–169; BP diastolic 41–78; PULSE 61–76; RESP 16–32; TEMP 36.5–37.3; O2SAT 96–99; BMI 29.2
--- NOTE | 2023-01-23 12:52 | DI.CT.S_ITS ---
PROCEDURE: CT HEAD/BRAIN WO CON INDICATIONS: right visual loss since yesterady TECHNIQUE: Noncontrast 4.5 mm thick angled axial sections acquired from the foramen magnum to the vertex, with coronal and sagittal reformats. For radiation dose reduction, the following was used: automated exposure control, adjustment of mA and/or kV according to patient size. COMPARISON: 03/01/2022, 02/28/2022. FINDINGS: Image quality: Excellent. CSF spaces: Basal cisterns are patent. No extra-axial fluid collections. The ventricles are symmetric in size and shape. Brain: No intracranial bleeds or masses. There is cerebral volume loss for age, with resultant ventricular and sulcal prominence. There are periventricular and deep white matter chronic small vessel ischemic changes. There is intracranial internal carotid artery atherosclerosis. Skull and face: Calvarium and visualized facial bones appear intact, without suspicious lesions. Sinuses: Visualized sinuses and mastoids are clear. IMPRESSION: No CT evidence of acute intracranial abnormalities. No significant changes from previous studies Dictated by: Oskar Morelos M.D. on 01/23/2023 at 14:55 Approved by: Oskar Morelos M.D. on 01/23/2023 at 14:56
--- NOTE | 2023-01-23 13:20 | ED_ITS ---
HPI - Neuro Symptoms/Deficit General Chief Complaint: Neuro Symptoms/Deficit Stated Complaint: Thinks stroke Time Seen by Provider: 01/23/23 12:41 Source: patient and family Mode of arrival: Ambulatory History of Present Illness HPI Narrative: Patient is a 82-year-old female who presents with right eye visual deficit. She has a history of stroke, hypertension, hypothyroid. Presents today with right eye visual deficit. She said it started last evening. She made an appointment with her supervisor [employer]atic [employer] today who confirmed a right hemianopsia. Her eyes are dilated she is complaining of some blurry vision now. She is no numbness ti ngling or weakness she had no facial droop or slurring of speech. She reports that her last stroke she actually had bilateral visual deficits which self- resolved she never received tPA. She denies any chest pain palpitations fever or chills. Related Data Home Medications Medication Instructions Recorded Confirmed Vitamin D + Calcium 1 tab PO DAILY 08/01/21 01/23/23 aspirin 81 mg tablet,delayed 81 mg PO DAILY 08/01/21 01/23/23 release (Adult Low Dose Aspirin) metoprolol succinate 50 mg 50 mg PO DAILY 06/27/22 01/23/23 tablet,extended release 24 hr rosuvastatin 40 mg tablet 40 mg PO DAILY 06/27/22 01/23/23 levothyroxine 50 mcg tablet 50 mcg PO DAILY 12/30/22 01/23/23 Previous Rx's Medication Instructions Recorded allopurinol 100 mg tablet 100 mg PO DAILY #90 tabs 02/01/22 clopidogrel 75 mg tablet 75 mg PO DAILY #90 tabs 10/29/22 mirtazapine 15 mg tablet See Rx Instructions .Route 12/09/22 .COMPLEX #30 tabs tramadol 50 mg tablet 50 mg PO Q8H PRN pain #30 tabs 12/23/22 Allergies Allergy/AdvReac Type Severity Reaction Status Date / Time amoxicillin [From Augmentin] Allergy Intermediate nausea/vomi Verified 01/23/23 12:46 ting clavulanic acid Allergy Intermediate nausea/vomi Verified 01/23/23 12:46 [From Augmentin] ting Review of Systems Review of Systems ROS Unobtainable: All systems reviewed & are unremarkable except as noted in HPI and below Patient History Medical History CVA (cerebral vascular accident) CVA (cerebral vascular accident) Ischemic heart disease due to coronary artery obstruction Obstructive sleep apnea Personality change Posterior vitreous detachment of right eye Presbyacusia Vaginal melanoma Surgical History H/O cardiac catheterization Family History Father CVA (cerebral vascular accident) CAD (coronary artery disease) Mother Congestive heart failure Social History household members: children Smoking Status: Never smoker alcohol intake: current Smoking Status: Never smoker alcohol intake frequency: holidays/special occasions only Substance Use Type: does not use Exam Initial Vital Signs Initial Vital Signs: Vital Signs Temperature 99.1 F 01/23/23 12:35 Pulse Rate 73 01/23/23 12:35 Respiratory Rate 16 01/23/23 12:35 Blood Pressure 169/78 H 01/23/23 12:35 Pulse Oximetry 98 01/23/23 12:35 Oxygen Delivery Method Room Air 01/23/23 12:35 GENERAL: Alert pleasant female HEENT: Head atraumatic,EOMI, pupils dilated equally, face symmetric, moist mucous membranes CARDIOVASCULAR: Regular rate and rhythm without murmurs, rubs or gallops. RESPIRATORY: Breath sounds equal bilaterally, no wheezes rales or rhonchi. ABDOMEN: Soft, nontender. Normoactive bowel sounds all 4 quadrants. No guarding or rebound. EXTREMITIES: Normal range of motion, no clubbing or edema. Neurovascularly intact NEUROLOGICAL: Alert and oriented x4.Normal gait and speech. Cranial nerves II through XII grossly intact. Good [id number], good [id number], strength equal bilaterally, no dysarthria or aphasia, sensation in tact to soft touch bilaterally, right-sided hemianopsia no facial droop SKIN: Warm, dry, no laceration, no petechiae, no rashes or lesions. Scores NIH Stroke Scale Level of Conciousness: Alert, keenly responsive Ask month/age: Answers both questions correctly. Open/close eyes, close hand: Performs both tasks correctly Best gaze horizontal: Partial gaze palsy, can be overcome by finger tracking, head turning Visual kaye: No visual loss Facial palsy: Normal symetrical movement Left arm drift: No drift for full 10 sec Right arm drift: No drift for full 10 sec Left leg drift: No drift for full 5 sec Right leg drift: No drift for full 5 sec Limb ataxia: Absent Sensory on face/arms/legs: Normal, no sensory loss Best language: No aphasia, normal Dysarthria: Normal Extinction or inattention: No abnormality Total NIH Stroke scale score: 1 Course Orders Ordered: ED Orders 01/23/23 12:46 EKG-12 Lead Routine 01/23/23 12:52 CT head/brain wo con Stat 01/23/23 13:19 CBC Auto Diff [Complete Blood Count AUTO DIFF] Stat CMP [Comprehensive Metabolic Panel] Stat Lipid Panel Urgent Magnesium Urgent TSH w/ Reflex to FT4 Urgent Troponin & CK Cardiac Panel Stat 01/23/23 14:45 COVID19 -Nasal RAPID Stat 01/23/23 15:07 EC echo doppler complete Urgent 01/23/23 15:08 MR head/brain wo con Stat 01/23/23 15:10 Education, smoking cessation ONGOING 01/24/23 05:00 BMP [Basic Metabolic Panel] DAILY CBC Auto Diff [Complete Blood Count AUTO DIFF] DAILY 01/25/23 05:00 BMP [Basic Metabolic Panel] DAILY CBC Auto Diff [Complete Blood Count AUTO DIFF] DAILY 01/26/23 05:00 BMP [Basic Metabolic Panel] DAILY CBC Auto Diff [Complete Blood Count AUTO DIFF] DAILY Acetaminophen (Acetaminophen 325 Mg Tablet) 650 mg PO Q6H PRN PRN Reason: Fever/Mild Pain (1-3) Allopurinol (Allopurinol 100 Mg Tablet) 100 mg PO DAILY [facility] Aspirin (Aspirin Ec 81 Mg Tablet) 81 mg PO DAILY [facility] Atorvastatin Calcium (Atorvastatin 20 Mg Tablet) 80 mg PO BEDTIME [facility] [facility] Clopidogrel Bisulfate (Clopidogrel 75 Mg Tablet) 75 mg PO DAILY [facility] Stop: 02/13/23 15:09 Last Admin: 01/23/23 17:07 Dose: 75 mg Documented By: LEE Cyclobenzaprine HCl (Cyclobenzaprine 10 Mg Tablet) 10 mg PO Q8H PRN PRN Reason: muscle spasm Dextrose (Dextrose 50 % In Water 25 Gm/50 Ml Syringe) 25 gm IV PRN PRN PRN Reason: Hypoglycemia Heparin Sodium (Porcine) (Heparin 5,000 Unit/Ml Vial) 5,000 unit SUBCUT BID [facility] Last Admin: 01/23/23 17:08 Dose: 5,000 unit Documented By: LEE Sodium Chloride (Normal Saline 0.9%) 1,000 mls @ 125 mls/hr IV CONT ELSY Stop: 01/24/23 03:14 Last Admin: 01/23/23 17:15 Dose: 125 mls/hr Documented By: LEE Insulin Human Lispro (Insulin Lispro 100 Unit/Ml 3ml Vial) 0 unit SUBCUT ACHS ELSY; Protocol Last Admin: 01/23/23 17:08 Dose: 100 unit Documented By: LEE Co-signed By: SONIA Labetalol HCl (Labetalol 20 Mg/4 Ml Syringe) 10 mg IV Q5MIN PRN PRN Reason: SBP >220 or DBP >110 Levothyroxine Sodium (Levothyroxine 50 Mcg Tablet) 50 mcg PO 0600 ELSY Melatonin (Melatonin 3 Mg Tablet) 6 mg PO BEDTIME PRN PRN Reason: Insomnia Mirtazapine (Mirtazapine 15 Mg Tablet) 15 mg PO BEDTIME ELSY Naloxone HCl (Naloxone 0.4 Mg/Ml Vial) 0.2 mg IV Q2MIN PRN PRN Reason: Opiate Reversal Polyethylene Glycol (Polyethylene Glycol 3350 17 Gm Powd.Pack) 17 gm PO DAILY PRN PRN Reason: Constipation Potassium Chloride (Potassium Chloride 20 Meq Tab) 40 meq PO TIDWM [facility] Stop: 01/24/23 12:01 Last Admin: 01/23/23 17:07 Dose: 40 meq Documented By: LEE Sennosides (Sennosides 8.6 Mg Tablet) 8.6 mg PO BID PRN PRN Reason: Constipation Tramadol HCl (Tramadol 50 Mg Tablet) 50 mg PO Q8H PRN PRN Reason: pain Last Admin: 01/23/23 17:11 Dose: 50 mg Documented By: LEE Discontinued Medications Aspirin (Aspirin 81 Mg Chew Tab) 243 mg PO NOW ONE Stop: 01/23/23 15:03 Last Admin: 01/23/23 15:04 Dose: 243 mg Documented By: [place] Nf - Rosuvastatin 40 (Mg Tablet) 80 mg PO BEDTIME ELSY Potassium Chloride (Potassium Chloride 20 Meq Tab) 40 meq PO NOW ONE Stop: 01/23/23 14:44 Last Admin: 01/23/23 15:00 Dose: 40 meq Documented By: [place] Vital Signs Vital signs: Vital Signs - 8 hr 01/23/23 12:35 01/23/23 12:39 01/23/23 12:40 Temperature 99.1 F Pulse Rate 73 73 Respiratory Rate 16 Blood Pressure 169/78 H 169/78 H Pulse Oximetry 98 97 Oxygen Delivery Method Room Air 01/23/23 12:40 01/23/23 13:00 01/23/23 13:00 Temperature Pulse Rate 74 69 Respiratory Rate 20 Blood Pressure 131/63 Pulse Oximetry 98 97 Oxygen Delivery Method Room Air 01/23/23 13:30 01/23/23 14:00 01/23/23 14:28 Temperature Pulse Rate 69 68 Respiratory Rate 16 18 Blood Pressure 115/59 L Pulse Oximetry 97 97 Oxygen Delivery Method 01/23/23 14:28 01/23/23 14:30 01/23/23 14:30 Temperature Pulse Rate 62 61 Respiratory Rate 17 16 Blood Pressure 113/56 L Pulse Oximetry 98 98 Oxygen Delivery Method 01/23/23 15:00 01/23/23 15:07 01/23/23 15:07 Temperature Pulse Rate 66 73 Respiratory Rate 23 32 H Blood Pressure 148/65 H Pulse Oximetry 97 99 Oxygen Delivery Method 01/23/23 15:30 01/23/23 15:31 01/23/23 15:31 Temperature Pulse Rate 62 62 Respiratory Rate 19 19 Blood Pressure 122/55 L Pulse Oximetry 99 98 Oxygen Delivery Method 01/23/23 16:00 01/23/23 16:00 01/23/23 16:16 Temperature Pulse Rate 69 76 Respiratory Rate 31 H 22 Blood Pressure 119/75 Pulse Oximetry 99 Oxygen Delivery Method 01/23/23 16:16 Temperature Pulse Rate Respiratory Rate Blood Pressure 163/72 H Pulse Oximetry Oxygen Delivery Method MDM - Neuro Symptoms/Deficit Lab Data 01/23/23 13:19 01/23/23 13:19 Labs: Lab Results 01/23/23 01/23/23 01/23/23 Range/Units 13:19 13:19 13:19 WBC 8.6 (4.5-11.0) X10^3/uL RBC 3.82 L (4.0-5.2) X10^6/uL Hgb 11.5 L (12.0-16.0) g/dL Hct 33.3 L (36-46) % MCV 87.3 (80-100) fL MCH 30.2 (26-34) PG MCHC 34.6 (30-36) % RDW 14.6 (11.6-14.8) % Plt Count 190 (150-400) X10^3/uL Neut % (Auto) 58.7 (50-75) % Lymph % (Auto) 32.0 (25-40) % [place] % (Auto) 7.2 (3-14) % Eos % (Auto) 1.2 L (2-4) % Baso % (Auto) 0.9 (0-2) % Neut # (Auto) 5100 (1207-5824) /uL Lymph # (Auto) 2800 (4795-7699) /uL [place] # (Auto) 600 (0-900) /uL Eos # (Auto) 100 (0-450) /uL Baso # (Auto) 100 (0-100) /uL Sodium 129 L (137-145) mmol/L Potassium 2.8 L (3.4-5.1) mmol/L Chloride 86 L (98-107) mmol/L Carbon Dioxide 32 (22-32) mmol/L BUN 19 H (7-17) mg/dL Creatinine 1.73 H (0.52-1.04) mg/dL Estimated GFR 29 L (>60) mL/min BUN/Creatinine Ratio 11.0 (6-22) Glucose 196 H (80-110) mg/dL Calcium 9.6 (8.4-10.2) mg/dL Magnesium 1.8 (1.6-2.3) mg/dL Total Bilirubin 0.4 (0.2-1.3) mg/dL AST 24 (14-36) IU/L ALT 18 (<35) IU/L Alkaline Phosphatase 114 (38-126) U/L Total Creatine Kinase 155 H (30-135) U/L CK-MB (CK-2) 0.61 (<2.37) ng/mL CK-MB (CK-2) Rel Index 0.4 L (1.5-5.0) % Troponin I < 0.012 (0.01-0.034) ng/mL Total Protein 7.5 (6.3-8.2) g/dL Albumin 4.2 (3.5-5.0) g/dL Globulin 3.3 (1.7-4.1) g/dL Albumin/Globulin Ratio 1.3 (1.0-2.8) Triglycerides (35-150) mg/dL Cholesterol (140-199) mg/dL LDL Cholesterol, Calc (<100) mg/dL HDL Cholesterol (40-60) mg/dL TSH (0.47-4.68) uIU/mL SARS-CoV-2 (PCR) (Negative) 01/23/23 01/23/23 01/23/23 Range/Units 13:19 13:19 14:45 WBC (4.5-11.0) X10^3/uL RBC (4.0-5.2) X10^6/uL Hgb (12.0-16.0) g/dL Hct (36-46) % MCV (80-100) fL MCH (26-34) PG MCHC (30-36) % RDW (11.6-14.8) % Plt Count (150-400) X10^3/uL Neut % (Auto) (50-75) % Lymph % (Auto) (25-40) % [place] % (Auto) (3-14) % Eos % (Auto) (2-4) % Baso % (Auto) (0-2) % Neut # (Auto) (7405-8224) /uL Lymph # (Auto) (9855-8338) /uL [place] # (Auto) (0-900) /uL Eos # (Auto) (0-450) /uL Baso # (Auto) (0-100) /uL Sodium (137-145) mmol/L Potassium (3.4-5.1) mmol/L Chloride (98-107) mmol/L Carbon Dioxide (22-32) mmol/L BUN (7-17) mg/dL Creatinine (0.52-1.04) mg/dL Estimated GFR (>60) mL/min BUN/Creatinine Ratio (6-22) Glucose (80-110) mg/dL Calcium (8.4-10.2) mg/dL Magnesium (1.6-2.3) mg/dL Total Bilirubin (0.2-1.3) mg/dL AST (14-36) IU/L ALT (<35) IU/L Alkaline Phosphatase (38-126) U/L Total Creatine Kinase (30-135) U/L CK-MB (CK-2) (<2.37) ng/mL CK-MB (CK-2) Rel Index (1.5-5.0) % Troponin I (0.01-0.034) ng/mL Total Protein (6.3-8.2) g/dL Albumin (3.5-5.0) g/dL Globulin (1.7-4.1) g/dL Albumin/Globulin Ratio (1.0-2.8) Triglycerides 330 H (35-150) mg/dL Cholesterol 91 L (140-199) mg/dL LDL Cholesterol, Calc -2 (<100) mg/dL HDL Cholesterol 27 L (40-60) mg/dL TSH 2.00 (0.47-4.68) uIU/mL SARS-CoV-2 (PCR) Negative (Negative) Imaging Data CT scan - head: Radiologist's Impression: PROCEDURE:? CT HEAD/BRAIN WO CON ? INDICATIONS:? right visual loss since yesterady ? TECHNIQUE:? Noncontrast 4.5 mm thick angled axial sections acquired from the foramen magnum to the vertex, with coronal and sagittal reformats.? For radiation dose reduction, the following was used:? automated exposure control, adjustment of mA and/or kV according to patient size.? ? COMPARISON:? 03/01/2022, 02/28/2022. ? FINDINGS:? Image quality:? Excellent.? ? CSF spaces:? Basal cisterns are patent.? No extra-axial fluid collections.? The ventricles are symmetric in size and shape.? ? Brain:? No intracranial bleeds or masses.? There is cerebral volume loss for age, with resultant ventricular and sulcal prominence.? There are periventricular and deep white matter chronic small vessel ischemic changes.? There is intracranial internal c arotid artery atherosclerosis.? ? Skull and face:? Calvarium and visualized facial bones appear intact, without suspicious lesions.? ? Sinuses:? Visualized sinuses and mastoids are clear.? ? IMPRESSION:? No CT evidence of acute intracranial abnormalities.? No significant changes from previous studies ? ? Dictated by: Oskar Morelos M.D. on 01/23/2023 at 14:55 ? ? Approved by: Oskar Morelos M.D. on 01/23/2023 at 14:56 ? ECG Data Interpretation: Normal sinus rhythm rate 71 [place] interval 212 QRS [address] changes no T-wave inversions MDM Narrative Medical decision making narrative: Patient 82-year-old female with prior history of CVA presenting today with right-sided hemianopsia from the supervisor [employer]. She has no other deficits NIH stroke scale of 1. She is out of the window for tPA. She is no large vessel occlusion deficits. GFR is 29 which seems to be stable for her. Will hold off CT angio for now does not change outcome at this point. She took aspirin 81 mg this morning and Plavix morning as well. Other blood work shows sodium 129 potassium 2.8 she is also given potassium 40 mEq. reports the last few times they have checked electrolytes her potassium has been low this is likely secondary due to her hydrochlorothiazide Dr. Mejias updated on patient's symptoms test results patient Discharge Plan Departure Patient Disposition: Admitted as Observation Clinical Impression: CVA (cerebral vascular accident) Admit Date/Time: 01/23/23 16:31 Admit Provider: Juanito Mejias
[2023-01-23 13:28] LABS: Add Manual Diff / Slide Review NO; Basophils Absolute Auto 100 /uL (0-100); Basophils Percent Auto 0.9 % (0-2); Eosinophils Absolute Auto 100 /uL (0-450); Eosinophils Percent Auto 1.2 % (2-4); Hematocrit 33.3 % (36-46); Hemoglobin 11.5 g/dL (12.0-16.0); Lymphocytes Absolute Auto 2800 /uL (1100-4500); Mean Corpuscular HGB Conc 34.6 % (30-36); Mean Corpuscular Hemoglobin 30.2 PG (26-34); Mean Corpuscular Volume 87.3 fL (80-100); Monocytes Absolute Auto 600 /uL (0-900); Monocytes Percent Auto 7.2 % (3-14); Neutrophils Absolute Auto 5100 /uL (1500-7000); Neutrophils Percent Auto 58.7 % (50-75); Platelet Count 190 X10^3/uL (150-400); Red Blood Cell Count 3.82 X10^6/uL (4.0-5.2); Red Cell Distribution Width 14.6 % (11.6-14.8); White Blood Cell Count 8.6 X10^3/uL (4.5-11.0)
[2023-01-23 13:42] LABS: Alanine Aminotransferase 18 IU/L (<35); Albumin 4.2 g/dL (3.5-5.0); Albumin Globulin Ratio 1.3 (1.0-2.8); Alkaline Phosphatase 114 U/L (38-126); Aspartate Aminotransferase 24 IU/L (14-36); Bilirubin Total 0.4 mg/dL (0.2-1.3); Blood Urea Nitrogen 19 mg/dL (7-17); Calcium 9.6 mg/dL (8.4-10.2); Carbon Dioxide 32 mmol/L (22-32); Chloride 86 mmol/L (98-107); Creatine Kinase 155 U/L (30-135); Estimated Glomerular Filt Rate 29 mL/min (>60); Globulin 3.3 g/dL (1.7-4.1); Glucose 196 mg/dL (80-110); HEMOLYSIS < 15 (0-50); Potassium 2.8 mmol/L (3.4-5.1); Sodium 129 mmol/L (137-145); Total Protein 7.5 g/dL (6.3-8.2)
[2023-01-23 13:53] LABS: Troponin I < 0.012 ng/mL (0.01-0.034)
[2023-01-23 14:09] LABS: CKMB % Relative Index 0.4 % (1.5-5.0); Creatine Kinase MB 0.61 ng/mL (<2.37)
--- NOTE | 2023-01-23 14:22 | PC.NURSE ---
reports she lost her peripheral vision on the right side yesterday. went to the eye doctor this morning and was sent to the Er.
[2023-01-23] MEDS: POTASSIUM CHLORIDE 20 MEQ TAB 40 MEQ PO ×2 (15:00→17:07)
[2023-01-23] MEDS: ASPIRIN 81 MG CHEW TAB 243 MG PO (15:04)
--- NOTE | 2023-01-23 15:07 | DI.ECHO.S_ITS ---
[facility] +---------+ : : [id number] : : : : [id number] : : : : Phone: [phone] Echocardiogram Report + + :Name: DOMENICO ONEILL Study Date: 01/23/2023 Height: 60 in : :[facility] ReadingLocation: Weight: 150 lb : : Gender: Female BSA: 1.7 m2 : :: 1940 Age: 82 yrs BP: 148/65 mmHg: :Reason For Study: POSSIBLE STROKE : :Ordering Physician: CORINA, : :JOE Higginbotham Performed By: Saba Moore : :Referring: JOE ARRIAGA : + + Interpretation Summary The left ventricle is normal in size and wall thickness. The ejection fraction is estimated to be 60-65%. There are no focal wall motion abnormalities. Diastolic parameters suggest a relaxation abnormality of the left ventricle, consistent with probable normal filling pressures. The right ventricle is normal in size and function. The left atrial size is normal. Right atrial size is normal. There is no Doppler evidence for an interatrial shunt. There is no significant valvular heart disease. The aortic root is normal size. Procedure: A two-dimensional transthoracic echocardiogram with color flow and Doppler was performed. The study quality was technically adequate. Comparison is made with the echocardiogram of 08/15/2022. The patient was in sinus rhythm with heart rates between 61-88 bpm during the exam. Left Ventricle: The left ventricle is normal in size and wall thickness. The ejection fraction is estimated to be 60-65%. There are no focal wall motion abnormalities. Diastolic parameters suggest a relaxation abnormality of the left ventricle, consistent with probable normal filling pressures. Right Ventricle: The right ventricle is normal in size and function. Atria: The left atrial size is normal. Right atrial size is normal. There is no Doppler evidence for an interatrial shunt. Mitral Valve: The mitral valve is normal in structure and function. There is trace mitral regurgitation. Aortic Valve: The aortic valve is trileaflet. The aortic valve opens well. There is no aortic valve stenosis. No aortic regurgitation is present. Tricuspid Valve: The tricuspid valve is normal in structure and function. There is trace tricuspid regurgitation. Pulmonic Valve: The pulmonic valve is not well visualized. There is no pulmonic valvular regurgitation. There is no significant valvular heart disease. Great Vessels: The aortic root is normal size. The dimensions of the ascending aorta are normal. The IVC is of normal diameter and collapses greater than 50% with a sniff. This suggests a low right atrial pressure of 3 mm Hg. Pericardium/ Pleura There is no pericardial effusion. There is no pleural effusion. MMode/2D Measurements & Calculations LVIDd: 4.3 cm LVOT diam: 2.0 cm LVIDs: 3.1 cm Ao root diam: 2.8 cm FS: 28.1 % asc Aorta Diam: 3.3 cm EPSS: 0.62 cm Ao Arch Diam (Prox Trans): 2.0 cm IVSd: 0.75 cm LVPWd: 0.85 cm LV slade. diameter/BSA (cm/m^2): 2.6 LV sys. diameter/BSA (cm/m^2): 1.9 LA A2 area: 12.9 cm2 RA long axis: 4.6 cm LA A4 area: 15.0 cm2 RA area: 11.9 cm2 LA length (vol): 4.4 cm RA vol: 26.2 ml LA vol: 37.1 ml RA : 15.8 ml/m2 LA vol index: 22.5 ml/m2 IVC diam: 1.3 cm RVD1 (basal): 2.8 cm RVD2 (mid): 2.5 cm TAPSE: 1.7 cm Doppler Measurements & Calculations Ao V2 max: 138.2 cm/sec LVOT Max Yusef: 93.5 cm/sec Ao V2 mean: 95.2 cm/sec LV V1 max P.5 mmHg Ao max P.6 mmHg LV V1 VTI: 21.4 cm Ao mean P.1 mmHg ROCAEL(I,D): 2.0 cm2 Ao V2 VTI: 32.2 cm ROCAEL(V,D): 2.0 cm2 sev ratio: 0.66 ROCAEL indexed to BSA (cm^2/m^2): 1.2 MV E max yusef: 73.0 cm/sec TR max yusef: 230.3 cm/sec MV A max yusef: 98.3 cm/sec TR max P.2 mmHg MV E/A: 0.74 PA V2 max: 79.5 cm/sec Med Peak E' Yusef: 4.4 cm/sec PA V2 mean: 62.3 cm/sec E/E' med: 16.5 PA mean P.7 mmHg Lat Peak E' Yusef: 5.9 cm/sec PA pr(Accel): 56.7 mmHg E/E' lat: 12.3 E/e' average: 14.4 MV dec time: 0.26 sec SV(OT): 64.5 ml Reading Physician:04:29 PM
--- NOTE | 2023-01-23 15:08 | DI.MRI.S_ITS ---
PROCEDURE: MR HEAD/BRAIN WO CON INDICATIONS: possible stroke TECHNIQUE: Non-contrast axial T1 spin echo, axial T2 fast spin echo, sagittal and axial FLAIR, coronal T2 fast spin echo, axial gradient echo, axial diffusion and ADC through the brain. COMPARISON: [facility], CT, CT HEAD/BRAIN WO CON, 01/23/2023, 14:09. [facility], CT, CT STROKE, 03/01/2022, 3:27. [facility], MR, MR HEAD/BRAIN WO/W CON, 02/28/2022, 13:08. [facility], CT, CT STROKE, 02/28/2022, 11:49. [facility], CT, CT ANGIO HEAD AND NECK, 02/28/2022, 11:49. [facility], MR, MR HEAD/BRAIN WO CON, 07/26/2020, 14:07. FINDINGS: Image quality: Excellent. CSF spaces: Ventricles appear symmetric in size and shape. Basal cisterns are patent. No extra-axial fluid collections. Brain: No intracranial bleeds or mass effects. There is cerebral volume loss for age. There are periventricular and deep white matter chronic small vessel ischemic changes. Brainstem appears normal. Diffusion-weighted images show no acute ischemic insults. No chronic ischemic insults. Normal intravascular flow voids are present. Skull and face: Calvarial bone marrow is normal in signal. Orbits are normal. Sinuses: Sinuses demonstrate minimal scattered mucosal thickening. Minimal fluid is present in the left mastoid air cells. IMPRESSION: 1. No acute intracranial process. No acute ischemia. 2. Mild atrophy and chronic microvascular ischemic changes. Dictated by: Consuelo Nieto M.D. on 01/24/2023 at 9:14 Approved by: Consuelo Nieto M.D. on 01/24/2023 at 9:15
[2023-01-23 15:13] LABS: COVID19 -Nasal RAPID Negative (Negative)
--- NOTE | 2023-01-23 15:15 | PM.HP.1 ---
History of Present Illness History of Present Illness Date Patient Seen: 01/23/23 Time Patient Seen: 16:23 Chief complaint: Thinks stroke Narrative: Molly Thrasher is an 82yo F with PMH of prior CVA 1 year ago, HTN, HLD, CKD, CAD s/p stent on DAPT, LEYDA, gout, and hypothryoidism who presents with sudden onset vision loss. Patient says she immediately lost vision in her right eye yesterday but only on the right side. She went to the shotgun shell assembly machine operator today who checked out her retinas which appeared normal and sent her to the ED for further workup due to concern for stroke. Patient denies any other neuro symptoms other than a headache. She denies history of migraines. She says she is a prediabetic and not on diabetes meds, but per her chart her last A1c last month was 7.4% which she was not aware of. She previously had a stroke 1 year ago at the same timeframe as her heart cath and stent placement. She has been on DAPT since then. She denies CP, NV, abd pain, dysuria or diarrhea. [facility] Medical History CVA (cerebral vascular accident) CVA (cerebral vascular accident) Ischemic heart disease due to coronary artery obstruction Obstructive sleep apnea Personality change Posterior vitreous detachment of right eye Presbyacusia Vaginal melanoma Surgical History H/O cardiac catheterization Family History Father CVA (cerebral vascular accident) CAD (coronary artery disease) Mother Congestive heart failure Social History household members: children Smoking Status: Never smoker alcohol intake: current Meds Home Medications and Allergies Home Medications Medication Instructions Recorded Confirmed Type Vitamin D + Calcium 1 tab PO DAILY 08/01/21 12/23/22 History aspirin 81 mg tablet,delayed 81 mg PO DAILY 08/01/21 12/23/22 History release (Adult Low Dose Aspirin) allopurinol 100 mg tablet 100 mg PO DAILY #90 tabs 02/01/22 12/23/22 Rx metoprolol succinate 50 mg 50 mg PO DAILY 06/27/22 12/23/22 History tablet,extended release 24 hr rosuvastatin 40 mg tablet 40 mg PO DAILY 06/27/22 12/23/22 History sennosides 8.6 mg tablet (senna) 17.2 mg PO DAILY #30 tabs 08/15/22 12/23/22 Rx clopidogrel 75 mg tablet 75 mg PO DAILY #90 tabs 10/29/22 12/23/22 Rx mirtazapine 15 mg tablet See Rx Instructions .Route 12/09/22 12/23/22 Rx .COMPLEX #30 tabs cyclobenzaprine 10 mg tablet 10 mg PO Q8H PRN muscle spasm #30 12/23/22 12/23/22 Rx tabs hydrochlorothiazide 25 mg tablet 25 mg PO QAM #90 tabs 12/23/22 12/23/22 Rx ibuprofen 800 mg tablet 800 mg PO Q8H PRN pain #30 tabs 12/23/22 12/23/22 Rx tramadol 50 mg tablet 50 mg PO Q8H PRN pain #30 tabs 12/23/22 12/23/22 Rx colchicine 0.6 mg tablet 0.6 mg PO DAILY #6 tabs 12/28/22 12/28/22 Rx ipratropium bromide 42 mcg (0.06 ml intranasal 12/28/22 12/28/22 History %) nasal spray levothyroxine 50 mcg tablet 50 mcg PO DAILY 12/30/22 12/30/22 History Allergies Allergy/AdvReac Type Severity Reaction Status Date / Time amoxicillin [From Augmentin] Allergy Intermediate nausea/vomi Verified 01/23/23 12:46 ting clavulanic acid Allergy Intermediate nausea/vomi Verified 01/23/23 12:46 [From Augmentin] ting Review of Systems Review of Systems Narrative: All other systems reviewed with the patient and are negative unless otherwise stated. Exam Vital Signs (past 8 hours): - 01/23/23 12:35 01/23/23 12:39 01/23/23 12:40 Temperature 99.1 F Pulse Rate 73 73 Respiratory Rate 16 Blood Pressure 169/78 H 169/78 H Pulse Oximetry 98 97 Oxygen Delivery Method Room Air 01/23/23 12:40 01/23/23 13:00 01/23/23 13:00 Temperature Pulse Rate 74 69 Respiratory Rate 20 Blood Pressure 131/63 Pulse Oximetry 98 97 Oxygen Delivery Method Room Air 01/23/23 13:30 01/23/23 14:00 Temperature Pulse Rate 69 68 Respiratory Rate 16 18 Blood Pressure Pulse Oximetry 97 97 Oxygen Delivery Method Oxygen Delivery Method Room Air Narrative Exam Narrative: GEN: no acute distress HEENT: moist mucous membranes, PERRL NECK: trachea midline, no JVD CV: regular rate and rhythm, no murmurs PULM: clear bilaterally ABD: soft, nontender, nondistended, no organomegaly EXT: warm and well perfused with no edema NEURO: awake, alert, oriented, loss of vision in right visual field of right eye, no other focal deficits Objective Labs 01/23/23 13:19 01/23/23 13:19 Labs: Laboratory Results - last 24 hr 01/23/23 01/23/23 01/23/23 13:19 13:19 14:45 WBC 8.6 RBC 3.82 L Hgb 11.5 L Hct 33.3 L MCV 87.3 MCH 30.2 MCHC 34.6 RDW 14.6 Plt Count 190 Neut % (Auto) 58.7 Lymph % (Auto) 32.0 Bell % (Auto) 7.2 Eos % (Auto) 1.2 L Baso % (Auto) 0.9 Neut # (Auto) 5100 Lymph # (Auto) 2800 Bell # (Auto) 600 Eos # (Auto) 100 Baso # (Auto) 100 Sodium 129 L Potassium 2.8 L Chloride 86 L Carbon Dioxide 32 BUN 19 H Creatinine 1.73 H Estimated GFR 29 L BUN/Creatinine Ratio 11.0 Glucose 196 H Calcium 9.6 Total Bilirubin 0.4 AST 24 ALT 18 Alkaline Phosphatase 114 Total Creatine Kinase 155 H CK-MB (CK-2) 0.61 CK-MB (CK-2) Rel Index 0.4 L Troponin I < 0.012 Total Protein 7.5 Albumin 4.2 Globulin 3.3 Albumin/Globulin Ratio 1.3 SARS-CoV-2 (PCR) Negative Assessment & Plan Assessment & Plan narrative: # possible acute stroke with sudden-onset right-sided hemianopsia -patient developed loss of vision in only right side of right eye -CT head negative, did not obtain CTA head due to CKD -MR brain ordered -echo normal without clot -continue DAPT -permissive HTN -tele # history of CVA in 2021 -had an ischemic stroke following heart cath 1 year ago -deficits included visual changes and motor weakness which have since resolved # CAD s/p stent in 2021 -underwent cath with stent placement 1 year ago -continue DAPT # hypokalemia -K 2.8 on admission -replete and monitor # hyponatremia -likely secondary to HCTZ, will stop -Na 129 on admission -NS at 125cc/hr -monitor # new-onset type 2 diabetes -not on meds as was previously prediabetic -last A1c however 7.4% in Nov 2022 -recheck A1c -diabetes education -low dose SSI # CKD -Cr at baseline -avoid nephrotoxic agents # hypertension -hold home HCTZ and metoprolol meds for 24 hours to allow permissive HTN # hyperlipidemia -continue statin # hypothyroidism -TSH normal -continue synthroid # gout -continue allopurinol # headache -tylenol and home tramadol PRN # insomnia and anxiety -continue home remeron Code status is full code. COVID negative. DVT prophylaxis with heparin subQ. Proxy is son García. I have reviewed home meds and used all available resources to reconcile the home meds. This patient will be admitted as observation and will require less than 2 midnights of hospital time to treat possible stroke.
--- NOTE | 2023-01-23 16:05 | OT.IPNOTE ---
Attempted OT eval, pt states would rather do it tomorrow morning as her eyes are still dialated. Able to get prior level of function. NO charge
[2023-01-23 16:15] LABS: Cholesterol 91 mg/dL (140-199); HDL Cholesterol 27 mg/dL (40-60); LDL Cholesterol Calculated -2 mg/dL (<100); Magnesium 1.8 mg/dL (1.6-2.3); Triglycerides 330 mg/dL (35-150)
--- NOTE | 2023-01-23 16:34 | PC.NURSE ---
pt has a stoma. self caths with 14f cath.
--- NOTE | 2023-01-23 16:40 | PT.IIE ---
Surgical History (Last Reviewed 01/23/23 @ 14:34 by Lucia Chanel DO) H/O cardiac catheterization Medical History (Last Reviewed 01/23/23 @ 14:34 by Lucia Chanel DO) CVA (cerebral vascular accident) CVA (cerebral vascular accident) Ischemic heart disease due to coronary artery obstruction Obstructive sleep apnea Personality change Posterior vitreous detachment of right eye Presbyacusia Vaginal melanoma Physical Therapy Inpatient Evaluation/Re-Eval M1 PT/OT-IP Prior Functional Status Start: 01/23/23 16:04 Freq: Status: Active Protocol: Document 01/23/23 16:36 [facility] (Rec[facility]23[facility]23 [id number] Medical Review Prior Functional Status Medical History Reviewed Yes Diet/Fluid Consistency Regular Communication WNL Mobility and Gait indep w/o AD Activities of Daily Living and IADL's indep w/all ADLs, cooks, cleans and drives Social History Household Members children Living Arrangements House Number of Floors (Floors) One Floor Number of Stairs To Enter/Railing? no DAMIÁN Home Environment Standard Height Toilet,Tub/ Shower Home Equipment Grab Bars In Shower Employment Status Retired M2 PT-IP Current Condition Start: 01/23/23 16:04 Freq: Status: Active Protocol: Document 01/23/23 16:36 [facility] (Rec: 01/23/23 16:48 [id number] Physical Therapy Current Condition Current Condition Evaluation Date 01/23/23 Treatment Diagnosis possible stroke, difficulty in walking M3 PT-IP Subjective Start: 01/23/23 16:04 Freq: Status: Active Protocol: Document 01/23/23 16:36 [facility] (Rec: 01/23/23 16:48 [facility] [id number]) Subjective Physical Therapy Visit Type Type Initial Evaluation Visit Start Time 16:04 Visit Stop Time 16:34 Total Visit Minutes 30 Number of ARTISTS' BOOKING REPRESENTATIVE Visits 0 Physical Therapy Visit Comments Patient Comments Pt reports she just feels a little off balance and has R visual field deficit Therapy Pain Assessment Pain When Pain Assessed During Mobility Pain Present Pain Present Pain Reported M4 PT-IP Mobility and Gait Start: 01/23/23 16:04 Freq: Status: Active Protocol: Document 01/23/23 16:36 [facility] (Rec: 01/23/23 16:48 [facility] [id number]) PT-Bed Mobility Assessment Supine to Sit Supine to Sit Standby Assistance Sit to Supine Sit to Supine Standby Assistance,Head of Bed Elevated Scooting Scooting to Edge of Bed Independent Scooting Up and Down in Bed Independent PT-Transfer Assessment Sit to and From Stand Sit to and from Stand Standby Assistance Equipment Transfer Assistive Device Gait Belt Orthotic/Prosthetic Devices or Brace: No Comments Mobility Comments supine to sit SBA then sit to stand sBA and pt amb CGA w/o AD. She amb 30 ft in room but did furniture walk. She then sat on bed and sit to supine w /HOB elvated d/t pt noting that makes her PALACIOS worse. Pt did supine to sit again from HOB elevated and amb 50ft w/o AD but held PT hand and did manual void indep and wiped indep then stood from toilet sba and washed hands SBA then amb to room 50ft SBA then got into bed SBA and sat EOB. Report given to RN Gait Assessment Gait Gait Assistance Required: Contact Guard Assist Distance (Feet) 130 Able to Maintain Weight Bearing Status No During Gait Assistive Devices Assistive Device Gait Belt Gait Deviations General Gait Pattern Decreased Stride Length, Decreased Feet Clearance, Flexed Trunk Factors Limiting Gait Function Factors Limiting Gait Function Poor Balance PT-Balance Assessment Sitting Balance and Reactions Static Sitting Balance Ability Good Dynamic Sitting Balance Ability Good Standing Balance and Reactions Static Standing Balance Ability Fair Dynamic Standing Balance Ability Fair M5 PT-IP Objective Assessments Start: 01/23/23 16:04 Freq: Status: Active Protocol: Document 01/23/23 16:36 [facility] (Rec: 01/23/23 16:48 [facility] [id number]) Orientation Orientation/Cognition Level of Alertness Alert Language Function Ability No Deficits Noted Safety Awareness Understands Safety Issues Memory Description No Deficits Noted Comments pt has R visual field deficit Gross Range of Motion Upper Extremity ROM Assessment Within Functional Limits Lower Extremity ROM Assessment Within Functional Limits Strength Lower Extremity Strength Assessment Within Functional Limits Hip grossly BLE 4+/5 M6 PT-IP Treatment Start: 01/23/23 16:04 Freq: Status: Active Protocol: Document 01/23/23 16:36 [facility] (Rec: 01/23/23 16:48 [facility] [id number]) Physical Therapy Treatment Education Education Provided Safety M7 PT-IP Assessment and Plan Start: 01/23/23 16:04 Freq: Status: Active Protocol: Document 01/23/23 16:36 [facility] (Rec: 01/23/23 16:48 [facility] [id number]) PT Summary Assessment and Plan Potential Rehabilitation Potential Good Status of Condition at Evaluation Evolving Summary Impairments Strength,Balance,Transfers, Gait,Activity Tolerance Assessment Summary Pt presented to ER w/R visual field deficit and feelign of imbalnce with current diagnosis possible CVA. She is able to track very little to the R before she loses ability to track w/eyes. She is unstable in gait and has to reach for PT or other supports . She woul benefit from training w/AD to help w/ stability and safety. Cont skilled PT to make pt safe for home environment. Goals Bed Mobility Goal Independent Transfer Goal Independent Gait Goal Independent Gait Distance 150ft Days to Meet Goals 5 Frequency of Treatment Frequency Of Treatment Once a Day Treatment Plan Physical Therapy Treatment Plan Bed Mobility Training,Transfer Training,Gait Training, Therapeutic Exercise,Balance Retraining,Discharge Planning, Neuromuscular Re-ed Recommendations To Nursing Amount of Assist Needed 1 Person Assist Discharge Recommendations PT Discharge Recommendations Home with Assistance, Outpatient PT Transportation Needs at Discharge Private Vehicle
[2023-01-23] MEDS: CLOPIDOGREL 75 MG TABLET PO (17:07)
[2023-01-23] MEDS: HEPARIN 5,000 UNIT/ML VIAL 5000 UNIT SUBCUT (17:08)
[2023-01-23] MEDS: INSULIN LISPRO 100 UNIT/ML 3ML VIAL SUBCUT (17:08)
[2023-01-23] MEDS: TRAMADOL 50 MG TABLET PO (17:11)
[2023-01-23] MEDS: SODIUM CHLORIDE 0.9% 1,000 ML 125 ML IV (17:15)
[2023-01-23 17:20] LABS: Amorphous Sediment Urine 1+; Bacteria Urine Many (>30); Culture Indicated Urine Specimen Cultured; RBC Urine 1-5/HPF (0-5/HPF); WBC Urine 1-5/HPF (0-5/HPF)
[2023-01-23] MEDS: CYCLOBENZAPRINE 10 MG TABLET PO (18:54)
[2023-01-23] MEDS: ATORVASTATIN 20 MG TABLET 80 MG PO (20:42)
[2023-01-23] MEDS: ACETAMINOPHEN 325 MG TABLET 650 MG PO (20:42)
[2023-01-23] MEDS: MELATONIN 3 MG TABLET 6 MG PO (20:43)
[2023-01-23] MEDS: MIRTAZAPINE 15 MG TABLET PO (20:43)
[2023-01-23] MEDS: OXYCODONE IR 5 MG TABLET PO (21:01)
[2023-01-24] MEDS: TRAMADOL 50 MG TABLET PO (01:07)
[2023-01-24] MEDS: SODIUM CHLORIDE 0.9% 1,000 ML 125 ML IV (01:59)
[2023-01-24] MEDS: ONDANSETRON 4 MG/2 ML INJ IV ×2 (03:21→12:15)
[2023-01-24] MEDS: LEVOTHYROXINE 50 MCG TABLET PO (05:15)
[2023-01-24] MEDS: ACETAMINOPHEN 325 MG TABLET 650 MG PO ×2 (05:20→11:16)
[2023-01-24] MEDS: CYCLOBENZAPRINE 10 MG TABLET PO (05:20)
[2023-01-24 05:41] VITALS: BP 125/55; PULSE 68; RESP 16; TEMP 36.3; O2SAT 93
[2023-01-24 05:49] LABS: Add Manual Diff / Slide Review NO; Basophils Absolute Auto 0 /uL (0-100); Basophils Percent Auto 0.6 % (0-2); Eosinophils Absolute Auto 0 /uL (0-450); Eosinophils Percent Auto 0.8 % (2-4); Hematocrit 28.7 % (36-46); Lymphocytes Absolute Auto 1800 /uL (1100-4500); Lymphocytes Percent Auto 32.1 % (25-40); Mean Corpuscular Hemoglobin 30.5 PG (26-34); Mean Corpuscular Volume 87.4 fL (80-100); Monocytes Absolute Auto 400 /uL (0-900); Monocytes Percent Auto 6.3 % (3-14); Neutrophils Absolute Auto 3400 /uL (1500-7000); Neutrophils Percent Auto 60.2 % (50-75); Platelet Count 165 X10^3/uL (150-400); Red Blood Cell Count 3.29 X10^6/uL (4.0-5.2); Red Cell Distribution Width 14.6 % (11.6-14.8); White Blood Cell Count 5.6 X10^3/uL (4.5-11.0)
[2023-01-24 05:54] LABS: BUN Creatinine Ratio 11.8 (6-22); Blood Urea Nitrogen 19 mg/dL (7-17); Calcium 8.6 mg/dL (8.4-10.2); Carbon Dioxide 27 mmol/L (22-32); Chloride 93 mmol/L (98-107); Estimated Glomerular Filt Rate 32 mL/min (>60); Glucose 157 mg/dL (80-110); HEMOLYSIS < 15 (0-50); Potassium 3.1 mmol/L (3.4-5.1); Sodium 128 mmol/L (137-145)
[2023-01-24] MEDS: CLOPIDOGREL 75 MG TABLET PO (08:37)
[2023-01-24] MEDS: POTASSIUM CHLORIDE 20 MEQ TAB 40 MEQ PO ×2 (08:38→11:18)
[2023-01-24] MEDS: allopurinoL 100 MG TABLET PO (08:38)
[2023-01-24] MEDS: HEPARIN 5,000 UNIT/ML VIAL 5000 UNIT SUBCUT (08:38)
[2023-01-24] MEDS: ASPIRIN EC 81 MG TABLET PO (08:38)
[2023-01-24] MEDS: INSULIN LISPRO 100 UNIT/ML 3ML VIAL SUBCUT ×2 (08:46→12:11)
--- NOTE | 2023-01-24 08:55 | OT.IP.EVAL ---
Past Medical History (Last Reviewed 01/23/23 @ 14:34 by Lucia Chanel DO) CVA (cerebral vascular accident) CVA (cerebral vascular accident) Ischemic heart disease due to coronary artery obstruction Obstructive sleep apnea Personality change Posterior vitreous detachment of right eye Presbyacusia Vaginal melanoma Surgical History (Last Reviewed 01/23/23 @ 14:34 by Luica Chanel DO) H/O cardiac catheterization Occupational Therapy Inpatient Evaluation/Re-Eval M1 PT/OT-IP Prior Functional Status Start: 01/24/23 10:20 Freq: NEEDED Status: Active Protocol: Document 01/24/23 08:55 [facility] (Rec: 01/24/23 10:45 [facility] [id number]) Medical Review Prior Functional Status Medical History Reviewed Yes Diet/Fluid Consistency Regular Communication WNL Mobility and Gait indep w/o AD Activities of Daily Living and IADL's indep w/all ADLs, cooks, cleans- pt's son assist for medication set-up, and bills Social History Household Members children Living Arrangements House Number of Floors (Floors) One Floor Number of Stairs To Enter/Railing? no DAMIÁN Home Environment Standard Height Toilet,Tub/ Shower Home Equipment Shower Seat without Backrest, Grab Bars In Shower Employment Status Retired Additional Social History Comment Pt son to stay home initially with the pt for the weekend and then possibly longer if needed. M2 OT-IP Current Condition Start: 01/24/23 10:20 Freq: Status: Active Protocol: Document 01/24/23 08:55 [facility] (Rec: 01/24/23 10:45 [facility] [id number]) Occupational Therapy Current Condition Current Condition Evaluation Date 01/24/23 Treatment Diagnosis Right heminopsia Diagnosis Onset Date 01/23/23 M3 OT- IP Subjective and Pain Start: 01/24/23 10:20 Freq: Status: Active Protocol: Document 01/24/23 08:55 [facility] (Rec: 01/24/23 10:45 [facility] [id number]) OT- Subjective Occupational Therapy Visit Type Type Initial Evaluation Visit Start Time 08:55 Visit Stop Time 09:18 Total Visit Minutes 23 Occupational Therapy Visit Comments Patient Comments Pt agreed to get up. Patient/Caregiver Goals To go home. OT Pain Assessment Pain When Pain Assessed At Rest Pain Present Pain Present Pain Reported M4 OT- IP ADL's Start: 01/24/23 10:20 Freq: Status: Active Protocol: Document 01/24/23 08:55 [facility] (Rec: 01/24/23 10:45 [facility] [id number]) OT [id number] Comments OT Self-Feeding Comments NO issues noted. OT ADL-Grooming Comments OT Grooming Comments Pt not wanting to perform at this time. OT ADL-Oral Care Comments Oral Care Comments Pt not wanting to perform at this time. OT ADL-Dressing General Eval Lower Body Dressing Ability Standby Assistance Comments OT Dressing Comments Pt able to jermain/doff her socks while seated. OT ADL-Toileting Comments OT Toileting Comments Pt states was just up on her feet and able to get to the bathroom and back on her own. OT ADL-Bathing Comments OT Bathing Comments Not performed. M5 OT- IP IADL's Start: 01/24/23 10:20 Freq: Status: Active Protocol: Document 01/24/23 08:55 [facility] (Rec: 01/24/23 10:45 [facility] [id number]) OT-Instrumental Activities of Daily Living Deficits IADL Deficits Identified Deficits Home Safety Awareness Awareness of Need for Assistance at Home Good Awareness Home Safety Comments Pt having increased visual deficits of right hemianopsia however just mildly with left eye. Medication Management Medication Management Caregiver Provides Supervision Medication Management Comments Son assist with set-up of medication needs. Money Management Money Management Caregiver Provides Assistance Meal Preparation Meal Preparation Caregiver Provides Assist Meal Preparation Comments Pt's son states that they will also assist for all meals initially as prior just helped pt with dinners when they got home from work. Scrap Handler Scrap Handler Caregiver Provides Assist M6 OT- IP Functional Cognition Start: 01/24/23 10:20 Freq: Status: Active Protocol: Document 01/24/23 08:55 [facility] (Rec: 01/24/23 10:45 [facility] [id number]) Cognitive Factors Limiting Selfcare Function Cognitive Ability Level of Alertness Alert Patient Orientation Name,Place,Situation Attention Span Ability Capable of Focused Attention, Capable of Sustained Attention Cognitive Comments Cognitive Assessment Comments Pt able to follow commands for ADl and mobility needs. OT- Vision and Hearing OT- Hearing Assessment OT- Hearing Assessment WFL OT- Vision Assessment Visual Acuity Glasses For Reading Visual Whiteside Impaired Visual Spacial Neglect Right Vision Assessment Comments Right eye much more prodominent than left eye. Pt also describes that her right eye is blurred has colorful visual movements on the right side of her right eye vision. Pt had right peripheral CVA 03/01/22 which per pt resulted in rigth visual deficits which eventually resolved for the most part. Pt also has a history of right eye posterior vitreous detachment and Meniere's which may be also affecting her vision as well. M7 OT- IP Mobility and Balance Start: 01/24/23 10:20 Freq: Status: Active Protocol: Document 01/24/23 08:55 [facility] (Rec: 01/24/23 10:45 [facility] [id number]) OT- Bed Mobility Assessment Supine to Sit Supine to Sit Assist Independent Sit to Supine Sit to Supine Assist Independent OT-Transfer Assessment Comments Mobility Comments Pt complaing on of being dizzy and not wanting to stand at this time. Pt states has Menieres and not wanting to get up at this time. OT- Balance Assessment Sitting Balance and Reactions Static Sitting Balance Ability Normal Dynamic Sitting Balance Ability Normal M8 OT- IP Objective Assessments Start: 01/24/23 10:20 Freq: Status: Active Protocol: Document 01/24/23 08:55 [facility] (Rec: 01/24/23 10:45 [facility] [id number]) OT Gross Range of Motion Upper Extremity Range of Motion Assessment Within Functional Limits OT Strength Upper Extremity Strength Assessment Within Functional Limits OT-Muscle Tone Assessment Muscle Tone WNL Yes M9 OT- IP Assessment and Plan Start: 01/24/23 10:20 Freq: Status: Active Protocol: Document 01/24/23 08:55 [facility] (Rec: 01/24/23 10:45 [facility] [id number]) OT Summary Assessment and Plan Potential Rehabilitation Potential Good Analytic Complexity at Evaluation Low Summary OT Impairments Balance,Functional Mobility, Dressing,Toileting,Bathing, Toilet Transfers,Shower Transfers Progress Towards Goals Progressing Toward Goals Assessment Summary Pt low complexity and here with increased right visual field deficits right eye much more than left and educating pt to turn her head to the right more so increase her visual field and to ensure not to bump into objects on the right. Pt has a very supportive son that will be able to assist pt at home and plans to take time off of work if needed. Pt's son states that they had all the equipment needs at home. Goals Grooming Goal Independent Dressing Goal Independent Toileting Goal Independent Bathing Goal Independent Toilet Transfer Goal Independent Shower Transfer Goal Independent OT-Other Goals Pt to be able to incorporate strategies to help compensate for her right visual field deficits. Days to Meet Goals 2 Frequency of Treatment Frequency Of Treatment Once a Day Treatment Plan OT Treatment Plan ADL Training,Functional Mobility,Vision Retraining Discharge Recommendations OT Discharge Recommendations Home with Assistance Transportation Needs at Discharge Private Vehicle
--- NOTE | 2023-01-24 10:52 | PT-IP ANOTE ---
Attempted to see pt, meeting with discharging planning at the time, will attempt again later.
[2023-01-24] MEDS: OXYCODONE IR 5 MG TABLET PO (11:18)
[2023-01-24] MEDS: SODIUM CHLORIDE 1,000 MG TABLET 1000 MG PO (11:18)
--- NOTE | 2023-01-24 11:44 | DIET.CONS ---
Addendum entered by Cyndi Campbell 01/24/23 13:23: RD agrees with pharmacist intern note. Original Note: Dietary Consultation Note Admission Date: 01/23/2023 16:31 Assessment: 82 y/o F with PMH of prior CVA 1 year ago, HTN, HLD, CKD, CAD s/p stent on DAPT, LEYDA, gout, and hypothryoidism who presents with sudden onset vision loss. RD consulted for new-onset T2DM (A1c 7.4%). Met pt at bedside along with son to discuss current diet and DM management. Pt reports no family history of DM and no previous DM nutrition education. Diet Recall: Wake: 8 am B: scrambled eggs (egg whites + 1 whole egg) OR cornflakes with sugar. S: (10 am) popcorn. S: (11-1 pm) bread with apple butter OR tomatoes OR ice cream. S: (before 5 pm) popcorn. D: (6 pm) chicken, potatoes, vegetables, sometimes rice (few Tbsp). S: (2 am) donuts and pepsi. Fluid: 6 cans Pepsi throughout day, 2 small cans tomato juice, ~1/4 cup water. Physical Activity: none. Barriers: pt is alone during the day and does not like to cook for one. Has tried discontinuing Pepsi in past which resulted in headaches (likely d/t caffeine). Pt does not like diet or zero sugar Pepsi. Pt reports having false teeth making raw crunchy vegetables difficult to eat. Family is aware of situation and supportive towards a diet change. Ht: 152.4 cm Wt: 68.039 kg BMI: 29.2 Last BM: 01/23/23 (01/23/23 18:09) MNA: 12 Harvey Score: 20 Diet: 01/23/23 Dinner Carbohydrate Consistent Diet Diet Modifications: Carbohydrate level: Medium (3 CHO) Bedtime snack: Yes Reflex DM orders: No Nutrition Percent Meal Consumed 75% 01/24/23 09:00 Percent Meal Consumed 100% 01/23/23 21:00 Percent Meal Consumed 50% 01/23/23 17:41 Labs: RBC 3.29 X10^6/uL (4.0-5.2) L 01/24/23 05:12 Hgb 10.0 g/dL (12.0-16.0) L 01/24/23 05:12 Hct 28.7 % (36-46) L 01/24/23 05:12 Creatinine 1.61 mg/dL (0.52-1.04) H 01/24/23 05:12 Nutrition Diagnosis: altered nutrition related laboratory value (A1c) r/t endocrine dysfunction aeb A1c 7.4%, diet recall suggesting high sugar intake, and no previous DM nutrition education. Interventions: 1. Educated pt on glucose and DM pathophysiology. 2. Discussed kidney health and diet changes to improve GFR. 3. Reviewed macronutrient impact on BG. 4. Per pt request, discussed what meals should ideally look like throughout day with pts preferences in mind. 5. Ultimately, recommended reducing or eliminating Pepsi and donut intake, and increasing water intake. 6. Suggested seeing DM educator as an outpatient prn to help support pt with current/future changes. Pt agreed to reducing Pepsi intake to 3 cans per day and increasing water with SF flavorings. Monitoring/Evaluations: consult RD prn. Electronically Signed by: Kym Enriquez 01/24/23 11:44 Clinical Dietitian [address] [id number]
--- NOTE | 2023-01-24 12:00 | CM.DANOTE ---
Patient is an 82 yo female who was admitted on 01/23/23 for Possible Stroke. Pt has MCR and LIFE and her PCP is Dr. Josh Feliciano. EMR was reviewed. Per MD, pt with a hx of CVA about a year ago and admitted for CVA r/o and vision changes. MRI negative for stroke, but shows retinal detachment and MD to start depakote for migraine symptoms. SW met bedside briefly with pt and adult son after [employer] met bedside with them and pt confirms she lives with adult son/DPROSIBEL Mariano still and his family and pt has continued to be independent with ADLs although they drive her to appointments sometimes. Pt denies any hx of SNF or HH and preference is home today with family if stable and does not anticipate any needs. Plan; SW to follow closely for plan of likely d/c home today via ramiro Mariano's POV and outpt f/u with Ct Scan Special Procedures Technologist and PCP. SW to follow for any further identified needs. VIELKA Bowens Discharge Planning/Care Management CM Discharge Assessment Start: 01/24/23 11:59 Freq: Status: Active Protocol: Document 01/24/23 11:59 BF (Rec: 01/24/23 12:00 BF [id number]) Discharge Planning Assessment Assigned Loss Control Engineer VIELKA Mcclain DPOA/Assigned Designee Name Ramiro Mariano Contact Information [phone] Advance Directives? Yes Advance Directives on File No History Provided By Patient,Family Member,Medical Record Has Patient been admitted in last 30 No days? Prior Living Arrangements House Household Members children Type of transporation used prior to Relies on Others admit Independent with ADL's Yes Is patient alert and oriented? Yes Needs Assistance With Home Chores / Shopping Caregiver for Another No DME Already Rented / Owned FWW / Walker Patient/Family Preference OP PT Therapy Barriers to Discharge No Comment Home w/family, patient would like to return home today Discharge Plan Home Transportation Arrangement Family Referrals Initiated None needed Whiteboard Updated in Patient Room with Yes name and ext. # of Loss Control Engineer Review Status In Process Please Provide Date Initial DC 01/24/23 Assessment Was Performed Next Review Type Continued Stay Review
[2023-01-24] MEDS: VALPROIC ACID 1,000 MG in DEXTROSE 5 % IN WATER 50 ML 60 MG IV (12:11)
--- NOTE | 2023-01-24 12:23 | PT-IP ANOTE ---
DIRECTOR OF COUNTERINTELLIGENCE in to see pt, pt reports she is feeling nauseous at this time and will receive shot of new medication soon, refusing at this time.
[2023-01-24 12:42] VITALS: BP 136/62; PULSE 73; RESP 18; TEMP 36.5; O2SAT 96
--- NOTE | 2023-01-24 14:18 | PM.DS.1 ---
History of Present Illness History of Present Illness Date Patient Seen: 01/24/23 Time Patient Seen: 14:18 Chief complaint: Thinks stroke Narrative: Molly Thrasher is an 82yo F with PMH of prior CVA 1 year ago, HTN, HLD, CKD, CAD s/p stent on DAPT, LEYDA, gout, and hypothryoidism who presents with sudden onset vision loss. Patient says she immediately lost vision in her right eye yesterday but only on the right side. She went to the payment manager today who checked out her retinas which appeared normal and sent her to the ED for further workup due to concern for stroke. Patient denies any other neuro symptoms other than a headache. She denies history of migraines. She says she is a prediabetic and not on diabetes meds, but per her chart her last A1c last month was 7.4% which she was not aware of. She previously had a stroke 1 year ago at the same timeframe as her heart cath and stent placement. She has been on DAPT since then. She denies CP, NV, abd pain, dysuria or diarrhea. Discharge Providers Provider Date of admission: 01/23/23 16:31 Discharge Date: 01/24/23 Primary care physician: Josh Feliciano MD Consults: 01/23/23 17:54 Consult to Dietitian, Adult Routine Comment: Reason For Exam: new-onset diabetes 01/23/23 18:14 Consult to Occupational Therapy Evaluate & Treat Comment: Physician Instructions: Evaluate and treat Consult to Physical Therapy Evaluate & Treat Comment: Physician Instructions: Evaluate and Treat Discharge provider: Juanito Mejias DO Summary Hospital Course Discharge Diagnosis: # acute stroke ruled out, with sudden-onset right-sided hemianopsia -patient developed loss of vision in only right side of right eye -CT head negative, did not obtain CTA head due to CKD -MR brain normal -echo normal without clot -continue DAPT -should see ophthalmology as outpatient for further workup of her eye # migraine -patient noted headaches for some time and active headache while in the hospital -gave 1g depakote IV which immediately took away migraine, but did not change vision loss -discharged on po depakote ER daily for migraine prevention # history of CVA in 2021 -had an ischemic stroke following heart cath 1 year ago -deficits included visual changes and motor weakness which have since resolved # CAD s/p stent in 2021 -underwent cath with stent placement 1 year ago -continue DAPT # hypokalemia -K 2.8 on admission, repleted -mag 1.8 - monitor # hyponatremia -likely secondary to HCTZ, will stop -Na 129 on admission, 128 the next day -stopped HCTZ on discharge -monitor # new-onset type 2 diabetes -not on meds as was previously prediabetic -last A1c however 7.4% in Nov 2022 -recheck A1c pending -diabetes education -low dose SSI -discharged on metformin 500mg BID # CKD -Cr at baseline # hypertension -changed HCTZ to losartan on discharge which she should also be on for CKD # hyperlipidemia -continue statin # hypothyroidism -TSH normal -continue synthroid # gout -continue allopurinol # headache -tylenol and home tramadol PRN # insomnia and anxiety -continue home remeron Hospital Course: Admitted for sudden right sided right eye vision loss. MRI negative for stroke. Also had a headache to thought migraine may be contributing. Gave 1g IV depakote which immediately improved the headache, but no the vision loss. Discharged on daily migraine prophylaxis with depakote ER and recommend she f/u with eye doctor to have her eyes assessed further. Also started on metformin for diabetes with A1c last month of 7.4%. Changed HCTZ to losartan on dc due to hyponatremia of 128-129. Time Spent with Patient Time spent: Greater than 30 minutes Exam Vital Signs (past 8 hours): Oxygen Delivery Method Room Air Oxygen Flow Rate 0 Narrative Exam Narrative: GEN: no acute distress, has a headache HEENT: moist mucous membranes, PERRL NECK: trachea midline, no JVD CV: regular rate and rhythm, no murmurs PULM: clear bilaterally ABD: soft, nontender, nondistended, no organomegaly EXT: warm and well perfused with no edema NEURO: awake, alert, oriented, loss of vision in right visual field of right eye, no other focal deficits Objective Labs 01/24/23 05:12 01/24/23 05:12 Labs: Laboratory Results - last 24 hr 01/23/23 01/23/23 01/23/23 13:19 13:19 13:19 WBC RBC Hgb Hct MCV MCH MCHC RDW Plt Count Neut % (Auto) Lymph % (Auto) [place] % (Auto) Eos % (Auto) Baso % (Auto) Neut # (Auto) Lymph # (Auto) [place] # (Auto) Eos # (Auto) Baso # (Auto) Sodium Potassium Chloride Carbon Dioxide BUN Creatinine Estimated GFR BUN/Creatinine Ratio Glucose Calcium Magnesium 1.8 Triglycerides 330 H Cholesterol 91 L LDL Cholesterol, Calc -2 HDL Cholesterol 27 L TSH 2.00 Urine RBC Urine WBC Amorphous Sediment Urine Bacteria Ur Culture Indicated? SARS-CoV-2 (PCR) 01/23/23 01/23/23 01/24/23 14:45 16:35 05:12 WBC 5.6 RBC 3.29 L Hgb 10.0 L Hct 28.7 L MCV 87.4 MCH 30.5 MCHC 35.0 RDW 14.6 Plt Count 165 Neut % (Auto) 60.2 Lymph % (Auto) 32.1 [place] % (Auto) 6.3 Eos % (Auto) 0.8 L Baso % (Auto) 0.6 Neut # (Auto) 3400 Lymph # (Auto) 1800 [place] # (Auto) 400 Eos # (Auto) 0 Baso # (Auto) 0 Sodium Potassium Chloride Carbon Dioxide BUN Creatinine Estimated GFR BUN/Creatinine Ratio Glucose Calcium Magnesium Triglycerides Cholesterol LDL Cholesterol, Calc HDL Cholesterol TSH Urine RBC 1-5/hpf Urine WBC 1-5/hpf Amorphous Sediment 1+ Urine Bacteria Many (>30) H Ur Culture Indicated? Specimen cultured SARS-CoV-2 (PCR) Negative 01/24/23 05:12 WBC RBC Hgb Hct MCV MCH MCHC RDW Plt Count Neut % (Auto) Lymph % (Auto) [place] % (Auto) Eos % (Auto) Baso % (Auto) Neut # (Auto) Lymph # (Auto) [place] # (Auto) Eos # (Auto) Baso # (Auto) Sodium 128 L Potassium 3.1 L Chloride 93 L Carbon Dioxide 27 BUN 19 H Creatinine 1.61 H Estimated GFR 32 L BUN/Creatinine Ratio 11.8 Glucose 157 H Calcium 8.6 Magnesium Triglycerides Cholesterol LDL Cholesterol, Calc HDL Cholesterol TSH Urine RBC Urine WBC Amorphous Sediment Urine Bacteria Ur Culture Indicated? SARS-CoV-2 (PCR) [facility] Medical History CVA (cerebral vascular accident) CVA (cerebral vascular accident) Ischemic heart disease due to coronary artery obstruction Obstructive sleep apnea Personality change Posterior vitreous detachment of right eye Presbyacusia Vaginal melanoma Surgical History H/O cardiac catheterization Family History Father CVA (cerebral vascular accident) CAD (coronary artery disease) Mother Congestive heart failure Social History household members: children Smoking Status: Never smoker alcohol intake: current Discharge Plan Discharge Plan Patient Disposition: Home Provider Discharge Comment: You were admitted for vision loss with concern for stroke. MRI was negative for stroke however, so I suspected it may have been migraine related as you had a headache during your admission. I gave you a dose of IV depakote which took your migraine away and have sent oral depakote to take daily for migraine prevention. It didn't however take away your vision loss so you may need to see an quality control engineering technician to have your eyes assessed further. I've started you on metformin for you diabetes. I've also changed your blood pressure meds from HCTZ to losartan because you had low sodium levels which HCTZ can cause. Discharge orders & Medications Prescriptions: New divalproex [Depakote ER] 500 mg tablet extended release 24 hr 500 mg PO DAILY Qty: 30 0RF metformin 500 mg tablet 500 mg PO BIDWMEAL Qty: 60 0RF losartan 25 mg tablet 25 mg PO DAILY Qty: 30 0RF Continued allopurinol 100 mg tablet 100 mg PO DAILY Qty: 90 3RF clopidogrel 75 mg tablet 75 mg PO DAILY Qty: 90 0RF Rx Instructions: PLEASE KEEP FE APPT FOR CONT'D FILLS. THANK YOU 10/29/22. mirtazapine 15 mg tablet See Rx Instructions .ROUTE .COMPLEX Qty: 30 0RF Dose Instruction: TAKE 1 TABLET BY MOUTH AT BEDTIME Rx Instructions: TAKE 1 TABLET BY MOUTH AT BEDTIME aspirin [Adult Low Dose Aspirin] 81 mg tablet,delayed release (DR/EC) 81 mg PO DAILY Vitamin D + Calcium 1 tab PO DAILY Rx Instructions: Vitamin D = 1000 Calcium = 1200 metoprolol succinate 50 mg tablet extended release 24 hr 50 mg PO DAILY rosuvastatin 40 mg tablet 40 mg PO DAILY tramadol 50 mg tablet 50 mg PO Q8H PRN (Reason: pain) Qty: 30 0RF levothyroxine 50 mcg tablet 50 mcg PO DAILY Follow up/Referrals: Josh Feliciano MD [Primary Care Provider] - 2 Weeks Visit Report/Discharge Packet Stand Alone Forms: Patient Portal/API, Stroke Signs & Symptoms Discharge Data Primary Care Provider: Josh Feliciano Attending Provider: Juanito Mejias Admit Date/Time: 01/23/23 16:31 Quality VTE Deep Vein Thrombosis/Pulmonary Embolism Present on Admission: No
== END 2023-01-24 15:35 | disposition home or self-care (01) ==
LOC: ED 15:12 → AC 16:33
PROVIDERS: Admitting Provider Student in an Organized Health Care Education/Training Program; Emergency Provider Emergency Medicine; Family Provider Student in an Organized Health Care Education/Training Program; PCP Student in an Organized Health Care Education/Training Program; Referring Provider Emergency Medicine; Visit Provider Student in an Organized Health Care Education/Training Program
DX: H53.8 Other visual disturbances (principal); R29.701 NIHSS score 1; I10 Essential (primary) hypertension; Z86.73 Personal history of transient ischemic attack (TIA), and cerebral infarction without residual deficits; G47.33 Obstructive sleep apnea (adult) (pediatric); E11.22 Type 2 diabetes mellitus with diabetic chronic kidney disease; I12.9 Hypertensive chronic kidney disease with stage 1 through stage 4 chronic kidney disease, or unspecified chronic kidney disease; N18.9 Chronic kidney disease, unspecified; G43.909 Migraine, unspecified, not intractable, without status migrainosus; I25.10 Atherosclerotic heart disease of native coronary artery without angina pectoris; E87.6 Hypokalemia; E87.1 Hypo-osmolality and hyponatremia; E03.9 Hypothyroidism, unspecified; F41.9 Anxiety disorder, unspecified; G47.00 Insomnia, unspecified; Z95.818 Presence of other cardiac implants and grafts; Z20.822 Contact with and (suspected) exposure to COVID-19
CPT/HCPCS: 36415; 70450; 70551; 80048; 80053; 80061; 81003; 81015; 82550; 82553; 82962; 83036; 83735; 84443; 84484; 85025; 87077; 87086; 87186; 87635; 93005; 93306; 96361; 96372; 96374; 96376; 97116; 97162; 97165; 99285; C9803; G0378; J1644; J1815; J2405

== ENCOUNTER → 2023-02-28 08:29 | Outpatient (CLI) | payer MEDICARE, OTHER, SELFPAY ==
[2023-01-24 15:10] VITALS: BMI 29.2
[2023-02-28 09:25] LABS: Appearance Urine UA CLEAR; Bilirubin Urine UA NEGATIVE (NEGATIVE); Color Urine UA YELLOW; Glucose Urine UA NEGATIVE (Negative); Ketones Urine UA NEGATIVE (NEGATIVE); Leukocyte Esterase Urine UA TRACE (NEGATIVE); Nitrite Urine UA POSITIVE (Negative); Occult Blood Urine UA TRACE-INTACT (Negative); Protein Urine UA 1+ (Negative); Urobilinogen Urine UA 0.2 E.U./dL (0.2)
[2023-02-28 09:35] LABS: Bacteria Urine Many (>30); Culture Indicated Urine Specimen Cultured; RBC Urine 0-1/HPF (0-5/HPF); Squamous Epithelial Cell Urine 0-1 /HPF (0-5/HPF); WBC Urine 30-100/HPF (0-5/HPF)
[2023-02-28 09:46] LABS: BUN Creatinine Ratio 13.3 (6-22); Blood Urea Nitrogen 20 mg/dL (7-17); Calcium 9.1 mg/dL (8.4-10.2); Carbon Dioxide 27 mmol/L (22-32); Chloride 106 mmol/L (98-107); Estimated Glomerular Filt Rate 35 mL/min (>60); Glucose 132 mg/dL (80-110); HEMOLYSIS < 15 (0-50); Potassium 4.1 mmol/L (3.4-5.1); Sodium 141 mmol/L (137-145)
[2023-02-28 10:08] LABS: Microalbumin Urine Random 25.9 mg/dL (0-1.6)
[2023-03-02 07:07] LABS: Valproic Acid (Depakene) Total 4 ug/mL (50-100)
[2023-03-03 08:49] LABS: Fructosamine 267 umol/L (0-285)
[2023-03-04 04:38] LABS: Cystatin C 1.76 mg/L (0.87-1.12)
== END ==
PROVIDERS: Family Provider Student in an Organized Health Care Education/Training Program; PCP Student in an Organized Health Care Education/Training Program; Referring Provider Student in an Organized Health Care Education/Training Program; Visit Provider Student in an Organized Health Care Education/Training Program
DX: N18.32 Chronic kidney disease, stage 3b (principal); Z79.899 Other long term (current) drug therapy; N17.9 Acute kidney failure, unspecified; E11.9 Type 2 diabetes mellitus without complications; I10 Essential (primary) hypertension
CPT/HCPCS: 36415; 80048; 80164; 81001; 82043; 82570; 82610; 82985; 87077; 87086; 87186

== ENCOUNTER → 2023-03-28 13:08 | Outpatient (CLI) | payer MEDICARE, OTHER, SELFPAY ==
[2023-01-24 15:10] VITALS: BMI 29.2
--- NOTE | 2023-03-28 14:21 | DIAB.MNT ---
Initial Diabetes Medical Nutrition Therapy Assessment Name: Molly Thrasher Date: 03/28/23 Time: 2-3:15p Dx: Type II Diabetes Provider: Jodie Barnes presents for initial visit regarding T2DM with family member, Porsche. States she was unaware she had DM until recently with hgA1c of 8%. Not currently taking any DM medications. Originally started on Metformin, however this was discontinued due to kidney function. Molly expresses hope to avoid insulin therapy if possible. Provider referred pt for DM education also for BG assessment. Per notes, fructosamine, HgA1c, and SMBG are not consistent. Rule out lows and evaluate hyperglycemia. Molly would like to trial Dexcom G6 today. Diet Recall: 9a; 2c popcorn with butter OR eggs and [place] OR half bun egg cheese mcmuffin OR 1c oats with 2 tsp sugar and milk 12p: eggs or popcorn sn: nothing ro 1-2 mini donuts with 8oz milk 6p: 1.5-1c pasta with meat sauce and 1 piece garlic bread OR pork chops with non starch veg 11:30p: 1-2 mini donuts with pepsi Beverages; 6-10 cans pepsi, milk, water States she loves sugar, butter and bread. main concern is beverage choices. Porsche reports she has been trying to help Molly switch to SF options for years. Anthropometrics: Ht: 5' Wt: 161.5# (02/2023 last PCP visit) Physical Activity: None. Reduced activity since back sx in 2018. Self-Monitoring Blood Glucose: None currently. Stopped checking after last PCP visit. Per provider notes BG were in the 200s. She reports frequent readings under 150 mg/dl. 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 Provided appropriate educational handouts. Discussed the following topics: Completed intake assessment. Pathophysiology of T2DM in brief HgA1c, its correlation to blood glucose numbers, and rationale for goal Importance of self-monitoring, how often, and when to check. Suggested checking at different times to evaluate meals impact of macronutrients on blood sugar Impact of sugar beverages on BG Recommended servings for carbohydrates at meals and snacks Role of physical activity and hydration and following provider guidelines for safety Created SMART goals for patient self-care and success. Goals: Aim for 3 sugar beverages per day or less ADA BG goals: FB-130 (at least under 150) and postprandial <180 If elevated, drink water and try to incorporate some movement Follow-up: TISHA ROWELL follow-up in [address] see [address] Yeepz at the end of the month. Will provide BG evaluation to provider prior to this visit. Cyndi Campbell RDN, [facility] Certified Diabetes Care and [place] P: [phone] Thank you for this referral
[2023-03-29 05:29] LABS: Valproic Acid (Depakene) Total 55 ug/mL (50-100)
== END ==
PROVIDERS: Absent Provider Student in an Organized Health Care Education/Training Program; Family Provider Student in an Organized Health Care Education/Training Program; PCP Student in an Organized Health Care Education/Training Program; Referring Provider Student in an Organized Health Care Education/Training Program; Visit Provider Student in an Organized Health Care Education/Training Program
DX: Z51.81 Encounter for therapeutic drug level monitoring (principal); E11.9 Type 2 diabetes mellitus without complications; Z71.3 Dietary counseling and surveillance
CPT/HCPCS: 36415; 80164; 97802

== ENCOUNTER → 2023-04-11 12:26 | Outpatient (CLI) | payer MEDICARE, OTHER, SELFPAY ==
[2023-01-24 15:10] VITALS: BMI 29.2
== END ==
PROVIDERS: Family Provider Student in an Organized Health Care Education/Training Program; PCP Student in an Organized Health Care Education/Training Program; Referring Provider Student in an Organized Health Care Education/Training Program; Visit Provider Student in an Organized Health Care Education/Training Program
DX: E11.9 Type 2 diabetes mellitus without complications (principal); Z71.3 Dietary counseling and surveillance
CPT/HCPCS: 97803

== ENCOUNTER → 2023-04-18 08:26 | Outpatient (CLI) | payer MEDICARE, OTHER, SELFPAY ==
[2023-01-24 15:10] VITALS: BMI 29.2
[2023-04-18 14:15] LABS: Appearance Urine UA CLEAR; Bilirubin Urine UA NEGATIVE (NEGATIVE); Color Urine UA YELLOW; Glucose Urine UA NEGATIVE (Negative); Ketones Urine UA NEGATIVE (NEGATIVE); Leukocyte Esterase Urine UA 1+ (NEGATIVE); Nitrite Urine UA POSITIVE (Negative); Occult Blood Urine UA 1+ (Negative); Protein Urine UA 1+ (Negative); Urobilinogen Urine UA 0.2 E.U./dL (0.2)
[2023-04-18 14:39] LABS: Bacteria Urine Many (>30); Culture Indicated Urine Specimen Cultured; RBC Urine 1-5/HPF (0-5/HPF); Squamous Epithelial Cell Urine 0-1 /HPF (0-5/HPF); WBC Urine 30-100/HPF (0-5/HPF)
[2023-04-19 06:41] LABS: Labcorp Hemoglobin (Hb) A1c 8.4 % (4.8-5.6)
== END ==
PROVIDERS: Family Provider Student in an Organized Health Care Education/Training Program; PCP Pediatrics; Referring Provider Pediatrics; Visit Provider Pediatrics
DX: E11.9 Type 2 diabetes mellitus without complications (principal); R30.0 Dysuria
CPT/HCPCS: 36415; 81001; 83036; 87077; 87086; 87186

== ENCOUNTER → 2023-05-09 12:01 | Outpatient (CLI) | payer MEDICARE, OTHER, SELFPAY ==
[2023-01-24 15:10] VITALS: BMI 29.2
--- NOTE | 2023-05-09 12:03 | DI.MRI.S_ITS ---
PROCEDURE: MR LUMBAR SPINE WO CON INDICATIONS: Spinal stenosis, lumbar region TECHNIQUE: Noncontrast sagittal T1 spin echo and T2 fast echo, sagittal STIR, and T2 fast spin echo through the lumbar spine. In cases with scoliosis, additional coronal T2 fast spin echo may be performed. COMPARISON: [facility], MR, MR LUMBAR SPINE WO CON, 04/12/2020, 16:29. FINDINGS: Image quality: Excellent. Alignment and Curvature: Mild straightening of normal lumbar lordosis. No spondylolisthesis.. Bone Marrow: Postsurgical changes from L4-5 posterior spinal fusion and discectomy. Marrow is otherwise of normal overall signal. No acute vertebral body compression fractures. Spinal Cord: Conus medullaris terminates at the L1 level. Visualized cord demonstrates normal signal and size. Paraspinous Soft Tissues: Increased size of right renal cyst measuring 3.1 x 2.6 cm and now demonstrating fluid fluid levels, previously measuring 1.8 cm. Small left renal exophytic simple cyst. T12-L1: Disc desiccation, small posterior disc bulge and facet arthropathy. No significant central canal or neural foraminal stenosis. L1-L2: Disc desiccation, small posterior disc bulge, facet arthropathy and thickening ligamentum flavum resulting in mild central canal narrowing. No neural foraminal stenosis. L2-L3: Disc desiccation, small posterior disc bulge, facet arthropathy and thickening ligamentum flavum resulting in mild central canal stenosis. No neural foraminal stenosis. L3-L4: Disc desiccation, posterior disc bulge, facet arthropathy and thickening of the ligamentum flavum resulting in mild to moderate central canal stenosis. No neural foraminal stenosis. L4-L5: Postoperative changes are present at this level with a disc spacer in place. There is facet arthropathy. There is mild central canal stenosis. There is mild bilateral neural foraminal narrowing. L5-S1: Facet arthropathy and thickening ligamentum flavum. There is mild central canal stenosis. There is mild right and moderate left neural foraminal stenosis. IMPRESSION: 1. Postoperative changes from L4-L5 discectomy and posterior fusion. 2. Mild degenerative changes of the lumbar spine as described above. Central canal stenosis is worse at L3-L4 with mild to moderate narrowing. Neural foraminal stenosis is worse at L5-S1 with moderate left neural foraminal stenosis. 3. Increased size of right renal cyst with new fluid fluid levels measuring up to 3.1 cm, previously 1.8 cm. No definite solid component is seen. Given increase, further evaluation ultrasound is recommended. Dictated by: Eddie Matthew M.D. on 05/09/2023 at 13:21 Approved by: Eddie Matthew M.D. on 05/09/2023 at 13:48
== END ==
PROVIDERS: Family Provider Student in an Organized Health Care Education/Training Program; PCP Pediatrics; Referring Provider Orthopaedic Surgery Orthopaedic Surgery of the Spine; Visit Provider Orthopaedic Surgery Orthopaedic Surgery of the Spine
DX: M48.062 Spinal stenosis, lumbar region with neurogenic claudication (principal); M47.816 Spondylosis without myelopathy or radiculopathy, lumbar region; M47.817 Spondylosis without myelopathy or radiculopathy, lumbosacral region; M48.07 Spinal stenosis, lumbosacral region; N28.1 Cyst of kidney, acquired; Z98.1 Arthrodesis status
CPT/HCPCS: 72148

== ENCOUNTER → 2023-05-16 09:29 | Outpatient (CLI) | payer MEDICARE, OTHER, SELFPAY ==
[2023-01-24 15:10] VITALS: BMI 29.2
[2023-05-16 11:48] LABS: Appearance Urine UA CLOUDY; Bilirubin Urine UA NEGATIVE (NEGATIVE); Color Urine UA YELLOW; Glucose Urine UA NEGATIVE (Negative); Ketones Urine UA NEGATIVE (NEGATIVE); Leukocyte Esterase Urine UA 2+ (NEGATIVE); Nitrite Urine UA POSITIVE (Negative); Occult Blood Urine UA 2+ (Negative); Protein Urine UA 2+ (Negative); Specific Gravity Urine UA 1.015 (1.000-1.035); Urobilinogen Urine UA 0.2 E.U./dL (0.2)
[2023-05-16 11:55] LABS: pH Urine UA 6.5 (4.5-8.0)
[2023-05-16 12:05] LABS: Bacteria Urine Many (>30); Culture Indicated Urine Specimen Cultured; RBC Urine 5-10/HPF (0-5/HPF); Squamous Epithelial Cell Urine 0-1 /HPF (0-5/HPF); WBC Urine >100/HPF (0-5/HPF)
== END ==
PROVIDERS: Family Provider Student in an Organized Health Care Education/Training Program; PCP Pediatrics; Referring Provider Pediatrics; Visit Provider Pediatrics
DX: N39.0 Urinary tract infection, site not specified (principal); R30.0 Dysuria
CPT/HCPCS: 81001; 87077; 87086; 87186

== ENCOUNTER → 2023-08-05 13:06 | Outpatient (CLI) | payer MEDICARE, OTHER, SELFPAY ==
[2023-01-24 15:10] VITALS: BMI 29.2
[2023-08-05 14:32] LABS: Add Manual Diff / Slide Review NO; Basophils Absolute Auto 0 /uL (0-100); Basophils Percent Auto 0.6 % (0-2); Eosinophils Absolute Auto 100 /uL (0-450); Eosinophils Percent Auto 1.3 % (2-4); Hematocrit 31.3 % (36-46); Hemoglobin 10.6 g/dL (12.0-16.0); Lymphocytes Absolute Auto 2200 /uL (1100-4500); Lymphocytes Percent Auto 33.6 % (25-40); Mean Corpuscular Hemoglobin 30.6 PG (26-34); Mean Corpuscular Volume 89.9 fL (80-100); Monocytes Absolute Auto 500 /uL (0-900); Monocytes Percent Auto 7.9 % (3-14); Neutrophils Absolute Auto 3700 /uL (1500-7000); Neutrophils Percent Auto 56.6 % (50-75); Platelet Count 173 X10^3/uL (150-400); Red Blood Cell Count 3.48 X10^6/uL (4.0-5.2); Red Cell Distribution Width 14.7 % (11.6-14.8); White Blood Cell Count 6.6 X10^3/uL (4.5-11.0)
[2023-08-05 14:45] LABS: Hemoglobin A1C% w Est Avg Glu 8.4 % (4.0-6.0)
[2023-08-05 15:00] LABS: Alanine Aminotransferase 22 IU/L (<35); Albumin 3.6 g/dL (3.5-5.0); Albumin Globulin Ratio 1.2 (1.0-2.8); Alkaline Phosphatase 122 U/L (38-126); Aspartate Aminotransferase 21 IU/L (14-36); BUN Creatinine Ratio 8.8 (6-22); Bilirubin Total 0.5 mg/dL (0.2-1.3); Blood Urea Nitrogen 16 mg/dL (7-17); Calcium 9.6 mg/dL (8.4-10.2); Carbon Dioxide 22 mmol/L (22-32); Chloride 106 mmol/L (98-107); Estimated Glomerular Filt Rate 28 mL/min (>60); Globulin 2.9 g/dL (1.7-4.1); Glucose 282 mg/dL (80-110); HEMOLYSIS < 15 (0-50); Sodium 138 mmol/L (137-145); Total Protein 6.5 g/dL (6.3-8.2)
[2023-08-05 15:23] LABS: Microalbumi Creatinin Ratio Ur 250.6 ug/mg CR (<30); Microalbumin Urine Random 18.3 mg/dL (0-1.6)
== END ==
PROVIDERS: Family Provider Student in an Organized Health Care Education/Training Program; PCP Family Medicine; Referring Provider Family Medicine; Visit Provider Family Medicine
DX: D64.9 Anemia, unspecified (principal); E11.9 Type 2 diabetes mellitus without complications; I10 Essential (primary) hypertension; R80.9 Proteinuria, unspecified; E03.9 Hypothyroidism, unspecified
CPT/HCPCS: 36415; 80053; 82043; 82570; 83036; 84443; 85025

== ENCOUNTER 2023-12-19 12:01 | Emergency (ER) | payer MEDICARE, OTHER, SELFPAY ==
[2023-01-24 15:10] VITALS: BMI 29.2
[2023-12-19] VITALS (57 sets, daily range): BP systolic 97–144; BP diastolic 51–68; PULSE 56–74; RESP 10–29; TEMP 36.5; O2SAT 93–100; BMI 32.0
--- NOTE | 2023-12-19 12:02 | DI.RAD.S_ITS ---
PROCEDURE: XR CHEST 1V INDICATIONS: chest pain TECHNIQUE: One view of the chest was acquired. COMPARISON: [facility], CR, XR CHEST 1V, 08/14/2022, 8:10. FINDINGS: Surgical changes and devices: None. Lungs and pleura: Lungs are clear on the right but there appears to be mild or early pneumonia at the left lower lobe both behind the left ventricular margin and lateral to the left ventricular apex.. No pleural effusions or pneumothorax. Mediastinum: Mediastinal contours appear normal. Heart size is normal. Bones and chest wall: No suspicious bony lesions. Overlying soft tissues appear unremarkable. IMPRESSION: Mild or early pneumonia left lower lobe. No pleural effusion seen. Dictated by: Murphy Álvarez M.D. on 12/19/2023 at 13:04 Approved by: Murphy Álvarez M.D. on 12/19/2023 at 13:05
--- NOTE | 2023-12-19 12:18 | ED.CHESTPAIN ---
HPI - Chest Pain <Lucia Chanel, DO - Last Filed: 01/05/24 20:47> General Chief Complaint: Chest Pain Stated Complaint: Chest Pain Time Seen by Provider: 12/19/23 12:18 Source: patient and EMS Mode of arrival: EMS Limitations: no limitations History of Present Illness HPI narrative: Patient is a 83-year-old female history of coronary artery disease with stent, CVA, diabetes presenting today with chest pain. She reports that she was at a friend's house who just they are cleaning up his things when she got severe pain in her chest radiating through to her back but maybe it was going from her back to her front. She denies any shortness of breath. No nausea vomiting or abdominal pain. She reports that she has fatigue but this is not new for her. 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 Or she takes a shower and then to rest. But none of this is new. She denies any shortness of breath with exertion. She is followed by cardiology Dr. Carty. Patient was given nitroglycerin in the field which helped a little she was also given aspirin and she currently takes Plavix Related Data Home Medications Medication Instructions Recorded Confirmed aspirin 81 mg tablet,delayed 81 mg PO DAILY 08/01/21 12/19/23 release (Adult Low Dose Aspirin) calcium phos,tribasic 260 mg-D3 25 1 tab PO DAILY 12/20/23 12/20/23 mcg-herbal 50 mg chewable tablet (Alive Calcium-Vitamin D3) atorvastatin 40 mg tablet 40 mg PO DAILY 12/31/23 12/31/23 clopidogrel 75 mg tablet 75 mg PO DAILY 12/31/23 12/31/23 metoprolol succinate 25 mg 25 mg PO DAILY 12/31/23 12/31/23 tablet,extended release 24 hr Previous Rx's Medication Instructions Recorded allopurinol 100 mg tablet 100 mg PO DAILY #90 tabs 01/27/23 Glucose test strip #100 ea 02/05/23 mirtazapine 15 mg tablet 15 mg PO BEDTIME #90 tabs 02/05/23 levothyroxine 50 mcg tablet 50 mcg PO DAILY #90 tabs 03/06/23 midazolam 5 mg/spray (0.1 mL) 1 spray intranasal ONCE #2 ea 05/16/23 nasal spray furosemide 20 mg tablet (Lasix) 20 mg PO QAM #14 tabs 12/31/23 glipizide 5 mg tablet 5 mg PO DAILY diabetes #90 tabs 12/31/23 losartan 25 mg tablet 25 mg PO DAILY #90 tabs 01/01/24 Allergies Allergy/AdvReac Type Severity Reaction Status Date / Time amoxicillin [From Augmentin] Allergy Intermediate nausea/vomi Verified 12/19/23 12:16 ting clavulanic acid Allergy Intermediate nausea/vomi Verified 12/19/23 12:16 [From Augmentin] ting metformin AdvReac Intermediate Nausea Verified 12/19/23 12:16 Patient History <Lucia Chanel DO - Last Filed: 01/05/24 20:47> Medical History (Updated 01/04/24 @ 00:01 by ) Acute non-ST elevation myocardial infarction (NSTEMI) (12/19/23) Ischemic heart disease due to coronary artery obstruction CVA (cerebral vascular accident) Chronic kidney disease, stage 3b Posterior vitreous detachment of right eye Obstructive sleep apnea Vaginal melanoma Chronic back pain Recurrent UTI Presbyacusia Personality change Surgical History (Updated 12/29/23 @ 22:32 by Oscar Lozano MD) H/O cardiac catheterization Family History Father CVA (cerebral vascular accident) CAD (coronary artery disease) Mother Congestive heart failure Social History household members: children Smoking Status: Never smoker alcohol intake: current Smoking Status: Never smoker alcohol intake frequency: holidays/special occasions only Substance Use Type: does not use Exam <Lucia Chanel DO - Last Filed: 01/05/24 20:47> Initial Vital Signs Initial Vital Signs: Vital Signs Temperature 97.7 F 12/19/23 12:05 Pulse Rate 74 12/19/23 12:05 Respiratory Rate 14 12/19/23 12:05 Blood Pressure 127/60 12/19/23 12:05 Pulse Oximetry 99 12/19/23 12:05 Oxygen Delivery Method Room Air 12/19/23 12:05 GENERAL: Alert pleasant 83-year-old female and in no acute distress. HEENT: Head atraumatic,EOMI, pupils reactive, face symmetric, moist mucous membranes CARDIOVASCULAR: Regular rate and rhythm without murmurs, rubs or gallops. RESPIRATORY: Breath sounds equal bilaterally, no wheezes rales or rhonchi. ABDOMEN: Soft, nontender. Normoactive bowel sounds all 4 quadrants. No guarding or rebound. EXTREMITIES: Normal range of motion, no clubbing or edema. Neurovascularly intact NEUROLOGICAL: Alert and oriented x4.Normal gait and speech. SKIN: Warm, dry, no laceration, no petechiae, no rashes or lesions. <Daisy Quintero DO - Last Filed: 12/21/23 01:17> Initial Vital Signs Initial Vital Signs: Vital Signs Temperature 97.7 F 12/19/23 12:05 Pulse Rate 74 12/19/23 12:05 Respiratory Rate 14 12/19/23 12:05 Blood Pressure 127/60 12/19/23 12:05 Pulse Oximetry 99 12/19/23 12:05 Oxygen Delivery Method Room Air 12/19/23 12:05 <Aminah Marino MD - Last Filed: 12/20/23 19:05> Initial Vital Signs Initial Vital Signs: Vital Signs Temperature 97.7 F 12/19/23 12:05 Pulse Rate 74 12/19/23 12:05 Respiratory Rate 14 12/19/23 12:05 Blood Pressure 127/60 12/19/23 12:05 Pulse Oximetry 99 12/19/23 12:05 Oxygen Delivery Method Room Air 12/19/23 12:05 Course <Lucia Chanel DO - Last Filed: 01/05/24 20:47> Orders Ordered: Discontinued Medications Acetaminophen (Acetaminophen 325 Mg Tablet) 975 mg PO NOW ONE Stop: 12/19/23 14:19 Last Admin: 12/19/23 14:26 Dose: 975 mg Documented By: MELLY Heparin Sodium (Porcine) (Heparin 5,000 Unit/Ml Vial) 4,450 unit 60 unit/kg (4450 unit) IV NOW ONE Stop: 12/19/23 13:21 Last Admin: 12/19/23 13:49 Dose: 4,450 unit Documented By: ASTIRD Sodium Chloride (Normal Saline 0.9%) 1,000 mls @ 150 mls/hr IV CONT ELSY Last Infusion: 12/19/23 19:55 Dose: Infused Documented By: Admin: 12/19/23 13:14 Dose: 150 mls/hr Documented By: ASTRID Heparin Sodium/Dextrose (Heparin Drip) 25,000 unit in 500 mls @ 17.853 mls/hr IV CONT ELSY; Protocol Last Titration: 12/20/23 14:05 Dose: 8 units/kg/hr, 11.902 mls/hr Documented By: IBIS Co-signed By: MELLY Titration: 12/19/23 21:59 Dose: 8 units/kg/hr, 11.902 mls/hr Documented By: MELLY Co-signed By: KF Titration: 12/19/23 20:53 Dose: 0 units/kg/hr, 0 mls/hr Documented By: MELLY Co-signed By: GC Admin: 12/19/23 13:50 Dose: 12 units/kg/hr, 17.853 mls/hr Documented By: ASTRID Co-signed By: MELLY Sodium Chloride (Normal Saline 0.9%) 1,000 mls @ 150 mls/hr IV CONT ELSY Last Infusion: 12/20/23 12:11 Dose: Infused Documented By: Infusion: 12/20/23 11:24 Dose: 150 mls/hr Documented By: Admin: 12/20/23 04:15 Dose: 150 mls/hr Documented By: EARLENE Sodium Chloride (Normal Saline 0.9%) 1,000 mls @ 100 mls/hr IV CONT ELSY Last Infusion: 12/20/23 13:59 Dose: Infused Documented By: Admin: 12/20/23 12:14 Dose: 100 mls/hr Documented By: ROSY Nitroglycerin (Nitroglycerin 0.4 Mg Sl Tab) 0.4 mg SL [id number] PRN PRN Reason: Chest Pain Last Admin: 12/19/23 15:24 Dose: 0.4 mg Documented By: Admin: 12/19/23 13:14 Dose: 0.4 mg Documented By: ASTRID Nitroglycerin (Nitroglycerin 0.4 Mg Sl Tab) 0.4 mg SL NOW ONE Stop: 12/20/23 08:37 Last Admin: 12/20/23 08:43 Dose: 0.4 mg Documented By: ORSY Nitroglycerin (Nitroglycerin Oint 1 Inch/Gm Oint...G.) 0.5 inch TOP NOW ONE Stop: 12/20/23 08:37 Last Admin: 12/20/23 09:02 Dose: 0.5 inch Documented By: ROSY Vital Signs Vital signs: Vital Signs - 8 hr 12/20/23 11:15 12/20/23 11:30 12/20/23 11:30 Pulse Rate 74 69 Respiratory Rate 23 14 Blood Pressure 93/48 L Pulse Oximetry 96 Oxygen Delivery Method 12/20/23 11:45 12/20/23 12:00 12/20/23 12:00 Pulse Rate 76 73 Respiratory Rate 18 17 Blood Pressure 92/51 L Pulse Oximetry 95 96 Oxygen Delivery Method Room Air Room Air 12/20/23 12:15 12/20/23 12:30 12/20/23 12:31 Pulse Rate 79 81 77 Respiratory Rate 23 26 H 26 H Blood Pressure Pulse Oximetry 95 94 Oxygen Delivery Method Room Air 12/20/23 12:31 12/20/23 12:45 12/20/23 13:00 Pulse Rate 82 72 Respiratory Rate 23 20 Blood Pressure 126/74 Pulse Oximetry Oxygen Delivery Method 12/20/23 13:15 12/20/23 13:30 12/20/23 13:30 Pulse Rate 72 74 Respiratory Rate 19 11 L Blood Pressure 111/56 L Pulse Oximetry 97 95 Oxygen Delivery Method Room Air 12/20/23 13:45 Pulse Rate 76 Respiratory Rate 23 Blood Pressure Pulse Oximetry Oxygen Delivery Method <Daisy Quintero, DO - Last Filed: 12/21/23 01:17> Orders Ordered: Discontinued Medications Acetaminophen (Acetaminophen 325 Mg Tablet) 975 mg PO NOW ONE Stop: 12/19/23 14:19 Last Admin: 12/19/23 14:26 Dose: 975 mg Documented By: MELLY Heparin Sodium (Porcine) (Heparin 5,000 Unit/Ml Vial) 4,450 unit 60 unit/kg (4450 unit) IV NOW ONE Stop: 12/19/23 13:21 Last Admin: 12/19/23 13:49 Dose: 4,450 unit Documented By: ASTRID Sodium Chloride (Normal Saline 0.9%) 1,000 mls @ 150 mls/hr IV CONT ELSY Last Infusion: 12/19/23 19:55 Dose: Infused Documented By: Admin: 12/19/23 13:14 Dose: 150 mls/hr Documented By: ASTRID Heparin Sodium/Dextrose (Heparin Drip) 25,000 unit in 500 mls @ 17.853 mls/hr IV CONT ELSY; Protocol Last Titration: 12/20/23 14:05 Dose: 8 units/kg/hr, 11.902 mls/hr Documented By: IBIS Co-signed By: MELLY Titration: 12/19/23 21:59 Dose: 8 units/kg/hr, 11.902 mls/hr Documented By: MELLY Co-signed By: KF Titration: 12/19/23 20:53 Dose: 0 units/kg/hr, 0 mls/hr Documented By: MELLY Co-signed By: GC Admin: 12/19/23 13:50 Dose: 12 units/kg/hr, 17.853 mls/hr Documented By: ASTRID Co-signed By: MELLY Sodium Chloride (Normal Saline 0.9%) 1,000 mls @ 150 mls/hr IV CONT ELSY Last Infusion: 12/20/23 12:11 Dose: Infused Documented By: Infusion: 12/20/23 11:24 Dose: 150 mls/hr Documented By: Admin: 12/20/23 04:15 Dose: 150 mls/hr Documented By: EARLENE Sodium Chloride (Normal Saline 0.9%) 1,000 mls @ 100 mls/hr IV CONT ELSY Last Infusion: 12/20/23 13:59 Dose: Infused Documented By: Admin: 12/20/23 12:14 Dose: 100 mls/hr Documented By: ROSY Nitroglycerin (Nitroglycerin 0.4 Mg Sl Tab) 0.4 mg SL [id number] PRN PRN Reason: Chest Pain Last Admin: 12/19/23 15:24 Dose: 0.4 mg Documented By: Admin: 12/19/23 13:14 Dose: 0.4 mg Documented By: ASTRID Nitroglycerin (Nitroglycerin 0.4 Mg Sl Tab) 0.4 mg SL NOW ONE Stop: 12/20/23 08:37 Last Admin: 12/20/23 08:43 Dose: 0.4 mg Documented By: ROSY Nitroglycerin (Nitroglycerin Oint 1 Inch/Gm Oint...G.) 0.5 inch TOP NOW ONE Stop: 12/20/23 08:37 Last Admin: 12/20/23 09:02 Dose: 0.5 inch Documented By: ROSY Vital Signs Vital signs: Vital Signs - 8 hr 12/20/23 11:15 12/20/23 11:30 12/20/23 11:30 Pulse Rate 74 69 Respiratory Rate 23 14 Blood Pressure 93/48 L Pulse Oximetry 96 Oxygen Delivery Method 12/20/23 11:45 12/20/23 12:00 12/20/23 12:00 Pulse Rate 76 73 Respiratory Rate 18 17 Blood Pressure 92/51 L Pulse Oximetry 95 96 Oxygen Delivery Method Room Air Room Air 12/20/23 12:15 12/20/23 12:30 12/20/23 12:31 Pulse Rate 79 81 77 Respiratory Rate 23 26 H 26 H Blood Pressure Pulse Oximetry 95 94 Oxygen Delivery Method Room Air 12/20/23 12:31 12/20/23 12:45 12/20/23 13:00 Pulse Rate 82 72 Respiratory Rate 23 20 Blood Pressure 126/74 Pulse Oximetry Oxygen Delivery Method 12/20/23 13:15 12/20/23 13:30 12/20/23 13:30 Pulse Rate 72 74 Respiratory Rate 19 11 L Blood Pressure 111/56 L Pulse Oximetry 97 95 Oxygen Delivery Method Room Air 12/20/23 13:45 Pulse Rate 76 Respiratory Rate 23 Blood Pressure Pulse Oximetry Oxygen Delivery Method <Aminah Marino MD - Last Filed: 12/20/23 19:05> Orders Ordered: Discontinued Medications Acetaminophen (Acetaminophen 325 Mg Tablet) 975 mg PO NOW ONE Stop: 12/19/23 14:19 Last Admin: 12/19/23 14:26 Dose: 975 mg Documented By: MELLY Heparin Sodium (Porcine) (Heparin 5,000 Unit/Ml Vial) 4,450 unit 60 unit/kg (4450 unit) IV NOW ONE Stop: 12/19/23 13:21 Last Admin: 12/19/23 13:49 Dose: 4,450 unit Documented By: ASTRID Sodium Chloride (Normal Saline 0.9%) 1,000 mls @ 150 mls/hr IV CONT ELSY Last Infusion: 12/19/23 19:55 Dose: Infused Documented By: Admin: 12/19/23 13:14 Dose: 150 mls/hr Documented By: ASTRID Heparin Sodium/Dextrose (Heparin Drip) 25,000 unit in 500 mls @ 17.853 mls/hr IV CONT ELSY; Protocol Last Titration: 12/20/23 14:05 Dose: 8 units/kg/hr, 11.902 mls/hr Documented By: IBIS Co-signed By: MELLY Titration: 12/19/23 21:59 Dose: 8 units/kg/hr, 11.902 mls/hr Documented By: MELLY Co-signed By: SPENSER Titration: 12/19/23 20:53 Dose: 0 units/kg/hr, 0 mls/hr Documented By: MELLY Co-signed By: JOSEPH Admin: 12/19/23 13:50 Dose: 12 units/kg/hr, 17.853 mls/hr Documented By: ASTRID Co-signed By: MELLY Sodium Chloride (Normal Saline 0.9%) 1,000 mls @ 150 mls/hr IV CONT ELSY Last Infusion: 12/20/23 12:11 Dose: Infused Documented By: Infusion: 12/20/23 11:24 Dose: 150 mls/hr Documented By: Admin: 12/20/23 04:15 Dose: 150 mls/hr Documented By: EARLENE Sodium Chloride (Normal Saline 0.9%) 1,000 mls @ 100 mls/hr IV CONT ELSY Last Infusion: 12/20/23 13:59 Dose: Infused Documented By: Admin: 12/20/23 12:14 Dose: 100 mls/hr Documented By: ROSY Nitroglycerin (Nitroglycerin 0.4 Mg Sl Tab) 0.4 mg SL [id number] PRN PRN Reason: Chest Pain Last Admin: 12/19/23 15:24 Dose: 0.4 mg Documented By: Admin: 12/19/23 13:14 Dose: 0.4 mg Documented By: ASTRID Nitroglycerin (Nitroglycerin 0.4 Mg Sl Tab) 0.4 mg SL NOW ONE Stop: 12/20/23 08:37 Last Admin: 12/20/23 08:43 Dose: 0.4 mg Documented By: ROSY Nitroglycerin (Nitroglycerin Oint 1 Inch/Gm Oint...G.) 0.5 inch TOP NOW ONE Stop: 12/20/23 08:37 Last Admin: 12/20/23 09:02 Dose: 0.5 inch Documented By: ROSY Vital Signs Vital signs: Vital Signs - 8 hr 12/20/23 11:15 12/20/23 11:30 12/20/23 11:30 Pulse Rate 74 69 Respiratory Rate 23 14 Blood Pressure 93/48 L Pulse Oximetry 96 Oxygen Delivery Method 12/20/23 11:45 12/20/23 12:00 12/20/23 12:00 Pulse Rate 76 73 Respiratory Rate 18 17 Blood Pressure 92/51 L Pulse Oximetry 95 96 Oxygen Delivery Method Room Air Room Air 12/20/23 12:15 12/20/23 12:30 12/20/23 12:31 Pulse Rate 79 81 77 Respiratory Rate 23 26 H 26 H Blood Pressure Pulse Oximetry 95 94 Oxygen Delivery Method Room Air 12/20/23 12:31 12/20/23 12:45 12/20/23 13:00 Pulse Rate 82 72 Respiratory Rate 23 20 Blood Pressure 126/74 Pulse Oximetry Oxygen Delivery Method 12/20/23 13:15 12/20/23 13:30 12/20/23 13:30 Pulse Rate 72 74 Respiratory Rate 19 11 L Blood Pressure 111/56 L Pulse Oximetry 97 95 Oxygen Delivery Method Room Air 12/20/23 13:45 Pulse Rate 76 Respiratory Rate 23 Blood Pressure Pulse Oximetry Oxygen Delivery Method MDM - Chest Pain <Lucia Chanel, DO - Last Filed: 01/05/24 20:47> Lab Data 12/20/23 09:00 12/20/23 03:57 Labs: Lab Results 12/19/23 12/19/23 12/19/23 Range/Units 12:10 12:18 14:13 WBC 7.7 (4.5-11.0) X10^3/uL RBC 3.58 L (4.0-5.2) X10^6/uL Hgb 10.8 L (12.0-16.0) g/dL Hct 31.8 L (36-46) % MCV 88.9 (80-100) fL MCH 30.1 (26-34) PG MCHC 33.9 (30-36) % RDW 14.8 (11.6-14.8) % Plt Count 170 (150-400) X10^3/uL Neut % (Auto) 57.4 (50-75) % Lymph % (Auto) 35.2 (25-40) % [place] % (Auto) 6.0 (3-14) % Eos % (Auto) 0.8 L (2-4) % Baso % (Auto) 0.6 (0-2) % Neut # (Auto) 4400 (2611-3697) /uL Lymph # (Auto) 2700 (6447-2662) /uL [place] # (Auto) 500 (0-900) /uL Eos # (Auto) 100 (0-450) /uL Baso # (Auto) 0 (0-100) /uL PT 12.8 H (9.4-12.5) SECONDS INR 1.1 (0.9-1.3) APTT 26 (25.1-36.5) SECONDS Sodium 138 (137-145) mmol/L Potassium 3.7 (3.4-5.1) mmol/L Chloride 108 H (98-107) mmol/L Carbon Dioxide 17 L (22-32) mmol/L BUN 18 H (7-17) mg/dL Creatinine 1.73 H (0.52-1.04) mg/dL Estimated GFR 29 L (>60) mL/min BUN/Creatinine Ratio 10.4 (6-22) Glucose 278 H (80-110) mg/dL Lactate 2.0 (0.7-2.1) mmol/L Calcium 8.8 (8.4-10.2) mg/dL Magnesium 1.9 (1.6-2.3) mg/dL Total Bilirubin 0.8 (0.2-1.3) mg/dL AST 29 (14-36) IU/L ALT 32 (<35) IU/L Alkaline Phosphatase 104 (38-126) U/L Total Creatine Kinase 86 (30-135) U/L Troponin I 0.158 H* 1.170 H* (0.01-0.034) ng/mL Total Protein 7.0 (6.3-8.2) g/dL Albumin 3.7 (3.5-5.0) g/dL Globulin 3.3 (1.7-4.1) g/dL Albumin/Globulin Ratio 1.1 (1.0-2.8) Lipase 189 (23-300) U/L 12/19/23 12/20/23 12/20/23 Range/Units 19:56 03:57 09:00 WBC 4.6 (4.5-11.0) X10^3/uL RBC 3.21 L (4.0-5.2) X10^6/uL Hgb 9.7 L 9.6 L (12.0-16.0) g/dL Hct 28.6 L 28.2 L (36-46) % MCV 89.2 (80-100) fL MCH 30.3 (26-34) PG MCHC 34.0 (30-36) % RDW 14.3 (11.6-14.8) % Plt Count 139 L 144 L (150-400) X10^3/uL Neut % (Auto) 49.8 L (50-75) % Lymph % (Auto) 41.7 H (25-40) % [place] % (Auto) 6.3 (3-14) % Eos % (Auto) 1.4 L (2-4) % Baso % (Auto) 0.8 (0-2) % Neut # (Auto) 2300 (3989-7071) /uL Lymph # (Auto) 1900 (6555-4108) /uL [place] # (Auto) 300 (0-900) /uL Eos # (Auto) 100 (0-450) /uL Baso # (Auto) 0 (0-100) /uL PT (9.4-12.5) SECONDS INR (0.9-1.3) APTT 180 H* D 55 H D (25.1-36.5) SECONDS Sodium 137 (137-145) mmol/L Potassium 3.7 (3.4-5.1) mmol/L Chloride 108 H (98-107) mmol/L Carbon Dioxide 20 L (22-32) mmol/L BUN 19 H (7-17) mg/dL Creatinine 1.79 H (0.52-1.04) mg/dL Estimated GFR 28 L (>60) mL/min BUN/Creatinine Ratio 10.6 (6-22) Glucose 190 H (80-110) mg/dL Lactate (0.7-2.1) mmol/L Calcium 8.9 (8.4-10.2) mg/dL Magnesium (1.6-2.3) mg/dL Total Bilirubin (0.2-1.3) mg/dL AST (14-36) IU/L ALT (<35) IU/L Alkaline Phosphatase (38-126) U/L Total Creatine Kinase (30-135) U/L Troponin I 0.901 H* (0.01-0.034) ng/mL Total Protein (6.3-8.2) g/dL Albumin (3.5-5.0) g/dL Globulin (1.7-4.1) g/dL Albumin/Globulin Ratio (1.0-2.8) Lipase (23-300) U/L 12/20/23 Range/Units 11:00 WBC (4.5-11.0) X10^3/uL RBC (4.0-5.2) X10^6/uL Hgb (12.0-16.0) g/dL Hct (36-46) % MCV (80-100) fL MCH (26-34) PG MCHC (30-36) % RDW (11.6-14.8) % Plt Count (150-400) X10^3/uL Neut % (Auto) (50-75) % Lymph % (Auto) (25-40) % [place] % (Auto) (3-14) % Eos % (Auto) (2-4) % Baso % (Auto) (0-2) % Neut # (Auto) (9760-7477) /uL Lymph # (Auto) (0121-1399) /uL [place] # (Auto) (0-900) /uL Eos # (Auto) (0-450) /uL Baso # (Auto) (0-100) /uL PT (9.4-12.5) SECONDS INR (0.9-1.3) APTT 54 H (25.1-36.5) SECONDS Sodium (137-145) mmol/L Potassium (3.4-5.1) mmol/L Chloride (98-107) mmol/L Carbon Dioxide (22-32) mmol/L BUN (7-17) mg/dL Creatinine (0.52-1.04) mg/dL Estimated GFR (>60) mL/min BUN/Creatinine Ratio (6-22) Glucose (80-110) mg/dL Lactate (0.7-2.1) mmol/L Calcium (8.4-10.2) mg/dL Magnesium (1.6-2.3) mg/dL Total Bilirubin (0.2-1.3) mg/dL AST (14-36) IU/L ALT (<35) IU/L Alkaline Phosphatase (38-126) U/L Total Creatine Kinase (30-135) U/L Troponin I (0.01-0.034) ng/mL Total Protein (6.3-8.2) g/dL Albumin (3.5-5.0) g/dL Globulin (1.7-4.1) g/dL Albumin/Globulin Ratio (1.0-2.8) Lipase (23-300) U/L Imaging Data Chest x-ray: Radiologist's Impression: PROCEDURE: XR CHEST 1V INDICATIONS: chest pain TECHNIQUE: One view of the chest was acquired. COMPARISON: [facility], , XR CHEST 1V, 08/14/2022, 8:10. FINDINGS: Surgical changes and devices: None. Lungs and pleura: Lungs are clear on the right but there appears to be mild or early pneumonia at the left lower lobe both behind the left ventricular margin and lateral to the left ventricular apex.. No pleural effusions or pneumothorax. Mediastinum: Mediastinal contours appear normal. Heart size is normal. Bones and chest wall: No suspicious bony lesions. Overlying soft tissues appear unremarkable. IMPRESSION: Mild or early pneumonia left lower lobe. No pleural effusion seen. Dictated by: Murphy Álvarez M.D. on 12/19/2023 at 13:04 Approved by: Murphy Álvarez M.D. on 12/19/2023 at 13:05 ECG Data Interpretation: Normal sinus rhythm rate 67 ME interval 222 QRS [address] depression in V2 and be [address] elevations EKG 2. Sinus rhythm with persistent changes in V2 in the [address] elevation EKG 3. More pronounced T-wave inversion ST depression V2 no elevation MDM Narrative Medical decision making narrative: Patient 83-year-old female presenting today with chest pain. She has a history of coronary artery disease with stent. Reports that she had sudden onset of chest pain radiating through to her back. She did have some EKG changes that totally resolved with nitroglycerin with EMS. She now with still having some mild pressure. Blood work reviewed troponin elevated 0.158 with repeat 1.1, no CARLIN creatinine 1.73 previously 1.82, but does have a bicarb of 17, Chest x-ray reviewed, early pneumonia but does not currently clinically correlate Signature glycerin here in the ED. She does have some intermittent EKG changes she has an elevated troponin consistent with NSTEMI. Patient was given aspirin with EMS she was started on heparin drip 1430 Dr. Carty cardiology updated patient's symptoms test results agrees with transfer. Would hold off on nitroglycerin drip if pressure is soft 1830 Dr. Jacobo cardiology at [facility] updated patient's symptoms test results has reviewed EKGs herself agrees that there is some abnormality. 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 Still waiting to hear back from [facility] if they are able to accept. Signed out to Dr. Quintero. 12/19/23 Leon: Patient signed out to myself. Labs and imaging were reviewed. Patient seen and independently evaluated by myself. Patient had have some new ST changes that resolved with nitro with EMS. Troponin trended upwards was initially positive at 0.58 and then went to 1.1, chronic kidney disease with a creatinine of 1.73. Patient has been somewhat hypotensive with nitro so will hold nitro, patient is on heparin drip. I spoke with Dr. Henry, cardiology at [facility], no beds currently available but agrees with current plan. Multiple facilities were contacted without any bed availability this evening. [facility] hotline for assistance with placement. 12/20/23 0033: [facility] has beds: Spoke with Dr. Medina with cardiology who does want patient transferred to their facility. No changes from before systolic has still been about 100 fairly regularly. Patient's troponins are positive. On heparin drip. Nitro continued to be held. Hospitalist is being paged out. Call back to [facility] at 0130 and 0300, 0500, coordinator states willback after shift change with Hospitalist at [facility]. States they do have bed for patient. Repeat labs along with ptt at 0400. Patient restarted on maintenance fluids. CBC shows a hemoglobin of 9.7 was 10.8 on the yesterday, white count of 4.6 and platelets of 139. Creatinine 1.79, sodium is 137 potassium 3 7 chloride 108 CO2 is 20, BUN 19 with a glucose of 190. Troponin trended downward 0.90 but still positive. Patient signed out to Dr. Marino while awaiting bed/hospitalist at [facility]. [facility] still aware of patient. 740am care is assumed, chart is reviewed, Patient presents with chance pain, NSTEMI her troponin peaked at 2:00 a.m. yesterday afternoon at 1.170. This morning at 4:00 a.m. she is down to .901. Initial EKGs per medics did show some dynamic EKG changes with nitroglycerin. She has been pain-free throughout her stay. She is currently on a heparin drip. She does have a history of coronary disease. His otherwise been quite comfortable. Heparin drip did not need to be adjusted with most recent re-evaluation at 4:00 a.m.. Care is reviewed with hospitalist service at [facility]. Patient is accepted. Waiting for call back from housecalls nurse to arrange ALS transport. Patient is aware of need for transport, care has been reviewed with Dr. Carty during who will consult while the patient is admitted to [facility]. Patient is safe for transport to [facility] for definitive treatment of her NSTEMI 840am Apparently assigned bed still has patient that we will be discharged this morning. Patient is complaining of 4/10 substernal chest pain. She has been given an additional nitroglycerin and nitro paste started. Blood pressure is high enough at 139/67 that a nitroglycerin trial will be appropriate. EKGs being repeated. -with sublingual nitroglycerin pain from 4-2 and seems to be continuing to decrease. Nitro paste is placed. -EKG is repeated shows sinus rhythm. QTC is prolonged at 521 milliseconds which is a change. Otherwise, EKGs very similar to 3 obtained yesterday with initial workup. Not meeting any STEMI criteria. <Daisy Quintero DO - Last Filed: 12/21/23 01:17> Lab Data Labs: Lab Results 12/19/23 12/19/23 12/19/23 Range/Units 12:10 12:18 14:13 WBC 7.7 (4.5-11.0) X10^3/uL RBC 3.58 L (4.0-5.2) X10^6/uL Hgb 10.8 L (12.0-16.0) g/dL Hct 31.8 L (36-46) % MCV 88.9 (80-100) fL MCH 30.1 (26-34) PG MCHC 33.9 (30-36) % RDW 14.8 (11.6-14.8) % Plt Count 170 (150-400) X10^3/uL Neut % (Auto) 57.4 (50-75) % Lymph % (Auto) 35.2 (25-40) % [place] % (Auto) 6.0 (3-14) % Eos % (Auto) 0.8 L (2-4) % Baso % (Auto) 0.6 (0-2) % Neut # (Auto) 4400 (4787-2412) /uL Lymph # (Auto) 2700 (3675-5670) /uL [place] # (Auto) 500 (0-900) /uL Eos # (Auto) 100 (0-450) /uL Baso # (Auto) 0 (0-100) /uL PT 12.8 H (9.4-12.5) SECONDS INR 1.1 (0.9-1.3) APTT 26 (25.1-36.5) SECONDS Sodium 138 (137-145) mmol/L Potassium 3.7 (3.4-5.1) mmol/L Chloride 108 H (98-107) mmol/L Carbon Dioxide 17 L (22-32) mmol/L BUN 18 H (7-17) mg/dL Creatinine 1.73 H (0.52-1.04) mg/dL Estimated GFR 29 L (>60) mL/min BUN/Creatinine Ratio 10.4 (6-22) Glucose 278 H (80-110) mg/dL Lactate 2.0 (0.7-2.1) mmol/L Calcium 8.8 (8.4-10.2) mg/dL Magnesium 1.9 (1.6-2.3) mg/dL Total Bilirubin 0.8 (0.2-1.3) mg/dL AST 29 (14-36) IU/L ALT 32 (<35) IU/L Alkaline Phosphatase 104 (38-126) U/L Total Creatine Kinase 86 (30-135) U/L Troponin I 0.158 H* 1.170 H* (0.01-0.034) ng/mL Total Protein 7.0 (6.3-8.2) g/dL Albumin 3.7 (3.5-5.0) g/dL Globulin 3.3 (1.7-4.1) g/dL Albumin/Globulin Ratio 1.1 (1.0-2.8) Lipase 189 (23-300) U/L 12/19/23 12/20/23 12/20/23 Range/Units 19:56 03:57 09:00 WBC 4.6 (4.5-11.0) X10^3/uL RBC 3.21 L (4.0-5.2) X10^6/uL Hgb 9.7 L 9.6 L (12.0-16.0) g/dL Hct 28.6 L 28.2 L (36-46) % MCV 89.2 (80-100) fL MCH 30.3 (26-34) PG MCHC 34.0 (30-36) % RDW 14.3 (11.6-14.8) % Plt Count 139 L 144 L (150-400) X10^3/uL Neut % (Auto) 49.8 L (50-75) % Lymph % (Auto) 41.7 H (25-40) % [place] % (Auto) 6.3 (3-14) % Eos % (Auto) 1.4 L (2-4) % Baso % (Auto) 0.8 (0-2) % Neut # (Auto) 2300 (0348-5461) /uL Lymph # (Auto) 1900 (7500-3180) /uL [place] # (Auto) 300 (0-900) /uL Eos # (Auto) 100 (0-450) /uL Baso # (Auto) 0 (0-100) /uL PT (9.4-12.5) SECONDS INR (0.9-1.3) APTT 180 H* D 55 H D (25.1-36.5) SECONDS Sodium 137 (137-145) mmol/L Potassium 3.7 (3.4-5.1) mmol/L Chloride 108 H (98-107) mmol/L Carbon Dioxide 20 L (22-32) mmol/L BUN 19 H (7-17) mg/dL Creatinine 1.79 H (0.52-1.04) mg/dL Estimated GFR 28 L (>60) mL/min BUN/Creatinine Ratio 10.6 (6-22) Glucose 190 H (80-110) mg/dL Lactate (0.7-2.1) mmol/L Calcium 8.9 (8.4-10.2) mg/dL Magnesium (1.6-2.3) mg/dL Total Bilirubin (0.2-1.3) mg/dL AST (14-36) IU/L ALT (<35) IU/L Alkaline Phosphatase (38-126) U/L Total Creatine Kinase (30-135) U/L Troponin I 0.901 H* (0.01-0.034) ng/mL Total Protein (6.3-8.2) g/dL Albumin (3.5-5.0) g/dL Globulin (1.7-4.1) g/dL Albumin/Globulin Ratio (1.0-2.8) Lipase (23-300) U/L 12/20/23 Range/Units 11:00 WBC (4.5-11.0) X10^3/uL RBC (4.0-5.2) X10^6/uL Hgb (12.0-16.0) g/dL Hct (36-46) % MCV (80-100) fL MCH (26-34) PG MCHC (30-36) % RDW (11.6-14.8) % Plt Count (150-400) X10^3/uL Neut % (Auto) (50-75) % Lymph % (Auto) (25-40) % [place] % (Auto) (3-14) % Eos % (Auto) (2-4) % Baso % (Auto) (0-2) % Neut # (Auto) (9394-8391) /uL Lymph # (Auto) (0034-4355) /uL [place] # (Auto) (0-900) /uL Eos # (Auto) (0-450) /uL Baso # (Auto) (0-100) /uL PT (9.4-12.5) SECONDS INR (0.9-1.3) APTT 54 H (25.1-36.5) SECONDS Sodium (137-145) mmol/L Potassium (3.4-5.1) mmol/L Chloride (98-107) mmol/L Carbon Dioxide (22-32) mmol/L BUN (7-17) mg/dL Creatinine (0.52-1.04) mg/dL Estimated GFR (>60) mL/min BUN/Creatinine Ratio (6-22) Glucose (80-110) mg/dL Lactate (0.7-2.1) mmol/L Calcium (8.4-10.2) mg/dL Magnesium (1.6-2.3) mg/dL Total Bilirubin (0.2-1.3) mg/dL AST (14-36) IU/L ALT (<35) IU/L Alkaline Phosphatase (38-126) U/L Total Creatine Kinase (30-135) U/L Troponin I (0.01-0.034) ng/mL Total Protein (6.3-8.2) g/dL Albumin (3.5-5.0) g/dL Globulin (1.7-4.1) g/dL Albumin/Globulin Ratio (1.0-2.8) Lipase (23-300) U/L MDM Narrative Medical decision making narrative: Patient 83-year-old female presenting today with chest pain. She has a history of coronary artery disease with stent. Reports that she had sudden onset of chest pain radiating through to her back. She did have some EKG changes that totally resolved with nitroglycerin with EMS. She now with still having some mild pressure. Blood work reviewed troponin elevated 0.158 with repeat 1.1, no CARLIN creatinine 1.73 previously 1.82, but does have a bicarb of 17, Chest x-ray reviewed, early pneumonia but does not currently clinically correlate Signature glycerin here in the ED. She does have some intermittent EKG changes she has an elevated troponin consistent with NSTEMI. Patient was given aspirin with EMS she was started on heparin drip 1430 Dr. Carty cardiology updated patient's symptoms test results agrees with transfer. Would hold off on nitroglycerin drip if pressure is soft 1829 Dr. Jacobo cardiology at [facility] updated patient's symptoms test results has reviewed EKGs herself agrees that there is some abnormality. 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 Still waiting to hear back from [facility] if they are able to accept 12/19/23 Mank: Patient signed out to myself. Labs and imaging were reviewed. Patient seen and independently evaluated by myself. Patient had have some new ST changes that resolved with nitro with EMS. Troponin trended upwards was initially positive at 0.58 and then went to 1.1, chronic kidney disease with a creatinine of 1.73. Patient has been somewhat hypotensive with nitro so will hold nitro, patient is on heparin drip. I spoke with Dr. Henry, cardiology at [facility], no beds currently available but agrees with current plan. Multiple facilities were contacted without any bed availability this evening. [facility] hotline for assistance with placement. 12/20/23 0033: [facility] has beds: Spoke with Dr. Medina with cardiology who does want patient transferred to their facility. No changes from before systolic has still been about 100 fairly regularly. Patient's troponins are positive. On heparin drip. Nitro continued to be held. Hospitalist is being paged out. Call back to [facility] at 0130 and 0300, 0500, coordinator states willback after shift change with Hospitalist at [facility]. States they do have bed for patient. Repeat labs along with ptt at 0400. Patient restarted on maintenance fluids. CBC shows a hemoglobin of 9.7 was 10.8 on the yesterday, white count of 4.6 and platelets of 139. Creatinine 1.79, sodium is 137 potassium 3 7 chloride 108 CO2 is 20, BUN 19 with a glucose of 190. Troponin trended downward 0.90 but still positive. Patient signed out to Dr. Marino while awaiting bed/hospitalist at [facility]. [facility] still aware of patient. <Aminah Marino MD - Last Filed: 12/20/23 19:05> Lab Data Labs: Lab Results 12/19/23 12/19/23 12/19/23 Range/Units 12:10 12:18 14:13 WBC 7.7 (4.5-11.0) X10^3/uL RBC 3.58 L (4.0-5.2) X10^6/uL Hgb 10.8 L (12.0-16.0) g/dL Hct 31.8 L (36-46) % MCV 88.9 (80-100) fL MCH 30.1 (26-34) PG MCHC 33.9 (30-36) % RDW 14.8 (11.6-14.8) % Plt Count 170 (150-400) X10^3/uL Neut % (Auto) 57.4 (50-75) % Lymph % (Auto) 35.2 (25-40) % [place] % (Auto) 6.0 (3-14) % Eos % (Auto) 0.8 L (2-4) % Baso % (Auto) 0.6 (0-2) % Neut # (Auto) 4400 (7294-0255) /uL Lymph # (Auto) 2700 (2619-3967) /uL [place] # (Auto) 500 (0-900) /uL Eos # (Auto) 100 (0-450) /uL Baso # (Auto) 0 (0-100) /uL PT 12.8 H (9.4-12.5) SECONDS INR 1.1 (0.9-1.3) APTT 26 (25.1-36.5) SECONDS Sodium 138 (137-145) mmol/L Potassium 3.7 (3.4-5.1) mmol/L Chloride 108 H (98-107) mmol/L Carbon Dioxide 17 L (22-32) mmol/L BUN 18 H (7-17) mg/dL Creatinine 1.73 H (0.52-1.04) mg/dL Estimated GFR 29 L (>60) mL/min BUN/Creatinine Ratio 10.4 (6-22) Glucose 278 H (80-110) mg/dL Lactate 2.0 (0.7-2.1) mmol/L Calcium 8.8 (8.4-10.2) mg/dL Magnesium 1.9 (1.6-2.3) mg/dL Total Bilirubin 0.8 (0.2-1.3) mg/dL AST 29 (14-36) IU/L ALT 32 (<35) IU/L Alkaline Phosphatase 104 (38-126) U/L Total Creatine Kinase 86 (30-135) U/L Troponin I 0.158 H* 1.170 H* (0.01-0.034) ng/mL Total Protein 7.0 (6.3-8.2) g/dL Albumin 3.7 (3.5-5.0) g/dL Globulin 3.3 (1.7-4.1) g/dL Albumin/Globulin Ratio 1.1 (1.0-2.8) Lipase 189 (23-300) U/L 12/19/23 12/20/2312/20/24 Range/Units 19:56 03:57 09:00 WBC 4.6 (4.5-11.0) X10^3/uL RBC 3.21 L (4.0-5.2) X10^6/uL Hgb 9.7 L 9.6 L (12.0-16.0) g/dL Hct 28.6 L 28.2 L (36-46) % MCV 89.2 (80-100) fL MCH 30.3 (26-34) PG MCHC 34.0 (30-36) % RDW 14.3 (11.6-14.8) % Plt Count 139 L 144 L (150-400) X10^3/uL Neut % (Auto) 49.8 L (50-75) % Lymph % (Auto) 41.7 H (25-40) % [place] % (Auto) 6.3 (3-14) % Eos % (Auto) 1.4 L (2-4) % Baso % (Auto) 0.8 (0-2) % Neut # (Auto) 2300 (2462-0740) /uL Lymph # (Auto) 1900 (9368-1974) /uL [place] # (Auto) 300 (0-900) /uL Eos # (Auto) 100 (0-450) /uL Baso # (Auto) 0 (0-100) /uL PT (9.4-12.5) SECONDS INR (0.9-1.3) APTT 180 H* D 55 H D (25.1-36.5) SECONDS Sodium 137 (137-145) mmol/L Potassium 3.7 (3.4-5.1) mmol/L Chloride 108 H (98-107) mmol/L Carbon Dioxide 20 L (22-32) mmol/L BUN 19 H (7-17) mg/dL Creatinine 1.79 H (0.52-1.04) mg/dL Estimated GFR 28 L (>60) mL/min BUN/Creatinine Ratio 10.6 (6-22) Glucose 190 H (80-110) mg/dL Lactate (0.7-2.1) mmol/L Calcium 8.9 (8.4-10.2) mg/dL Magnesium (1.6-2.3) mg/dL Total Bilirubin (0.2-1.3) mg/dL AST (14-36) IU/L ALT (<35) IU/L Alkaline Phosphatase (38-126) U/L Total Creatine Kinase (30-135) U/L Troponin I 0.901 H* (0.01-0.034) ng/mL Total Protein (6.3-8.2) g/dL Albumin (3.5-5.0) g/dL Globulin (1.7-4.1) g/dL Albumin/Globulin Ratio (1.0-2.8) Lipase (23-300) U/L 12/20/23 Range/Units 11:00 WBC (4.5-11.0) X10^3/uL RBC (4.0-5.2) X10^6/uL Hgb (12.0-16.0) g/dL Hct (36-46) % MCV (80-100) fL MCH (26-34) PG MCHC (30-36) % RDW (11.6-14.8) % Plt Count (150-400) X10^3/uL Neut % (Auto) (50-75) % Lymph % (Auto) (25-40) % [place] % (Auto) (3-14) % Eos % (Auto) (2-4) % Baso % (Auto) (0-2) % Neut # (Auto) (1836-4127) /uL Lymph # (Auto) (0515-2882) /uL [place] # (Auto) (0-900) /uL Eos # (Auto) (0-450) /uL Baso # (Auto) (0-100) /uL PT (9.4-12.5) SECONDS INR (0.9-1.3) APTT 54 H (25.1-36.5) SECONDS Sodium (137-145) mmol/L Potassium (3.4-5.1) mmol/L Chloride (98-107) mmol/L Carbon Dioxide (22-32) mmol/L BUN (7-17) mg/dL Creatinine (0.52-1.04) mg/dL Estimated GFR (>60) mL/min BUN/Creatinine Ratio (6-22) Glucose (80-110) mg/dL Lactate (0.7-2.1) mmol/L Calcium (8.4-10.2) mg/dL Magnesium (1.6-2.3) mg/dL Total Bilirubin (0.2-1.3) mg/dL AST (14-36) IU/L ALT (<35) IU/L Alkaline Phosphatase (38-126) U/L Total Creatine Kinase (30-135) U/L Troponin I (0.01-0.034) ng/mL Total Protein (6.3-8.2) g/dL Albumin (3.5-5.0) g/dL Globulin (1.7-4.1) g/dL Albumin/Globulin Ratio (1.0-2.8) Lipase (23-300) U/L MDM Narrative Medical decision making narrative: Patient 83-year-old female presenting today with chest pain. She has a history of coronary artery disease with stent. Reports that she had sudden onset of chest pain radiating through to her back. She did have some EKG changes that totally resolved with nitroglycerin with EMS. She now with still having some mild pressure. Blood work reviewed troponin elevated 0.158 with repeat 1.1, no CARLIN creatinine 1.73 previously 1.82, but does have a bicarb of 17, Chest x-ray reviewed, early pneumonia but does not currently clinically correlate Signature glycerin here in the ED. She does have some intermittent EKG changes she has an elevated troponin consistent with NSTEMI. Patient was given aspirin with EMS she was started on heparin drip 1430 Dr. Carty cardiology updated patient's symptoms test results agrees with transfer. Would hold off on nitroglycerin drip if pressure is soft 1829 Dr. Jacobo cardiology at [facility] updated patient's symptoms test results has reviewed EKGs herself agrees that there is some abnormality. 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 Still waiting to hear back from [facility] if they are able to accept 12/19/23 Mank: Patient signed out to myself. Labs and imaging were reviewed. Patient seen and independently evaluated by myself. Patient had have some new ST changes that resolved with nitro with EMS. Troponin trended upwards was initially positive at 0.58 and then went to 1.1, chronic kidney disease with a creatinine of 1.73. Patient has been somewhat hypotensive with nitro so will hold nitro, patient is on heparin drip. I spoke with Dr. Henry, cardiology at [facility], no beds currently available but agrees with current plan. Multiple facilities were contacted without any bed availability this evening. [facility] hotline for assistance with placement. 12/20/23 0033: [facility] has beds: Spoke with Dr. Medina with cardiology who does want patient transferred to their facility. No changes from before systolic has still been about 100 fairly regularly. Patient's troponins are positive. On heparin drip. Nitro continued to be held. Hospitalist is being paged out. Call back to [facility] at 0130 and 0300, 0500, coordinator states willback after shift change with Hospitalist at [facility]. States they do have bed for patient. Repeat labs along with ptt at 0400. Patient restarted on maintenance fluids. CBC shows a hemoglobin of 9.7 was 10.8 on the yesterday, white count of 4.6 and platelets of 139. Creatinine 1.79, sodium is 137 potassium 3 7 chloride 108 CO2 is 20, BUN 19 with a glucose of 190. Troponin trended downward 0.90 but still positive. Patient signed out to Dr. Marino while awaiting bed/hospitalist at [facility]. [facility] still aware of patient. 740am care is assumed, chart is reviewed, Patient presents with chance pain, NSTEMI her troponin peaked at 2:00 a.m. yesterday afternoon at 1.170. This morning at 4:00 a.m. she is down to .901. Initial EKGs per medics did show some dynamic EKG changes with nitroglycerin. She has been pain-free throughout her stay. She is currently on a heparin drip. She does have a history of coronary disease. His otherwise been quite comfortable. Heparin drip did not need to be adjusted with most recent re-evaluation at 4:00 a.m.. Care is reviewed with hospitalist service at [facility]. Patient is accepted. Waiting for call back from housecalls nurse to arrange ALS transport. Patient is aware of need for transport, care has been reviewed with Dr. Carty during who will consult while the patient is admitted to [facility]. Patient is safe for transport to [facility] for definitive treatment of her NSTEMI 840am Apparently assigned bed still has patient that we will be discharged this morning. Patient is complaining of 4/10 substernal chest pain. She has been given an additional nitroglycerin and nitro paste started. Blood pressure is high enough at 139/67 that a nitroglycerin trial will be appropriate. EKGs being repeated. -with sublingual nitroglycerin pain from 4-2 and seems to be continuing to decrease. Nitro paste is placed. -EKG is repeated shows sinus rhythm. QTC is prolonged at 521 milliseconds which is a change. Otherwise, EKGs very similar to 3 obtained yesterday with initial workup. Not meeting any STEMI criteria. Critical Care Time <Aminah Marino MD - Last Filed: 12/20/23 19:05> Critical Care Time Critical Care Time: Yes Total Critical Care Time: 68 Attestation: Critical care time is separate from other billable procedures. There is a high probability of a significant, sudden or life-threatening deterioration that requires my full and direct attention, intervention and personal management. This critical care time includes consultation with family and other consulting doctors, review of records, and interpretation of data from labs, EKGs and imaging as well as managements of acute management of NSTEMI, parenteral heparin, extended stay with continued re-evaluation and management due to bed unavailability. 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: without group home use Prescriptions: No Action furosemide [Lasix] 20 mg tablet 20 mg PO QAM Qty: 14 0RF atorvastatin 40 mg tablet 40 mg PO DAILY clopidogrel 75 mg tablet 75 mg PO DAILY metoprolol succinate 25 mg tablet extended release 24 hr 25 mg PO DAILY glipizide 5 mg tablet 5 mg PO DAILY Qty: 90 1RF allopurinol 100 mg tablet 100 mg PO DAILY Qty: 90 3RF levothyroxine 50 mcg tablet 50 mcg PO DAILY Qty: 90 3RF losartan 25 mg tablet 25 mg PO DAILY Qty: 90 3RF aspirin [Adult Low Dose Aspirin] 81 mg tablet,delayed release (DR/EC) 81 mg PO DAILY mirtazapine 15 mg tablet 15 mg PO BEDTIME Qty: 90 3RF (DME) Glucose test strip 0 .Route .MEDSUPPLY Qty: 100 11RF Rx Instructions: As directed midazolam 5 mg/spray (0.1 mL) spray,non-aerosol 1 spray intranasal ONCE Qty: 2 0RF Rx Instructions: may repeat dose in other nostril after 10 minutes if inadequate response; to use as needed for seizure that won't stop Alive Calcium-Vitamin D3 260 mg calcium- 25 mcg-50 mg Tablet,Chewable 1 tab PO DAILY Referrals: Oscar Lozano MD [Primary Care Provider] -
[2023-12-19 12:32] LABS: PTT Partial Thromboplastin Tim 26 SECONDS (25.1-36.5)
[2023-12-19 12:33] LABS: INR 1.1 (0.9-1.3); Prothrombin Time 12.8 SECONDS (9.4-12.5)
[2023-12-19 12:35] LABS: Alanine Aminotransferase 32 IU/L (<35); Albumin 3.7 g/dL (3.5-5.0); Albumin Globulin Ratio 1.1 (1.0-2.8); Alkaline Phosphatase 104 U/L (38-126); Aspartate Aminotransferase 29 IU/L (14-36); BUN Creatinine Ratio 10.4 (6-22); Bilirubin Total 0.8 mg/dL (0.2-1.3); Blood Urea Nitrogen 18 mg/dL (7-17); Calcium 8.8 mg/dL (8.4-10.2); Carbon Dioxide 17 mmol/L (22-32); Chloride 108 mmol/L (98-107); Creatine Kinase 86 U/L (30-135); Estimated Glomerular Filt Rate 29 mL/min (>60); Globulin 3.3 g/dL (1.7-4.1); Glucose 278 mg/dL (80-110); HEMOLYSIS 26 (0-50); Lipase 189 U/L (23-300); Magnesium 1.9 mg/dL (1.6-2.3); Potassium 3.7 mmol/L (3.4-5.1); Sodium 138 mmol/L (137-145)
[2023-12-19 12:37] LABS: Add Manual Diff / Slide Review NO; Basophils Absolute Auto 0 /uL (0-100); Basophils Percent Auto 0.6 % (0-2); Eosinophils Absolute Auto 100 /uL (0-450); Eosinophils Percent Auto 0.8 % (2-4); Hematocrit 31.8 % (36-46); Hemoglobin 10.8 g/dL (12.0-16.0); Lymphocytes Absolute Auto 2700 /uL (1100-4500); Lymphocytes Percent Auto 35.2 % (25-40); Mean Corpuscular HGB Conc 33.9 % (30-36); Mean Corpuscular Hemoglobin 30.1 PG (26-34); Mean Corpuscular Volume 88.9 fL (80-100); Monocytes Absolute Auto 500 /uL (0-900); Neutrophils Absolute Auto 4400 /uL (1500-7000); Neutrophils Percent Auto 57.4 % (50-75); Platelet Count 170 X10^3/uL (150-400); Red Blood Cell Count 3.58 X10^6/uL (4.0-5.2); Red Cell Distribution Width 14.8 % (11.6-14.8); White Blood Cell Count 7.7 X10^3/uL (4.5-11.0)
[2023-12-19 13:07] LABS: Troponin I 0.158 ng/mL (0.01-0.034)
[2023-12-19] MEDS: NITROGLYCERIN 0.4 MG SL TAB SL ×2 (13:14→15:24)
[2023-12-19] MEDS: SODIUM CHLORIDE 0.9% 1,000 ML 150 ML IV (13:14)
[2023-12-19] MEDS: HEPARIN 5,000 UNIT/ML VIAL 4450 UNIT IV (13:49)
[2023-12-19] MEDS: HEPARIN DRIP 25,000 UNIT/500 ML IV.SOLN 17.853 UNIT IV (13:50)
--- NOTE | 2023-12-19 14:23 | PC.NURSE ---
1215 Upon arrival to ED patient reports her pain was initially an 8/10, and now after 1 nitro and some fentanyl in transport her pain is a 5/10.
--- NOTE | 2023-12-19 14:24 | PC.NURSE ---
1345 Patient reports reduction of pain after 2nd dose of nitro (1st dose given by EMS) from 5/10 to a 3/10.
[2023-12-19] MEDS: ACETAMINOPHEN 325 MG TABLET 975 MG PO (14:26)
--- NOTE | 2023-12-19 14:55 | PC.NURSE ---
Patient states chest pain is resolved, now experiencing chest heaviness 02/03. Dr. Chanel notified and orders Nitro SL.
[2023-12-19 20:40] LABS: PTT Partial Thromboplastin Tim 180 SECONDS (25.1-36.5)
--- NOTE | 2023-12-19 22:42 | PC.NURSE ---
DATA COMMUNICATIONS TECHNICIAN Note: called [facility], [facility], [facility], [facility]le Bryan, . All facilities currently don't have any beds available for 2-4 days. Will call [facility] next.
--- NOTE | 2023-12-19 22:45 | PC.NURSE ---
Patient placed on hospital bed for comfort, call light within reach. Patient resting on hospital bed, denies chest pain/pressure tightness at this time.
--- NOTE | 2023-12-19 23:27 | PC.NURSE ---
Report given to VANESSA Wilder.
[2023-12-20] VITALS (71 sets, daily range): BP systolic 90–147; BP diastolic 44–80; PULSE 54–82; RESP 10–32; O2SAT 94–100
--- NOTE | 2023-12-20 00:51 | PC.NURSE ---
After calling previous facilities and having no beds available, I called [facility] at [phone] about assistance finding a bed. I heard back from [facility] at 0030 and they said that they do have a bed and need to speak to their hospitalist about it and will call back after with a possible bed placement.
[2023-12-20 04:09] LABS: Add Manual Diff / Slide Review NO; Basophils Absolute Auto 0 /uL (0-100); Basophils Percent Auto 0.8 % (0-2); Eosinophils Absolute Auto 100 /uL (0-450); Eosinophils Percent Auto 1.4 % (2-4); Hematocrit 28.6 % (36-46); Hemoglobin 9.7 g/dL (12.0-16.0); Lymphocytes Absolute Auto 1900 /uL (1100-4500); Lymphocytes Percent Auto 41.7 % (25-40); Mean Corpuscular Hemoglobin 30.3 PG (26-34); Mean Corpuscular Volume 89.2 fL (80-100); Monocytes Absolute Auto 300 /uL (0-900); Monocytes Percent Auto 6.3 % (3-14); Neutrophils Absolute Auto 2300 /uL (1500-7000); Neutrophils Percent Auto 49.8 % (50-75); Platelet Count 139 X10^3/uL (150-400); Red Blood Cell Count 3.21 X10^6/uL (4.0-5.2); Red Cell Distribution Width 14.3 % (11.6-14.8); White Blood Cell Count 4.6 X10^3/uL (4.5-11.0)
[2023-12-20] MEDS: SODIUM CHLORIDE 0.9% 1,000 ML 150 ML IV (04:15)
[2023-12-20 04:19] LABS: BUN Creatinine Ratio 10.6 (6-22); Blood Urea Nitrogen 19 mg/dL (7-17); Calcium 8.9 mg/dL (8.4-10.2); Carbon Dioxide 20 mmol/L (22-32); Chloride 108 mmol/L (98-107); Estimated Glomerular Filt Rate 28 mL/min (>60); Glucose 190 mg/dL (80-110); HEMOLYSIS < 15 (0-50); Potassium 3.7 mmol/L (3.4-5.1); Sodium 137 mmol/L (137-145)
[2023-12-20 04:33] LABS: Troponin I 0.901 ng/mL (0.01-0.034)
--- NOTE | 2023-12-20 05:03 | PC.NURSE ---
Addendum entered by Gladis Mccollum CNA 12/20/23 05:43: I also spoke to Maureen from [facility] on 2 separate occaisions as she was following up to see if any progress has been made. She is still working on getting ahold of the [facility] hospitalist as well. Original Note: I spoke to Mariajose at 0300 following up to see if she was able to get ahold of their hospitalist regarding bed placement. She stated that the hospitalist is working the floor and she hasn't been able to get ahold of them at all and will try paging them again. I called back at 0500 and spoke to Mariajose again to see if that bed was even still available for the patient and to see if there was any update regarding getting ahold of the hospitalist. She stated that the bed is indeed still available for the patient but still hasn't been able to contact their hospitalist. She also stated that nothing will move forward for bed placement until day shift arrives at [facility] and will call back if anything changes.
[2023-12-20 06:16] LABS: PTT Partial Thromboplastin Tim 55 SECONDS (25.1-36.5)
[2023-12-20] MEDS: NITROGLYCERIN 0.4 MG SL TAB SL (08:43)
[2023-12-20] MEDS: NITROGLYCERIN OINT 1 INCH/GM OINT...G. 0.5 INCH TOP (09:02)
[2023-12-20 09:05] LABS: Hematocrit 28.2 % (36-46); Hemoglobin 9.6 g/dL (12.0-16.0); Platelet Count 144 X10^3/uL (150-400)
--- NOTE | 2023-12-20 09:05 | PC.NURSE ---
@ 0843 pt reports chest pain 4/10 epigastric. She denies pain radiating and denies SOB/lightheaded. EKG Performed and Provider notified with new orders (see MAR). Pt's pain decreased with oral nitro dose and pt's BP monitored. BP is maintaining and provider orders nitro paste be applied. Pt on 10min BP checks.
--- NOTE | 2023-12-20 10:27 | PC.NURSE ---
Assisted patient with setting up for self catheterization.
[2023-12-20 11:38] LABS: PTT Partial Thromboplastin Tim 54 SECONDS (25.1-36.5)
[2023-12-20] MEDS: SODIUM CHLORIDE 0.9% 1,000 ML 100 ML IV (12:14)
== END 2023-12-20 14:05 | disposition short-term general hospital (02) ==
PROVIDERS: Emergency Medicine; Emergency Provider Emergency Medicine; Family Provider Student in an Organized Health Care Education/Training Program; PCP Family Medicine
DX: I21.4 Non-ST elevation (NSTEMI) myocardial infarction (principal); N18.4 Chronic kidney disease, stage 4 (severe); I10 Essential (primary) hypertension; E03.9 Hypothyroidism, unspecified; E11.9 Type 2 diabetes mellitus without complications
CPT/HCPCS: 36415; 51701; 71045; 80048; 80053; 82550; 83605; 83690; 83735; 84484; 85014; 85018; 85025; 85049; 85610; 85730; 93005; 96365; 96366; 96375; 99284; 99291; J1644

== ENCOUNTER → 2023-12-31 10:14 | Outpatient (CLI) | payer MEDICARE, OTHER, SELFPAY ==
[2023-01-24 15:10] VITALS: BMI 29.2
[2023-12-31 11:56] LABS: Alanine Aminotransferase 14 IU/L (<35); Albumin 4.3 g/dL (3.5-5.0); Albumin Globulin Ratio 1.3 (1.0-2.8); Alkaline Phosphatase 138 U/L (38-126); Aspartate Aminotransferase 22 IU/L (14-36); BUN Creatinine Ratio 9.3 (6-22); Bilirubin Total 0.7 mg/dL (0.2-1.3); Blood Urea Nitrogen 15 mg/dL (7-17); Calcium 9.8 mg/dL (8.4-10.2); Carbon Dioxide 23 mmol/L (22-32); Chloride 109 mmol/L (98-107); Estimated Glomerular Filt Rate 32 mL/min (>60); Globulin 3.4 g/dL (1.7-4.1); Glucose 260 mg/dL (80-110); HEMOLYSIS < 15 (0-50); Potassium 4.5 mmol/L (3.4-5.1); Sodium 142 mmol/L (137-145); Total Protein 7.7 g/dL (6.3-8.2)
== END ==
PROVIDERS: Family Provider Student in an Organized Health Care Education/Training Program; PCP Family Medicine; Referring Provider Family Medicine; Visit Provider Family Medicine
DX: N17.9 Acute kidney failure, unspecified (principal); I21.4 Non-ST elevation (NSTEMI) myocardial infarction; I10 Essential (primary) hypertension
CPT/HCPCS: 36415; 80053

== ENCOUNTER → 2024-04-05 08:20 | Outpatient (CLI) | payer MEDICARE, OTHER, SELFPAY ==
[2023-01-24 15:10] VITALS: BMI 29.2
[2024-04-05 09:27] LABS: Hemoglobin A1C% w Est Avg Glu 7.2 % (4.0-6.0)
[2024-04-05 09:32] LABS: Cholesterol 128 mg/dL (140-199); HDL Cholesterol 37 mg/dL (40-60); LDL Cholesterol Calculated 32 mg/dL (<100); Triglycerides 297 mg/dL (35-150)
== END ==
LOC: LAB 08:22
PROVIDERS: Family Provider Student in an Organized Health Care Education/Training Program; PCP Family Medicine; Referring Provider Family Medicine; Visit Provider Family Medicine
DX: I12.9 Hypertensive chronic kidney disease with stage 1 through stage 4 chronic kidney disease, or unspecified chronic kidney disease (principal); E11.9 Type 2 diabetes mellitus without complications; N18.4 Chronic kidney disease, stage 4 (severe); E03.9 Hypothyroidism, unspecified; D64.9 Anemia, unspecified
CPT/HCPCS: 36415; 80061; 83036

== ENCOUNTER → 2024-07-16 07:44 | Outpatient (CLI) | payer MEDICARE, OTHER, SELFPAY ==
[2023-01-24 15:10] VITALS: BMI 29.2
--- NOTE | 2024-07-16 | DI.ECHO.S_ITS ---
[facility] : : [address] : : [place] : : [id number] : : Phone: [phone] Echocardiogram Report + + :Name: DOMENICO ONEILL Study Date: 07/16/2024 Height: 60 in : :[facility] ReadingLocation: Weight: 157 lb : : Gender: Female BSA: 1.7 m2 : :: 1940 Age: 83 yrs BP: 152/64 mmHg: :Reason For Study: CAD : :Ordering Physician: KI, : :ROXANA Aaron Performed By: Rachel Moe : :Referring: ROXANA CARTY : + + Interpretation Summary The patient was in sinus rhythm with heart rates between 55-64 bpm during the exam. The ejection fraction is estimated to be 50-55%. Diastolic function could not be accurately assessed due to contradictory data. The right ventricle is normal in size and function. There is mild mitral regurgitation. The right ventricular systolic pressure is estimated to be at least 27 mmHg based on an estimated right atrial pressure of 3 mm Hg. Compared to the prior study dated 12/21/2023, the segmental wall motion abnormalities have resolved. Procedure: A two-dimensional transthoracic echocardiogram with color flow and Doppler was performed. The study quality was technically adequate. Comparison is made with the echocardiogram of 12-21-23. The patient was in sinus rhythm with heart rates between 55-64 bpm during the exam. Left Ventricle: The left ventricle is normal in size and wall thickness. The ejection fraction is estimated to be 50-55%. Diastolic function could not be accurately assessed due to contradictory data. Right Ventricle: The right ventricle is normal in size and function. Atria: The left atrial size is normal. Right atrial size is normal. The interatrial septum grossly appears intact with no obvious evidence for an atrial septal defect. Lipomatous hypertrophy of the interatrial septum is noted. Mitral Valve: The mitral valve leaflets appear mildly thickened, but open well. There is mild mitral regurgitation. Aortic Valve: The aortic valve is trileaflet. The aortic valve opens well. There is no aortic valve stenosis. No aortic regurgitation is present. Tricuspid Valve: The tricuspid valve leaflets are thin and pliable. There is a trace or physiologic amount of tricuspid regurgitation. The right ventricular systolic pressure is estimated to be at least 27 mmHg based on an estimated right atrial pressure of 3 mm Hg. Pulmonic Valve: The pulmonic valve is not well seen, but is grossly normal. There is no pulmonic valvular regurgitation. Great Vessels: The aortic root is normal size. The ascending aorta is normal in size. The aortic arch is normal in size. The IVC is of normal diameter and collapses greater than 50% with a sniff. This suggests a low right atrial pressure of 3 mm Hg. Pericardium/ Pleura There is no pericardial effusion. There is no pleural effusion. MMode/2D Measurements & Calculations LVIDd: 4.6 cm LVOT diam: 1.9 cm LVIDs: 3.3 cm Ao root diam: 2.9 cm FS: 26.7 % asc Aorta Diam: 3.2 cm EPSS: 0.61 cm Ao Arch Diam (Prox Trans): 2.0 cm IVSd: 0.93 cm LVPWd: 0.74 cm LV slade. diameter/BSA (cm/m^2): 2.7 LV sys. diameter/BSA (cm/m^2): 2.0 LA A2 area: 19.5 cm2 RA long axis: 4.8 cm LA A4 area: 17.9 cm2 RA area: 11.6 cm2 LA length (vol): 5.5 cm RA vol: 23.9 ml LA vol: 53.9 ml RA : 14.2 ml/m2 LA vol index: 32.0 ml/m2 IVC diam: 1.0 cm RVD1 (basal): 2.3 cm TAPSE: 2.1 cm Doppler Measurements & Calculations Ao V2 max: 168.3 cm/sec LVOT Max Yusef: 87.9 cm/sec Ao V2 mean: 114.7 cm/sec LV V1 max P.1 mmHg Ao max P.3 mmHg LV V1 VTI: 21.5 cm Ao mean P.0 mmHg ROCAEL(I,D): 1.5 cm2 Ao V2 VTI: 40.3 cm ROCAEL(V,D): 1.4 cm2 sev ratio: 0.53 ROCAEL indexed to BSA (cm^2/m^2): 0.87 MV E max yusef: 94.8 cm/sec TR max yusef: 242.4 cm/sec MV A max yusef: 105.1 cm/sec TR max P.5 mmHg MV E/A: 0.90 PA V2 max: 75.4 cm/sec Med Peak E' Yusef: 5.9 cm/sec PA V2 mean: 49.9 cm/sec E/E' med: 16.1 PA mean P.2 mmHg Lat Peak E' Yusef: 5.5 cm/sec PA pr(Accel): 19.1 mmHg E/E' lat: 17.4 E/e' average: 16.8 MV dec time: 0.27 sec SV(LVOT): 58.7 ml Reading Physician:03:50 PM
== END ==
PROVIDERS: Family Provider Student in an Organized Health Care Education/Training Program; PCP Family Medicine; Referring Provider Internal Medicine Cardiovascular Disease; Visit Provider Internal Medicine Cardiovascular Disease
DX: I34.0 Nonrheumatic mitral (valve) insufficiency (principal); I25.10 Atherosclerotic heart disease of native coronary artery without angina pectoris
CPT/HCPCS: 93306